=== PATIENT | female | born 1985 | race Caucasian/White ===

== ENCOUNTER 2024-10-12 08:29 | Outpatient (AMB) | payer OTHER, SELFPAY ==
--- NOTE | 2024-10-12 08:49 | MHC.PC.OV ---
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 Accompanied by: Self / Same As Patient Allergies codeine Allergy (Verified 10/12/24 09:06) Hives Medication List - Last Reconciled 10/12/24 by Meme Huffman MD No Known Home Meds Tobacco use date assessed: 10/12/24 Dental Screening Dental Screen Date: 10/12/24 Did you have a dental visit in the last 12 months?: Yes Did you have a dental problem in the last 6 months where you did not have access to dental care?: No Was dental information given to patient?: Patient has dentist HPI HPI Comments History of Present Illness Details The patient is a 39-year-old female presenting with concerns primarily related to obesity management. She has a history of considering surgical intervention for weight loss, specifically gastric bypass surgery. Unforeseen circumstances related to relocation prevented her from undergoing the procedure. The patient now seeks additional weight management solutions, including possible injectable treatments. Apart from weight-related issues, the patient also expressed concerns regarding skin lesion that developed after moving three years ago. Despite trying various [id number] treatments, the condition persists with fluctuating severity. The patient experiences instances of dyspnea and palpitations during routine activities, a condition she associates with her weight challenges. These episodes have become more frequent without an evident external trigger. The patient also reports significant menstrual irregularities, experiencing extended cycles of 13 to 14 days. 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 The patient retains an intrauterine device (IUD) since its implementation amidst inconsistent menstrual patterns. She also has mild recurrent major depression with anxiety that she has been able to deal with it with no need for counseling or medication. [facility] Surgical History History of tendonitis History of ovarian cyst Family History Mother Diabetes Hypertension Father No problems noted. Paternal Grandmother Breast cancer Social History (Updated 10/12/24 @ 09:10 by Meme Huffman MD) Housing: Apartment Alcohol intake: current Alcohol intake frequency: a few times a month Alcohol type: hard liquor Patient Tobacco Use Status: Never used Tobacco e-Cigarette/Vaping Use: Never Used Second Hand Smoke Exposure: No service: No Current occupational status: employed Current occupational exposures/hazards: No Cognitive needs: No Hearing needs: No Vision needs: Yes Questionnaire PHQ-9 Over the last 2 weeks, how often have you been bothered by any of the following problems? 1. Little interest or pleasure in doing things: several days 2. Feeling down, depressed, or hopeless: not at all 3. Trouble falling or staying asleep, or sleeping too much: nearly every day 4. Feeling tired or having little energy: several days 5. Poor appetite or overeating: several days 6. Feeling bad about yourself - or that you are a failure or have let yourself or your family down: not at all 7. Trouble concentrating on things, such as reading the newspaper or watching television: not at all 8. Moving or speaking so slowly that other people could have noticed. Or the opposite - being so fidgety or restless that you have been moving around a lot more than usual: not at all 9. Thoughts that you would be better off or of hurting yourself in some way: not at all Total score: 6 Depression Screening Interpretation: Positive Depression Screening Follow-up: Existing condition and Follow-up Visit Requested Depression Screening Done: Yes 18632 - PHQ-9 Billing: Yes Source: Developed by Drs. Robbi Parmar, Radha Dey, Parth Baltazar and colleagues, with an educational polo from [employer]. Thrive Questionnaire Date Thrive assessed: 10/06/24 I am a: Patient What is your living situation today?: I have a steady place to live Within the past 12 months, did the food you bought not last and you didn't have the money to get more?: Never true Within the past 12 months, did you worry whether your food would run out before you got money to buy more?: Never true Do you have trouble paying for medicines?: No Do you have trouble getting transportation to medical appointments?: No Do you have trouble paying your heating and electricity bill?: No Do you have trouble taking care of your child, family member or friend?: No Do you have trouble with day-to-day activities such as bathing, preparing meals, shopping, managing finances, etc.?: No Are you currently unemployed and looking for a job?: No Are you interested in more education?: No Please select the resources that you would like help with: None Currently or been in a relationship where the following occur: I choose not to answer THRIVE Score: 0 AUDIT C Alcohol Use Questionnaire (AUDIT-C) 1. How often do you have a drink containing alcohol?: 2-4 times a month 2. How many drinks containing alcohol do you have on a typical day when you are drinking?: 5 or 6 3. How often do you have six or more drinks on one occasion?: Monthly Total Score: 6 VAN-7 AMB Questionnaire VAN-7 Date VAN - 7 assessed: 10/12/24 Feeling nervous, anxious, or on edge: 1 = Several days Not being able to stop or control worryin = Not at all Worrying too much about different things: 1 = Several days Trouble relaxin = Several days Being so restless that it is hard to sit still: 1 = Several days Becoming easily annoyed or irritable: 1 = Several days Feeling afraid as if something awful might happen: 0 = Not at all Total VAN-7 score (0-4 normal; 5-9 mild; 10-14 moderate; 15-21 severe): 5 Source: Developed by Drs. Robbi Parmar, Radha Dey, aPrth Baltazar and colleagues, with an educational polo from [employer]. VAN-7 Assessment Billing VAN-7 Assessment Tool: VAN-7 Assessment 03094 Review of Systems Const All systems reviewed & are unremarkable except as noted in HPI and below Card Denies chest pain at rest, Denies chest pain with activity, Denies edema, Denies irregular heart rhythm, Denies claudication, Reports dyspnea, Reports dyspnea on exertion, Denies orthopnea, Denies paroxysmal nocturnal dyspnea and Denies slow heart rate Resp Denies cough, Reports dyspnea and Reports dyspnea on exertion Skin/Breast Reports lesions Neuro Denies lack of coordination Physical exam (Primary Care) Vital Signs: Last Vital Signs BP 136/88 10/12/24 08:50 BMI result Body Mass Index 50.5 BMI Assessment/Plan discussion: High BMI High, discussed plan: lifestyle, weight reduction, dietary and physical activity Tobacco/Smoking Status: Tobacco use Status Tobacco use date assessed 10/12/24 10/12/24 09:01 Patient Tobacco Use Status Never used Tobacco 10/12/24 09:10 e-Cigarette/Vaping Use Never Used 10/12/24 09:10 PHQ-9: PHQ-9 Score PHQ-9: Total score 6 10/12/24 09:12 Depression Screening Interpretation: Positive Depression Screening Follow-up: Existing condition and Follow-up Visit Requested Thrive Assessment: Date of Thrive Assessment Date Thrive assessed 10/06/24 10/12/24 08:52 Currently or been in a relationship where the following occur: I choose not to answer Resp Effort & Inspection: normal respiratory effort Auscultation: clear to auscultation bilaterally Cardio Jugular venous distension: no JVD Rate: regular rate Rhythm: regular rhythm Heart sounds: S1 normal heart sound present and S2 normal heart sound present Skin Lesions: lesion noted (left front side of the face) Extrem General: Yes full ROM Coding Level of Care Code New Pt Level 4 (19105) Complex EM visit Add On G2211 Diagnoses Mild recurrent major depression F33.0 BMI 50.0-59.9, adult Z68.43 VAN (generalized anxiety disorder) F41.1 Menstrual irregularity N92.6 Dyspnea R06.00 Skin lesion L98.9 Additional Codes VAN-7 Assessment Billing - VAN-7 Assessment Tool: VAN-7 Assessment 09506 ([id number]) PHQ-9 - 13295 - PHQ-9 Billing: Yes ([id number]) Time Spent (min) 25 Assessment & Plan Assessment & Plan (1) Mild recurrent major depression: Code(s): F33.0 - Major depressive disorder, recurrent, mild Category: Medical (2) BMI 50.0-59.9, adult: Code(s): Z68.43 - Body mass index [BMI] 50.0-59.9, adult Category: Medical (3) VAN (generalized anxiety disorder): Code(s): F41.1 - Generalized anxiety disorder Category: Medical (4) Menstrual irregularity: Code(s): N92.6 - Irregular menstruation, unspecified Category: Medical (5) Dyspnea: Code(s): R06.00 - Dyspnea, unspecified Category: Medical (6) Skin lesion: Code(s): L98.9 - Disorder of the skin and subcutaneous tissue, unspecified Category: Medical Plan I will refer the patient to a weight industrial management teacher to investigate options like injectable treatments, due to the previous cancellation of bariatric surgery. To address her skin lesion, a dermatological referral is warranted. To evaluate her dyspnea and palpitations, an EKG and chest X-ray are scheduled. Comprehensive blood tests, including panels for cholesterol, glucose, renal, hepatic functions, and thyroid levels, are planned. The patient will receive a referral to LITHOGRAPHIC CAMERA OPERATOR for her menstrual irregularities and IUD management. A mammogram is due for preventative screening, and moderation of alcohol intake was advised. Follow-up discussions will occur after diagnostics to reevaluate her treatment plan. Patient was informed and verbally consented to the use of an ambient scribe for clinic note documentation during this visit. I discussed various health concerns and management options with the patient. Regarding weight management, I emphasized the significance of lifestyle modifications and potential injectable therapies as alternatives to bariatric surgery. For her skin pigmentation issues, the benefits of consulting a art handler were highlighted, considering the ineffective results from [id number]-yxn-johnsud treatments. I explained the necessity of evaluating her cardiac health given her dyspnea and palpitations, hence the arrangement for an EKG and chest X-ray. Blood tests were planned to understand any underlying medical conditions. The importance of consistent LITHOGRAPHIC CAMERA OPERATOR follow-ups due to menstrual irregularities and the continued use of her IUD was stressed. Alongside discussing the mammogram's necessity, we briefly covered the need for reduced alcohol intake for her overall health. I detailed the referral process and assured her of further discussions upon receiving diagnostic results. Orders: Orders ECG 12 lead EKG Today R06.00 - Dyspnea, unspecified XR chest 2V Today R06.00 - Dyspnea, unspecified MM tomosynthesis screening BI Today Z12.31 - Encounter for screening mammogram for malignant neoplasm of breast Lipid Panel Today E78.5 - Hyperlipidemia, unspecified, Z68.43 - Body mass index [BMI] 50.0-59.9, adult Comprehensive [place]. Panel Fast Today Z68.43 - Body mass index [BMI] 50.0-59.9, adult Complete Blood Count Auto Diff Today Z68.43 - Body mass index [BMI] 50.0-59.9, adult Thyroid Stimulating Hormone Today Z68.43 - Body mass index [BMI] 50.0-59.9, adult Referrals Medical Weight Management Referral Z68.43 - Body mass index [BMI] 50.0-59.9, adult Dermatology Referral L98.9 - Disorder of the skin and subcutaneous tissue, unspecified LITHOGRAPHIC CAMERA OPERATOR Referral N92.6 - Irregular menstruation, unspecified Medications: Discontinued lidocaine 5% leave on most painful area for up to 12 hrs Discontinued Reason: Patient Completed Course 1 patch topical DAILY PRN 15 ea 0RF pain erythromycin Discontinued Reason: Patient Completed Course 1 appl ophthalmic (eye) TID 5 days 3.5 grams 0RF ketorolac Discontinued Reason: Patient Completed Course 10 mg PO TID 5 days PRN 15 tabs 0RF pain Patient Instructions: - Follow referral instructions for weight management, dermatology, and LITHOGRAPHIC CAMERA OPERATOR consultations. - Schedule and complete EKG and chest X-ray as advised. - Attend laboratory appointments for comprehensive blood tests. - Reduce alcohol intake, particularly on Fridays. - Follow up for a mammogram appointment. - Monitor symptoms and notify if there are any changes or worsening conditions.
[2024-10-12 08:50] VITALS: BP 136/88; BMI 50.5
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
--- OUTSIDE RECORDS SUMMARY | 2024-10-12 09:02 | XMS_ITS | Clinical Summary ---
Author Organization [facility] ity Address [address] [place] [address] Care Team Providers Care Metal Spray Operator Name Role Phone Unavailable Primary Care Provider Unavailabl e Social History Tobacco Use Types Packs/Day Years Used Date Smoking Tobacco: Never Assessed Comments Unknown Sex and Gender Information Value Date Recorded Sex Assigned at Not on file Legal Sex Female 4:33 AM EST Gender Identity Not on file Sexual Orientation Not on file Plan of Treatment Health Maintenance Due Date Last Done Comments Breast Cancer Screening 1984 DTaP,Tdap,and Td Vaccines (1 - Tdap) 2003 Hepatitis B Vaccines (1 of 3 - 19+ 3-dose series) 2003 Cervical Cancer Screening: P ap Smear 2005 COVID-19 Vaccine ( - 2023-2 5 season) 2024 Influenza Vaccine (Season Ended) 2025 HIB Vaccines Aged Out No longer eligi ble based on patient's age to complete this topic HPV Vaccines Aged Out No longer eligi ble based on patient's age to complete this topic Hepatitis A Vaccines Aged Out No long er eligible based on patient's age to complete this topic IPV Vaccines Aged Out No longer eligi ble based on patient's age to complete this topic MMR Vaccines Aged Out No longer eligi ble based on patient's age to complete this topic Meningococcal ACWY Vaccine Aged Out N o longer eligible based on patient's age to complete this topic Meningococcal B Vacine Aged Out No lo nger eligible based on patient's age to complete this topic Pneumococcal Vaccine: Pediat rics (0 to 5 Years) and At-Risk Patients (6 to 64 Years) Aged Out No longer eligible b ased on patient's age to complete this topic RSV Immunization Patients Un franchesca 20 months Aged Out No longer eligible b ased on patient's age to complete this topic Varicella Vaccines Aged Out No longer eligible based on patient's age to complete this topic
== END 2024-10-12 09:18 | disposition home or self-care (01) ==
LOC: HO.HMCH 08:30
PROVIDERS: Visit Provider Internal Medicine
DX: F33.0 Major depressive disorder, recurrent, mild (principal); Z68.43 Body mass index [BMI] 50.0-59.9, adult; F41.1 Generalized anxiety disorder; N92.6 Irregular menstruation, unspecified; R06.00 Dyspnea, unspecified; L98.9 Disorder of the skin and subcutaneous tissue, unspecified

== ENCOUNTER → 2024-10-12 08:29 | Outpatient (BNVA) | payer OTHER, SELFPAY | PROVIDERS: Visit Provider Internal Medicine | DX: F33.0 Major depressive disorder, recurrent, mild (principal); F41.1 Generalized anxiety disorder; N92.6 Irregular menstruation, unspecified; R06.00 Dyspnea, unspecified; L98.9 Disorder of the skin and subcutaneous tissue, unspecified | CPT/HCPCS: 96127; 99202 ==

== ENCOUNTER → 2024-11-05 13:40 | Outpatient (BNVA) | payer OTHER, SELFPAY | PROVIDERS: Visit Provider Physician Assistant Surgical ==

== ENCOUNTER 2024-11-11 08:09 | Outpatient (AMB) | payer OTHER, SELFPAY ==
--- OUTSIDE RECORDS SUMMARY | 2024-11-11 08:19 | XMS_ITS | Clinical Summary ---
Author Organization [facility] ity Address [address] [place] [address] Care Team Providers Care Driller And Reamer Name Role Phone Unavailable Primary Care Provider [...] age to complete this topic Meningococcal B Vaccine Aged Out No l onger eligible based on patient's age to complete [...]
--- OUTSIDE RECORDS SUMMARY | 2024-11-11 08:19 | XMS_ITS | Data Portability ---
Author Organization [facility] [place] Medicaid MRI Address [address] [place] [address] Care Team Providers Care Marketing Communications Leader Name Role Phone PREET WATSON Primary Care Provider [phone] PREET WATSON Referring Provider [phone] AAMIR LARA Analytical Technician HAIDER CLARK Analytical Technician [phone] Unavailable Referring Provider Unavailable Assessment Encounter Date [...] contrast - work related injury 2017 018 [facility], [address] [place] [address], [address], 8 14:37:43 Medication Orders ibuprofen 800 mg tablet 2017 018 INTERFACE [id number], [address] [place], [address], 8 10:52:34 methylpred nisolone acetate 40 mg/mL suspension for injection 2017 018 [email or web address] Not available 08:26:45 Patient TargetsNo targets recorded. Patient Instructions Encounter Date Encounter Id Patient Instructions Last Modified By Organization Details Last Modified Time 03/25/2017 [id number] patient was instructed that we would not [...] contr ast No observ ation record ed. [facility] (Medical Records) [address] [place] [address], [address], 12/27/2017 16:53:39 Result Notes None recorded. Problems No Known Problems Procedures Surgical History Date Name Laterality Status Provider Name and Address Organization Details Recorded Time 8 Shoulder Subacromial - LEFT - CS Injection completed MAYLIN Fitzgerald [address] [place] [address], [phone], [facility] 02/07/2018 08:31:10 7 Eric Suture Removal completed Nelson Reyes MD [address] [place], [phone], [facility] 12/31/2016 09:18:08 7 Eric Suture Removal completed Nelson Reyes MD [address] [place], [address], [facility] 12/24/2016 10:31:04 Imaging Results Imaging Date Name Status LastModified by Organiz ation Details LastModified Time 12/27/2017 MRI, shoulder, w/o contrast completed [facility] (Medical Records) [address] [place] [address], [address], 12/27/2017 16:53:39 Procedure Notes None recorded. Medical [...] Updated DateTime 02/07/2018 154.94 cm 46.5 kg/m2 135049.72 g Meme Kingston [facility] 02/07/2018 08:10:22 Date Recorded Body height Body mass index (BMI) Body weight Provider Name and Address Organization Details Last Updated DateTime 03/07/2018 154.94 cm 46.5 kg/m2 197221.72 g Patricia Arreola [facility] 03/07/2018 10:41:58 Date Recorded Pain severity - 0-10 verbal numeric rating [Score] - Reported Pain severity - 0-10 verbal numeric rating [Score] - Reported Provider Name and Address Organization Details Last Updated DateTime 03/07/2018 5 7 Not Available [facility] 05:53:08 Date Recorded Body height Body mass index (BMI) Body weight Provider Name and Address Organization Details Last Updated DateTime 03/25/2017 154.94 cm 46.5 kg/m2 226400.72 g Meme Kingston [facility] 03/25/2017 09:24:55 Date Recorded Body height Body mass index (BMI) Body weight Provider Name and Address Organization Details Last Updated DateTime 12/17/2017 154.94 cm 46.5 kg/m2 990950.72 g Meme Kingston [facility] 12/17/2017 13:24:32 Date Recorded Body height Body mass index (BMI) Body weight Provider Name and Address Organization Details Last Updated DateTime 12/27/2017 154.94 cm 46.5 kg/m2 431567.72 g Melissa Up [facility] 12/27/2017 09:06:42 Date Recorded Pain severity - 0-10 verbal numeric rating [Score] - Reported Provider Name and Address Organization Details Last Updated DateTime 12/27/2017 4 Not Available [facility] 8 05:52:56 Social History Question Answer Notes LastModified by Organizat ion Details LastModified Time Tobacco Smoking Status Former Smoker Bridgette salcedo [facility] 08/15/2016 13:03:04 What Is [...] available 2016 13:02:55 Medical History Condition Response Coronary Artery Disease N Heart Problems N Hereditary Defects N Gout N Tremors/Seizures/Dizziness/Epilepsy N Excessive Thirst/Fatigue N Lung Disease N Blood Clots N Fever, Chills, Headaches N Pacemaker N Heart Disease/Problems N Breathing Problems N Heart Attack (NE) N Sexually Transmitted Diseases N Bleeding Disorder/Tendencies or Anemia Y Stomach Ulcers N Diabetes N Skin Problems/Rash/Boils N Depression/Psychiatric Problems N Arthritis Y Tuberculosis N Cancer N Stroke N Eye Problems N Leg or Foot Ulcers N HIV/AIDS N Chest Pain/Heart Attack/Arrhythmia N Urinary Pain/Frequency/Retention N Stomach Problems/Reflux/GERD N Hepatitis N Rheumatoid Arthritis N Hypertension/High Blood Pressure N Osteoporosis N Kidney Disease N Gynecological HistoryNo gynecological history recorded. Obstetrics History GPAL:G 0 P 0 0 0 0 Past Encounters Encounter ID Performer Location Encounter Start Date Encounter Closed Date Diagnosis/Indication Diagnosis SNOMED-CT Code Diagnosis ICD10 Code Diagnosis Note [id number] Belem BARRERANKathy [address] [address] 08/15/2016 12:36:37 08/15/2016 14:14:17 Pain of joint of wrist 359910314 M25.539 Radial sty loid tenosynovitis 91742609 M65.4 [id number] Nelson Reyes MD OFFICE-[facility] a [address] [address] 09/12/2016 10:59:39 09/12/2016 11:51:06 Pain of joint of hand 074751176 M79.643 Radial sty loid tenosynovitis 77076473 M65.4 [id number] Belem Graham OFFICE-N. [address] [place] [address] 10/08/2016 10:37:56 10/08/2016 12:03:35 Radial styloid tenosynovitis 66808630 M65.4 Left [id number] [facility] [address] [address] 12/17/2016 12:14:25 12/17/2016 13:15:47 Radial styloid tenosynovitis 59721357 M65.4 Left [id number] [facility] [address] [address] 12/24/2016 09:56:04 12/24/2016 10:32:15 Radial styloid tenosynovitis 25313805 M65.4 [id number] Nelson [facility]yes [facility] [address] [address] 12/31/2016 08:59:51 12/31/2016 09:31:20 Radial styloid tenosynovitis 30369635 M65.4 [id number] Nelson Reyes MD OFFICE - [facility] [address] 01/28/2017 08:41:23 01/28/2017 09:54:57 Radial styloid tenosynovitis 17054716 M65.4 [id number] Nelson Reyes MD OFFICE - [address] [address] 02/25/2017 08:49:55 02/25/2017 09:14:21 Radial styloid tenosynovitis 68133311 M65.4 [id number] Belem Graham OFFICE - [address] [address] 03/25/2017 09:16:00 03/25/2017 10:03:29 Radial styloid tenosynovitis 46938473 M65.4 [id number] Juan Pablo Holt MD OFFICE - [address] [address] 12/17/2017 13:01:39 12/17/2017 14:12:00 Sprain of shoulder rotator cuff 1204408785 04 S43.422A [id number] Juan Pablo Holt MD OFFICE - [place] [address] [place] [address] 12/27/2017 08:55:28 12/27/2017 09:13:51 Sprain of shoulder rotator cuff 2855793318 04 S43.422A [id number] MAYLIN Fitzgerald OFFICE - [place] [address] [place] [address] 02/07/2018 08:00:13 02/07/2018 08:31:04 Sprain of shoulder rotator cuff 2382165437 04 S43.422A [id number] MAYLIN Fitzgerald OFFICE - [place] [address] [place] [address] 03/07/2018 10:17:29 03/07/2018 10:56:27 Sprain of shoulder rotator cuff 5433862523 04 S43.422A Health Concerns Section Related Observation LastModified by Organization Detai ls LastModified Time None Recorded Concern Status LastModified by Organization Details LastModified Time None Recorded Advance Directives Directive None Recorded Payers Insurance Date Sequence Insurance Name Policy Number Policy Gomez Covered Member ID Gomez Member ID Guarantor Name 01/28/2017 1 [email or web address] Yas Worthington [id number] Yas Worthington 10/08/2016 1 [place] [facility] Yas Worthington [id number] Yas Worthington 12/18/2017 [employer] Yas Worthington 12/19/2017 [employer] Yas Worthington 03/04/2018 1 [facility] (O) [id number] Yas Wortihngton [id number] Yas Worthington Notes Date Note Type Note [...] she denies numbness and tingling. Belem Graham [address] [place] [address], [phone], [facility] 03/25/2017 09:45:15 12/17/2017 text/html This is [...] She went to the emergency room at [facility] where x-rays of her shoulder were [...] for plantar fasciitis. Juan Pablo Holt MD [address] [place] [address], [phone], [facility] 12/17/2017 13:56:47 12/27/2017 text/html Judy is seen in follow-up. MRI scan was completed this morning at [facility]. Review of the study shows degenerative cyst in the posterior aspect of the humeral head with some very small sub-bursal fluid collection. No evidence of rotator cuff tear or significant labral pathology. Biceps tendon appears to be intact as well. She is currently working full duty and having some mild discomfort at work Juan Pablo Holt MD [address] [place] [address], [phone], [facility] 12/27/2017 09:14:21 02/07/2018 text/html Judy is seen in follow-up. She is currently working full duty and has continued to have the same symptoms. She finished physical therapy after her last visit with us. MAYLIN Fitzgerald [address] [place] [address], [phone], [facility] 02/07/2018 08:33:10 03/07/2018 text/html Yas is follo wing up here on her sprain of rotator cuff. She did not have great relief with the injection last time. She continues her home exercises and still has persistent pain. She has been working full-time. MAYLIN Fitzgerald [address] [place], [address], [facility] 03/07/2018 11:14:50 OBGyn Episode No OBEpisode recorded.
--- NOTE | 2024-11-11 10:30 | MHC.OFFVISWM ---
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 BMI 50.7: Details: Start time: 10.30am, End time: 11.07am ?I spent 32 minutes speaking with the patient on the phone plus an additional 5 minutes reviewing and updating records for a total of 37 minutes HPI Comments Details: Previous weight loss: previous weight loss program in preparation of bariatric surgery (lost 20lbs) Wakes up: 4.20am, Sleeps: 7.30pm Breakfast: most often skips, 5am (ham and cheese sandwich) Lunch: 1pm (left over from night before) Dinner: 4pm (rice, beans, pork, or chicken) Snacks: 10am (chips, orange), 5pm (chips, cookies, apple, grapes) Exercise: none Beverages: Coffee: none, tea: none, soda: none, juice: Crystal light, ETOH: 1/wk (Tequila a few shots) [facility] Medical History (Updated 11/11/24 @ 10:32 by Erasto Quintanilla MD) Morbid obesity Surgical History History of tendonitis History of ovarian cyst Family History Mother Diabetes Hypertension Father No problems noted. Paternal Grandmother Breast cancer Social History (Updated 10/12/24 @ 09:10 by Meme Huffman MD) Housing: Apartment Alcohol intake: current Alcohol intake frequency: a few times a month Alcohol type: hard liquor Patient Tobacco Use Status: Never used Tobacco e-Cigarette/Vaping Use: Never Used Second Hand Smoke Exposure: No service: No Current occupational status: employed Current occupational exposures/hazards: No Cognitive needs: No Hearing needs: No Vision needs: Yes Telehealth Telehealth Telehealth Platform: Telephone Location of provider rendering services: practice address Location of patient: address on file Patient Identification confirmed using: Name, : Yes Telehealth method: voice only Patient verbally consented to treatment: Yes Patient verbally consented to billing insurance company: Yes Patient informed of any privacy concerns related to visit: Yes Minutes spent on Phone/Video with Pt.: 37 Assessment & Plan Assessment & Plan (1) Morbid obesity: Code(s): E66.01 - Morbid (severe) obesity due to excess calories Category: Medical Plan: 1.? Plan for lap sleeve gastrectomy. If diaphragmatic or ventral hernias are present at time of surgery, these will be repaired laparoscopically as well. I emphasized the importance of close follow-up, adherence to instructions and good communication. The surgery does not replace the need to change your lifestlyle which is the cause of the obesity problem. The surgery provides the motivation to try again to change your lifestyle, it reduces the appetite and make the transition to a better lifestyle easier and doubles the amount of weight you would lose compared to doing the lifestyle change without the surgery. You will need to be on a liquid diet with protein shakes for 2 weeks before surgery to maximize weight loss and boost your nutritional status to recover better from surgery and also for the first two weeks after surgery to let the stomach heal before we introduce other foods. After the first 2 weeks we will introduce protein bars and soft foods like scrambled eggs, cottage cheese and yogurt and after the 6th week will introduce meat, fish and cooked vegetables in small amounts. Over time you should be able to eat everything in small amounts. Side effects like nausea, vomiting, heartburn or abdominal pain are not common in the practice unless you are not following in the practice. This operation requires lifetime commitment to following in our practice and communication with me. You will much less weight and experience side effects if you don?t communicate or not following in the practice. Complications are rare and in our practice is about 1/10 of the national average. However, you can develop bleeding that may require transfusion (hasn?t happened for year in the practice), you may from complications (we did not have any deaths in the practice) and infections. Infections are usually a result of breakdown in communication or not understanding or following directions correctly. They are difficult to treat, they can happen during the first 6 weeks, they may require to be in the hospital for weeks or even months, not being able to eat by mouth and you may have drains and surgeries to try and correct the issue. Other risks and complications include possible conversion to an open procedure, leaks, small bowel obstruction, blood clots, cardiac, or pulmonary complications, as termite control servicer complications such as ulcers, insufficient weight loss and vitamin deficiencies. 2. You will receive a link of our software arnaldo to generate an individualized nutritional and exercise plan specific for you. Please send me a screenshot of the plans you will generate Meal to include lean meat (beef, fish, pork, turkey, chicken), or hungarian yogurt, or egg whites, or beans with a salad with olive oil and fruits (berries, pears, apples, kiwi). Avoid salt, breads, potatoes, rice, pasta, desserts. ?3. If you choose shakes, each shake would be drunk slowly, like coffee in a period of 2 hours. ?4. If you choose bars, cut each bar in 4 pieces and eat each piece in 30min ?to make each bar last 2 hours. ?5. I emphasized the importance of measuring accurately the food portion and measure it when serving the food in plate ?6. The meal portions include a specific number of forks of meat and salad. You always eat the meat portion but you can replace up to half of salad/vegetables portion with rice, potatoes or pasta, or a fruit ?if you like. The less you do it the better weight loss will be. ?7. One full-size fork is what it can be scooped on the fork without falling aside and not what can be bit with the fork. Use regular forks like those you find in a typical restaurant. ?8.? Please buy the body composition scale we discussed and send me weight measurements as soon as possible and then once a week. Always include your diet and exercise plan. 9. The best choice would be to purchase a stationary bike, elliptical or treadmill at home that can track calories. You can create and exercise plan with the [employer] arnaldo. ?10.?It is important of avoiding and for at least 18 months postoperatively and has been discussed at the infosession. ?11. Goal is to lose at least 1.5-2lbs per week ?12. Goal to lose 10% of your weight before surgery, which is about 27lbs. Ultimate weight goal: 260lbs before surgery 13. Please follow the diet plan exactly without any change. If you don't like something about the plan or you feel hungry you need to communicate with me so I can help you revise the plan. You should not change the plan yourself. 14. To be scheduled for EGD to assess the stomach's anatomy. The possibility of biopsies was discussed. Patient needs to avoid use of NSAIDs and aspirin for 1 week prior to EGD. You must be on liquids only the day before your endoscopy. Risks of perforation and bleeding was discussed with the patient. This will be an outpatient procedure with IV sedation. Orders: Orders Hemoglobin A1c Today E66.01 - Morbid (severe) obesity due to excess calories, Z68.43 - Body mass index [BMI] 50.0-59.9, adult Complete Blood Count Auto Diff Today E66.01 - Morbid (severe) obesity due to excess calories, Z68.43 - Body mass index [BMI] 50.0-59.9, adult Lipid Panel Today E66.01 - Morbid (severe) obesity due to excess calories, Z68.43 - Body mass index [BMI] 50.0-59.9, adult Comprehensive Met. Panel Today E66.01 - Morbid (severe) obesity due to excess calories, Z68.43 - Body mass index [BMI] 50.0-59.9, adult Vitamin B12 and Folate Today E66.01 - Morbid (severe) obesity due to excess calories, Z68.43 - Body mass index [BMI] 50.0-59.9, adult Vitamin B1 Today E66.01 - Morbid (severe) obesity due to excess calories, Z68.43 - Body mass index [BMI] 50.0-59.9, adult TSH reflex Free T4 Today E66.01 - Morbid (severe) obesity due to excess calories, Z68.43 - Body mass index [BMI] 50.0-59.9, adult US abdomen comp w elastography Today E66.01 - Morbid (severe) obesity due to excess calories, Z68.43 - Body mass index [BMI] 50.0-59.9, adult XR chest 2V Today E66.01 - Morbid (severe) obesity due to excess calories, Z68.43 - Body mass index [BMI] 50.0-59.9, adult FL upper GI w air Today E66.01 - Morbid (severe) obesity due to excess calories, Z68.43 - Body mass index [BMI] 50.0-59.9, adult Insulin Today E66.01 - Morbid (severe) obesity due to excess calories, Z68.43 - Body mass index [BMI] 50.0-59.9, adult H Pylori Breath Test Today E66.01 - Morbid (severe) obesity due to excess calories, Z68.43 - Body mass index [BMI] 50.0-59.9, adult IRON PROFILE Today E66.01 - Morbid (severe) obesity due to excess calories, Z68.43 - Body mass index [BMI] 50.0-59.9, adult Zinc Today E66.01 - Morbid (severe) obesity due to excess calories, Z68.43 - Body mass index [BMI] 50.0-59.9, adult C Reactive Protein Today E66.01 - Morbid (severe) obesity due to excess calories, Z68.43 - Body mass index [BMI] 50.0-59.9, adult Vitamin A Today E66.01 - Morbid (severe) obesity due to excess calories, Z68.43 - Body mass index [BMI] 50.0-59.9, adult Ferritin Today E66.01 - Morbid (severe) obesity due to excess calories, Z68.43 - Body mass index [BMI] 50.0-59.9, adult Vitamin D 25-OH Total Today E66.01 - Morbid (severe) obesity due to excess calories, Z68.43 - Body mass index [BMI] 50.0-59.9, adult ECG 12 lead EKG Today E66.01 - Morbid (severe) obesity due to excess calories, Z68.43 - Body mass index [BMI] 50.0-59.9, adult Referrals Behavioral Health Referral E66.01 - Morbid (severe) obesity due to excess calories, Z68.43 - Body mass index [BMI] 50.0-59.9, adult Nutrition/Dietitian Referral E66.01 - Morbid (severe) obesity due to excess calories, Z68.43 - Body mass index [BMI] 50.0-59.9, adult
[2024-11-11 10:38] VITALS: BMI 50.7
== END 2024-11-11 11:08 | disposition home or self-care (01) ==
LOC: HO.HBS 08:09
PROVIDERS: Visit Provider Surgery
DX: E66.01 Morbid (severe) obesity due to excess calories (principal); E66.813 Obesity, class 3; Z68.43 Body mass index [BMI] 50.0-59.9, adult
CPT/HCPCS: 99203

== ENCOUNTER → 2024-11-11 08:09 | Outpatient (BNVA) | payer OTHER, SELFPAY | PROVIDERS: Visit Provider Surgery ==

== ENCOUNTER 2024-11-20 08:02 | Outpatient (REF) | payer OTHER, SELFPAY ==
--- NOTE | ~2024-11-20 | XR_ITS ---
EXAMINATION: XR CHEST 2 VIEWS HISTORY: E66.01 - Morbid (severe) obesity due to excess calories COMPARISON: Comparison is made with the prior examination dated 10/11/2023. FINDINGS: PA and lateral views of the chest are submitted. The lungs are expanded and clear. There is no pleural effusion, pneumothorax, or pulmonary vascular congestion. The heart is normal in size. The bones are intact. XR/XR chest 2V IMPRESSION: No acute cardiopulmonary abnormality. Electronically signed by: Robbi English MD 11/20/2024 08:59 AM EDT
--- OUTSIDE RECORDS SUMMARY | 2024-11-20 08:04 | XMS_ITS | Clinical Summary ---
Author Organization [facility] ity Address [address] [place] [address] Care Team Providers Care Demographer Name Role Phone Unavailable Primary Care Provider [...]
--- OUTSIDE RECORDS SUMMARY | 2024-11-20 08:04 | XMS_ITS | Data Portability ---
Author Organization [email or web address] [place] Medicaid MRI Address [address] [place] [address] Care Team Providers Care Physical Science Professor Name Role Phone PREET WATSON Primary Care Provider PREET WATSON Referring Provider [phone] AAMIR LARA Product Architect HAIDER CLARK Product Architect [phone] Unavailable Referring Provider Unavailable Assessment Encounter Date [...] contrast - work related injury 2017 018 [facility], [address] [place] [address], [address], 8 14:37:43 Medication Orders ibuprofen 800 mg tablet 2017 018 INTERFACE [id number], [address] [place], [address], 8 10:52:34 methylpred nisolone acetate 40 mg/mL suspension for injection 2017 018 [email or web address] Not available 08:26:45 Patient TargetsNo targets recorded. Patient Instructions Encounter Date Encounter Id Patient Instructions Last Modified By Organization Details Last Modified Time 03/25/2017 [id number] patient was instructed that we would not [...] contr ast No observ ation record ed. [facility] (Medical Records) [address] [place] [address], [id number], 12/27/2017 16:53:39 Result Notes None recorded. Problems No Known Problems Procedures Surgical History Date Name Laterality Status Provider Name and Address Organization Details Recorded Time 8 Shoulder Subacromial - LEFT - CS Injection completed MAYLIN Fitzgerald [address] [place] [address], [phone], [facility] 02/07/2018 08:31:10 7 Eric Suture Removal completed Nelson Reyes MD [address] [place], [address], [facility] 12/31/2016 09:18:08 7 Eric Suture Removal completed Nelson Reyes MD [address] [place], [address], [facility] 12/24/2016 10:31:04 Imaging Results Imaging Date Name Status LastModified by Organiz ation Details LastModified Time 12/27/2017 MRI, shoulder, w/o contrast completed [facility] (Medical Records) [address] [place] [address], [id number], 12/27/2017 16:53:39 Procedure Notes None recorded. Medical [...] Updated DateTime 02/07/2018 154.94 cm 46.5 kg/m2 322791.72 g Meme [facility] 02/07/2018 08:10:22 Date Recorded Body height Body mass index (BMI) Body weight Provider Name and Address Organization Details Last Updated DateTime 03/07/2018 154.94 cm 46.5 kg/m2 085148.72 g Patricia Arreola [facility] 03/07/2018 10:41:58 Date Recorded Pain severity - 0-10 verbal numeric rating [Score] - Reported Pain severity - 0-10 verbal numeric rating [Score] - Reported Provider Name and Address Organization Details Last Updated DateTime 03/07/2018 5 7 Not Available [facility] 05:53:08 Date Recorded Body height Body mass index (BMI) Body weight Provider Name and Address Organization Details Last Updated DateTime 03/25/2017 154.94 cm 46.5 kg/m2 371185.72 g [facility] 03/25/2017 09:24:55 Date Recorded Body height Body mass index (BMI) Body weight Provider Name and Address Organization Details Last Updated DateTime 12/17/2017 154.94 cm 46.5 kg/m2 170994.72 g Meme [facility] 12/17/2017 13:24:32 Date Recorded Body height Body mass index (BMI) Body weight Provider Name and Address Organization Details Last Updated DateTime 12/27/2017 154.94 cm 46.5 kg/m2 720568.72 g Melissa Up [facility] 12/27/2017 09:06:42 Date Recorded Pain severity - 0-10 verbal numeric rating [Score] - Reported Provider Name and Address Organization Details Last Updated DateTime 12/27/2017 4 Not Available [facility] 8 05:52:56 Social History Question Answer Notes LastModified by Organizat ion Details LastModified Time Tobacco Smoking Status Former Smoker Bridgette salcedo [facility] 08/15/2016 13:03:04 Auto Related Injury? No Information not available 08/15/2016 Which Illicit Or Recreational Drugs Have You Used? No Information not available 08/15/2016 What Was The Date Of Your Most Recent Tobacco Screening? 03/07/2018 Information not available 01/30/2019 How Much Tobacco Do You Smoke? No [email or web address] Information not available 09/12/2016 Work Related Injury? Yes Information not available 08/15/2016 Sex: Unknown Functional Status Question Answer Note LastModified by Organizat ion Details LastModified Time What is your level of alcohol consumption? Occasional Information not available 08/15/2016 Are you currently employed? Yes Information not available 08/15/2016 Mental Status None recorded. Family History Relationship Description Onset Age of this Age Resolved Age Notes LastModified by Organization Details LastModified Time Mother Diabetes mellitus Not available 2016 13:02:55 Medical History Condition Response Hereditary Defects N Coronary Artery Disease N Heart Problems N Gout N Tremors/Seizures/Dizziness/Epilepsy N Excessive Thirst/Fatigue [...] SNOMED-CT Code Diagnosis ICD10 Code Diagnosis Note [id number] Belem Graham OFFICE-N. [facility] a [address] [address] 08/15/2016 12:36:37 08/15/2016 14:14:17 Pain of joint of wrist 467903288 M25.539 Radial sty loid tenosynovitis 54247916 M65.4 [id number] Nelson Reyes MD OFFICE-N. [facility] a [address] [address] 09/12/2016 10:59:39 09/12/2016 11:51:06 Pain of joint of hand 887725986 M79.643 Radial sty loid tenosynovitis 48956907 M65.4 [id number] Belem [facility] [address] [address] 10/08/2016 10:37:56 10/08/2016 12:03:35 Radial styloid tenosynovitis 51586871 M65.4 Left [id number] Belem [facility] [address] [address] 12/17/2016 12:14:25 12/17/2016 13:15:47 Radial styloid tenosynovitis 90358938 M65.4 Left [id number] Nelson [facility] [address] [address] 12/24/2016 09:56:04 12/24/2016 10:32:15 Radial styloid tenosynovitis 22146406 M65.4 [id number] Nelson [facility] [address] [address] 12/31/2016 08:59:51 12/31/2016 09:31:20 Radial styloid tenosynovitis 04631973 M65.4 [id number] Nelson Reyes MD OFFICE - [address] [address] 01/28/2017 08:41:23 01/28/2017 09:54:57 Radial styloid tenosynovitis 45866445 M65.4 [id number] Nelson Reyes MD OFFICE - [address] [address] 02/25/2017 08:49:55 02/25/2017 09:14:21 Radial styloid tenosynovitis 24617728 M65.4 [id number] Belem Graham OFFICE - [address] [address] 03/25/2017 09:16:00 03/25/2017 10:03:29 Radial styloid tenosynovitis 10179146 M65.4 [id number] Juan Pablo Holt MD OFFICE - [address] [address] 12/17/2017 13:01:39 12/17/2017 14:12:00 Sprain of shoulder rotator cuff 7269313096 04 S43.422A [id number] Juan Pablo Holt MD OFFICE - [place] [address] [place] [address] 12/27/2017 08:55:28 12/27/2017 09:13:51 Sprain of shoulder rotator cuff 8664043444 04 S43.422A [id number] MAYLIN Fitzgerald OFFICE - [place] [address] [place] [address] 02/07/2018 08:00:13 02/07/2018 08:31:04 Sprain of shoulder rotator cuff 9949287787 04 S43.422A [id number] MAYLIN Fitzgerald OFFICE - [place] [address] [place] [address] 03/07/2018 10:17:29 03/07/2018 10:56:27 Sprain of shoulder rotator cuff 1918090028 04 S43.422A Health Concerns Section Related Observation LastModified by Organization Detai ls LastModified Time None Recorded Concern Status LastModified by Organization Details LastModified Time None Recorded Advance Directives Directive None Recorded Payers Insurance Date Sequence Insurance Name Policy Number Policy Gomez Covered Member ID Gomez Member ID Guarantor Name 01/28/2017 1 [employer] Yas Worthington [id number] Yas Worthington 10/08/2016 1 [place] [facility] Yas Worthington [id number] Yas Worthington 12/18/2017 [employer] Yas Worthington 12/19/2017 [employer] Yas Worthington 03/04/2018 1 [facility] (O) [id number] Yas Worthington [id number] Yas Worthington Notes Date Note Type Note [...] she denies numbness and tingling. Belem Graham [address] [place] [address], [phone], [facility] 03/25/2017 09:45:15 12/17/2017 text/html [...] She went to the emergency room at [facility] where x-rays of her shoulder were [...] for plantar fasciitis. Juan Pablo Holt MD [address] [place] [address], [phone], [facility] 12/17/2017 13:56:47 12/27/2017 text/html Judy is seen in follow-up. MRI scan was completed this morning at [facility]. Review of the study shows degenerative cyst in the posterior aspect of the humeral head with some very small sub-bursal fluid collection. No evidence of rotator cuff tear or significant labral pathology. Biceps tendon appears to be intact as well. She is currently working full duty and having some mild discomfort at work Juan Pablo Holt MD [address] [place] [address], [phone], [facility] 12/27/2017 09:14:21 02/07/2018 text/html Judy is seen in follow-up. She is currently working full duty and has continued to have the same symptoms. She finished physical therapy after her last visit with . MAYLIN Fitzgerald [address] [place] [address], [phone], [facility] 02/07/2018 08:33:10 03/07/2018 text/html Yas is follo wing up here on her sprain of rotator cuff. She did not have great relief with the injection last time. She continues her home exercises and still has persistent pain. She has been working full-time. MAYLIN Fitzgerald [address] [place], [address], [facility] 03/07/2018 11:14:50 OBGyn Episode No OBEpisode recorded.
--- NOTE | 2024-11-20 08:11 | ECG_ITS ---
Test Reason : MOR OBS Blood Pressure : */* mmHG Vent. Rate : 97 BPM Atrial Rate : 97 BPM P-R Int : 124 ms QRS Dur : 72 ms QT Int : 372 ms P-R-T Axes : 39 45 13 degrees QTcB Int : 472 ms Normal sinus rhythm Normal ECG No previous ECGs available Referred By: Erasto Quintanilla Electronically Signed By: JAGUAR SOUSA MD
[2024-11-20 08:33] LABS: MANUAL DIFF FLAG NO
[2024-11-20 09:41] LABS: Basophils Percent Auto 0.3 % (0-2); Eosinophils Absolute Auto 0.3 X10*3/uL (0.0-0.4); Hematocrit 30.2 % (37.0-47.0); Hemoglobin 8.9 g/dl (12.0-16.0); Imm Gran Abs Auto 0.05 X10*3/uL (0.00-0.03); Imm Gran Pct Auto 0.5 % (0.0-0.4); Lymphocytes Absolute Auto 2.6 X10*3/uL (1.2-4.9); Lymphocytes Percent Auto 27.2 % (20-40); Mean Corpuscular HGB Conc 29.5 g/dl (31.0-35.0); Mean Corpuscular Hemoglobin 21.4 pg (27.0-33.0); Mean Corpuscular Volume 72.8 fL (80.0-98.0); Mean Platelet Volume 9.8 fL (9.4-12.3); Monocytes Absolute Auto 0.6 X10*3/uL (0.1-1.2); Monocytes Percent Auto 6.5 % (2-11); Neutrophils Percent Auto 62.5 % (45-73); Platelet Count 364 X10*3/uL (160-400); Red Blood Count 4.15 X10*6/uL (4.20-5.50); Red Cell Distribution Width 15.5 % (11.0-16.0); White Blood Count 9.6 X10*3/uL (4.8-10.8)
[2024-11-20 09:47] LABS: Estimated Average Glucose 120 mg/dL; Hemoglobin A1C 97.3402 umol/L; Hemoglobin A1c % 5.8 % (<6.0); Total Hemoglobin (HGBA1C) 2408.7019 umol/L
[2024-11-20 10:50] LABS: Folate 9.9 ng/mL (> or = 4.0); Vitamin B12 277 pg/mL (200-900)
[2024-11-20 14:28] LABS: Alanine Aminotransferase 34 U/L (0-31); Albumin Level 3.7 g/dL (3.5-5.0); Alkaline Phosphatase 90 U/L (39-117); Anion Gap 13 (12-20); Aspartate Amino Transferase 32 U/L (5-31); Bilirubin Total 0.4 mg/dL (0.0-1.0); Blood Urea Nitrogen 10 mg/dL (9-16); C Reactive Protein 4.07 mg/dL (< or = 0.50); Calcium 8.5 mg/dL (8.4-10.2); Carbon Dioxide 25 mmol/L (22-29); Chloride 106 mmol/L (96-108); Cholesterol 190 mg/dL (<200); Estimated Glomerular Filt Rate > 60; Glucose Fasting 95 mg/dL (60-99); Glucose Random 94 mg/dL (60-115); HDL Cholesterol 40 mg/dL (>40); Iron 20 mcg/dL (30-160); LDL Cholesterol Calculated 133 mg/dL (<100); Percent Iron Saturation 5 % (15-50); Potassium 3.7 mmol/L (3.3-5.1); Sodium 140 mmol/L (135-145); Total Iron Binding Capacity 367 mcg/dL (228-428); Triglycerides 85 mg/dL (<150); Unsaturated Iron Binding 347 ug/dL
[2024-11-20 14:36] LABS: Ferritin 9 ng/mL (10-250); Insulin 20 uU/mL (2-29); TSH reflex Free T4 0.81 uIU/mL (0.32-4.0); Thyroid Stimulating Hormone 0.81 uIU/mL (0.32-4.0); Vitamin D 25-OH Total 12.4 ng/mL (>30)
[2024-11-24 09:24] LABS: Zinc 63 mcg/dL (60-130)
[2024-11-25 16:03] LABS: Vitamin A 17 mcg/dL (38-98)
[2024-11-28 16:23] LABS: Vitamin B1 7 nmol/L (8-30)
== END 2024-11-20 08:03 | disposition home or self-care (01) ==
LOC: HO.XRAY 08:02
PROVIDERS: Absent Provider Surgery; PCP Internal Medicine; Visit Provider Internal Medicine
DX: E66.01 Morbid (severe) obesity due to excess calories (principal); Z68.43 Body mass index [BMI] 50.0-59.9, adult
CPT/HCPCS: 36415; 71046; 80053; 80061; 82306; 82607; 82728; 82746; 83036; 83525; 83540; 84425; 84443; 84590; 84630; 85025; 86140; 93005

== ENCOUNTER → 2024-11-20 08:11 | Outpatient (BNV) | payer OTHER, SELFPAY | PROVIDERS: Absent Provider Surgery; PCP Internal Medicine; Visit Provider Internal Medicine Cardiovascular Disease | DX: E66.01 Morbid (severe) obesity due to excess calories (principal) | CPT/HCPCS: 93010 ==

== ENCOUNTER → 2024-11-20 08:32 | Outpatient (BNV) | payer OTHER, SELFPAY | PROVIDERS: Absent Provider Surgery; PCP Internal Medicine; Visit Provider Radiology Diagnostic Radiology | DX: E66.01 Morbid (severe) obesity due to excess calories (principal) | CPT/HCPCS: 71046 ==

== ENCOUNTER 2024-12-04 08:10 | Outpatient (AMB) | payer OTHER, SELFPAY ==
--- NOTE | 2024-12-04 08:00 | A.OFFWM_ITS ---
Intake Intake Visit Reasons: VIDEO BH Intake Allergies codeine Allergy (Verified 11/11/24 10:31) Hives [facility] Medical History (Updated 11/26/24 @ 17:05 by Erasto Quintanilla MD) Morbid obesity Surgical History History of tendonitis History of ovarian cyst Family History Mother Diabetes Hypertension Father No problems noted. Paternal Grandmother Breast cancer Social History (Updated 10/12/24 @ 09:10 by Meme Huffman MD) Housing: Apartment Alcohol intake: current Alcohol intake frequency: a few times a month Alcohol type: hard liquor Patient Tobacco Use Status: Never used Tobacco e-Cigarette/Vaping Use: Never Used Second Hand Smoke Exposure: No service: No Current occupational status: employed Current occupational exposures/hazards: No Cognitive needs: No Hearing needs: No Vision needs: Yes Behavioral Health Assessment Weight Management Therapy Therapy Notes Details PT is a 39 years old female who presents for a initial visit to start BH assessment as part of surgical weight loss program. PT initially refereed by PCP, Dr Corey. Presenting Concerns Referral Source [facility]-Provider. Reason for referral Completion of behavioral health assessment as part of process for weight-loss surgery. Precipitating Event Obesity. Living Situation Current Living Situation Rent At risk of losing current housing? No Satisfied with current living situation? Yes Comments PT lives with her . Food/Weight/Diet History/Relationship with dieting [facility]- in [place], [place] 5 years ago. Social History Family history and relationship PT is 16 years ago. PT is the youngest of 6 siblings, She was raised by her mom and step-dad, who . Mom lives in [place], and her father lives in [place]. PT reports she has good family dinamics. Parental/Familial contractor general engineering obligations None. Developmental history and status None reported. Currently [facility]. Social support and sister. Community support None. Yazidi/Spirituality Christian but doesn't go to nondenominational. Cultural/Ethnic information . Born in [place], been in [place] since age 1. Legal Involvement and History Current or historical involvement with the legal system? None reported. Education Highest grade completed HS Certificate in business. Preferred learning style Learn by doing Currently enrolled in educational program? No Interested in further educational program? No Educational Interests/Skills Good at cooking. 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 ) Wants help to find employment? No Meaningful activities Read, outdoor walks, family time. Financial Situation Describe current financial situation Comfortable and Occasional struggle Financial assistance? None Service Service? No Mental Health and Addiction Treatment Current/Past substance abuse? No Comments Alcohol: 1x week- Fridays usually 5-6 shots of Tequila, sometimes mix them with a juice or blended with frozen food. Cigarettes/Tobacco: None Vaping: None Cannabis/Edibles: None. Used 5 years ago for a short period of time. Current/Past addictive behavior concerns? No Psychiatric history PT reports she has never been in counseling, and also denies ever being in crisis or inpatient for mental health. There is no history and/or current concern about SI/SA and self-harm or other harm. PT reports her PCP told her she has mild depression and anxiety due to scored at scales given at their recent visit. When discussed with PT so far she doesn't meet criteria for full VAN or MDD-recurrent, however she is under stress and at times is not aware of healthy stress-management or coping skills. Questionnaires PHQ-9 Over the last 2 weeks, how often have you been bothered by any of the following problems? 1. Little interest or pleasure in doing things: several days 2. Feeling down, depressed, or hopeless: not at all 3. Trouble falling or staying asleep, or sleeping too much: more than half the days 4. Feeling tired or having little energy: several days 5. Poor appetite or overeating: several days 6. Feeling bad about yourself - or that you are a failure or have let yourself or your family down: not at all 7. Trouble concentrating on things, such as reading the newspaper or watching television: not at all 8. Moving or speaking so slowly that other people could have noticed. Or the opposite - being so fidgety or restless that you have been moving around a lot more than usual: not at all 9. Thoughts that you would be better off or of hurting yourself in some way: not at all Total score: 5 Depression Screening Interpretation: Positive (From new PT pack completed on 11/05/2024-) Depression Screening Done: Yes Source: Developed by Drs. Robbi Parmar, Radha Dey, Parth Baltazar and colleagues, with an educational polo from [employer]. Assessment & Plan Assessment & Plan (1) Adjustment disorder: Code(s): F43.20 - Adjustment disorder, unspecified (2) Pre-bariatric surgery psychological evaluation: Code(s): Z71.89 - Other specified counseling Plan The patient has not yet been cleared as the assessment is incomplete. She is scheduled to return on December 21, 2024, to continue the evaluation. During the next visit, a new PHQ-9 will be administered, and the BES will be reviewed. Telehealth Telehealth [facility]health [facility]: [facility] Location of provider rendering services: other Location of patient: address on file Patient Identification confirmed using: Name, : Yes Telehealth method: video Patient verbally consented to treatment: Yes Patient verbally consented to billing insurance company: Yes Patient informed of any privacy concerns related to visit: Yes Minutes spent on Phone/Video with Pt.: 60 Coding Level of Care Code New Pt Tele Psy Diag Eval ([id number]) Patient Type New Diagnoses Adjustment disorder F43.20 Pre-bariatric surgery psychological evaluation Z71.89 Time Spent (min) 60
--- OUTSIDE RECORDS SUMMARY | 2024-12-04 08:12 | XMS_ITS | Data Portability ---
Author Organization [place] [facility] [place] Medicaid MRI Address [address] [place] [address] Care Team Providers Care Product Owner Name Role Phone PREET WATSON Primary Care Provider [phone] PREET WATSON Referring Provider [phone] AAMIR LARA Sports Coordinator HAIDER CLARK Sports Coordinator Unavailable Referring Provider Unavailable Assessment Encounter Date [...] contrast - work related injury 2017 018 [facility], [address] [place] [address], [address], 8 14:37:43 Medication Orders ibuprofen 800 mg tablet 2017 018 INTERFACE [id number], [address] [place], [address], 8 10:52:34 methylpred nisolone acetate 40 mg/mL suspension for injection 2017 018 [email or web address] Not available 08:26:45 Patient TargetsNo targets recorded. Patient Instructions Encounter Date Encounter Id Patient Instructions Last Modified By Organization Details Last Modified Time 03/25/2017 [id number] patient was instructed that we would not [...] contr ast No observ ation record ed. [facility] (Medical Records) [address] [place] [address], [address], 12/27/2017 16:53:39 Result Notes None recorded. Problems No Known Problems Procedures Surgical History Date Name Laterality Status Provider Name and Address Organization Details Recorded Time 8 Shoulder Subacromial - LEFT - CS Injection completed MAYLIN Fitzgerald [address] [place] [address], [address], [facility] 02/07/2018 08:31:10 7 Eric Suture Removal completed Nelson Reyes MD [address] [place], [address], [facility] 12/31/2016 09:18:08 7 Eric Suture Removal completed Nelson Reyes MD [address] [place], [address], [facility] 12/24/2016 10:31:04 Imaging Results None recorded. Procedure Notes None recorded. Medical Equipment None [...] Updated DateTime 12/17/2017 154.94 cm 46.5 kg/m2 898057.72 g Meme Kingston [facility] 12/17/2017 13:24:32 Date Recorded Body height Body mass index (BMI) Body weight Provider Name and Address Organization Details Last Updated DateTime 12/27/2017 154.94 cm 46.5 kg/m2 790832.72 g Melissa Up [facility] 12/27/2017 09:06:42 Date Recorded Body height Body mass index (BMI) Body weight Provider Name and Address Organization Details Last Updated DateTime 02/07/2018 154.94 cm 46.5 kg/m2 199340.72 g Meme Bloodz [facility] 02/07/2018 08:10:22 Date Recorded Body height Body mass index (BMI) Body weight Provider Name and Address Organization Details Last Updated DateTime 03/07/2018 154.94 cm 46.5 kg/m2 871874.72 g Patricia Nealdo [facility] 03/07/2018 10:41:58 Date Recorded Body height Body mass index (BMI) Body weight Provider Name and Address Organization Details Last Updated DateTime 03/25/2017 154.94 cm 46.5 kg/m2 572047.72 g Meme Khalilnez [facility] 03/25/2017 09:24:55 Social History Question Answer Notes LastModified by [employer] Details LastModified Time Tobacco Smoking Status Former Smoker Bridgette Alirio salcedo [facility] 08/15/2016 13:03:04 Auto Related Injury? No [...] Functional Status Question Answer Note LastModified by [employer] Details LastModified Time What is your level [...] Disease/Problems N Breathing Problems N Heart Attack ([place]) N Sexually Transmitted Diseases N Bleeding Disorder/Tendencies or Anemia Y Stomach Ulcers N Diabetes N Skin Problems/Rash/Boils N Depression/Psychiatric Problems N Arthritis Y Tuberculosis N Cancer N Eye Problems N Stroke N Leg or Foot Ulcers N HIV/AIDS [...] SNOMED-CT Code Diagnosis ICD10 Code Diagnosis Note [id number] Belem Graham OFFICE-N. [facility] ot a [address] [address] 08/15/2016 12:36:37 08/15/2016 14:14:17 Pain of joint of wrist 056650060 M25.539 Radial sty loid tenosynovitis 35678524 M65.4 [id number] Nelson Reyes MD OFFICE-N. [facility] a [address] [address] 09/12/2016 10:59:39 09/12/2016 11:51:06 Pain of joint of hand 660333724 M79.643 Radial sty loid tenosynovitis 58858914 M65.4 [id number] Belem Graham OFFICE-N. [facility] a [address] [address] 10/08/2016 10:37:56 10/08/2016 12:03:35 Radial styloid tenosynovitis 57043326 M65.4 Left [id number] Belem Graham OFFICE-N. [facility] a [address] [address] 12/17/2016 12:14:25 12/17/2016 13:15:47 Radial styloid tenosynovitis 13199212 M65.4 Left [id number] Nelson Reyes MD OFFICE-N. [facility] a [address] [address] 12/24/2016 09:56:04 12/24/2016 10:32:15 Radial styloid tenosynovitis 69050572 M65.4 [id number] Nelson Reyes MD [facility] [address] [place] [address] 12/31/2016 08:59:51 12/31/2016 09:31:20 Radial styloid tenosynovitis 97103022 M65.4 [id number] Nelson Reyes MD OFFICE - [facility] [address] [place] [address] 01/28/2017 08:41:23 01/28/2017 09:54:57 Radial styloid tenosynovitis 61575763 M65.4 [id number] Nelson Reyes MD OFFICE - [facility] [address] [place] [address] 02/25/2017 08:49:55 02/25/2017 09:14:21 Radial styloid tenosynovitis 20358063 M65.4 [id number] Belem Graham OFFICE - [facility] [address] [place] [address] 03/25/2017 09:16:00 03/25/2017 10:03:29 Radial styloid tenosynovitis 76074552 M65.4 [id number] Juan Pablo Holt MD OFFICE - [facility] [address] [place] [address] 12/17/2017 13:01:39 12/17/2017 14:12:00 Sprain of shoulder rotator cuff 9786867953 04 S43.422A [id number] Juan Pablo Holt MD OFFICE - [facility] [address] [place] [address] 12/27/2017 08:55:28 12/27/2017 09:13:51 Sprain of shoulder rotator cuff 5283502154 04 S43.422A [id number] MAYLIN Fitzgerald OFFICE - [facility] [address] [place] [address] 02/07/2018 08:00:13 02/07/2018 08:31:04 Sprain of shoulder rotator cuff 9448818515 04 S43.422A [id number] MAYLIN Fitzgerald OFFICE - [facility] [address] [place] [address] 03/07/2018 10:17:29 03/07/2018 10:56:27 Sprain of shoulder rotator cuff 1226210841 04 S43.422A Health Concerns Section Related Observation LastModified by Organization Detai ls LastModified Time None Recorded Concern Status LastModified by Organization Details LastModified Time None Recorded Advance Directives Directive None Recorded Payers Insurance Date Sequence Insurance Name Policy Number Policy Gomez Covered Member ID Gomez Member ID Guarantor Name 01/28/2017 1 [employer] Yas Worthington [id number] Yas Worthington 10/08/2016 1 [place] [employer] Yas Worthington [id number] Yas Worthington 12/18/2017 [employer] Yas Worthington 12/19/2017 [employer] Yas Worthington 03/04/2018 1 [facility] (O) [id number] Yas Worthington [id number] Yas Worthington Notes Date Note Type Note [...] she denies numbness and tingling. Belem Graham [address] [place], [address], [facility] - [facility] 03/25/2017 09:45:15 12/17/2017 text/html This [...] She went to the emergency room at [facility] where x-rays of her shoulder were obtained [...] for plantar fasciitis. Juan Pablo Holt MD [address] [place] [address], [phone], [facility] 12/17/2017 13:56:47 12/27/2017 text/html Judy is seen in follow-up. MRI scan was completed this morning at [facility]. Review of the study shows degenerative cyst in the posterior aspect of the humeral head with some very small sub-bursal fluid collection. No evidence of rotator cuff tear or significant labral pathology. Biceps tendon appears to be intact as well. She is currently working full duty and having some mild discomfort at work Juan Pablo Holt MD [address] [place] [address], [phone], [facility] 12/27/2017 09:14:21 02/07/2018 text/html Judy is seen in follow-up. She is currently working full duty and has continued to have the same symptoms. She finished physical therapy after her last visit with us. MAYLIN Fitzgerald [address] [place] [address], [phone], [facility] 02/07/2018 08:33:10 03/07/2018 text/html Yas is follo wing up here on her sprain of rotator cuff. She did not have great relief with the injection last time. She continues her home exercises and still has persistent pain. She has been working full-time. MAYLIN Fitzgerald [address] [place] [address], [phone], [facility] 03/07/2018 11:14:50 OBGyn Episode No OBEpisode recorded.
== END 2024-12-04 09:04 | disposition home or self-care (01) ==
LOC: HO.HBST 08:10
PROVIDERS: PCP Internal Medicine; Visit Provider Counselor Mental Health
DX: F43.20 Adjustment disorder, unspecified (principal); Z71.89 Other specified counseling
CPT/HCPCS: 90791

== ENCOUNTER → 2024-12-04 08:10 | Outpatient (BNVA) | payer OTHER, SELFPAY | PROVIDERS: PCP Internal Medicine; Visit Provider Counselor Mental Health ==

== ENCOUNTER 2024-12-12 08:26 | Outpatient (REF) | payer OTHER, SELFPAY | END 2024-12-12 08:27 | disposition home or self-care (01) | LOC: HO.MAMMO 08:26 | PROVIDERS: PCP Internal Medicine; Visit Provider Internal Medicine | DX: Z12.31 Encounter for screening mammogram for malignant neoplasm of breast (principal) | CPT/HCPCS: 77063; 77067 ==

== ENCOUNTER → 2024-12-12 08:45 | Outpatient (BNV) | payer OTHER, SELFPAY | PROVIDERS: PCP Internal Medicine; Visit Provider Internal Medicine | DX: Z12.31 Encounter for screening mammogram for malignant neoplasm of breast (principal) | CPT/HCPCS: 77063; 77067 ==

== ENCOUNTER 2024-12-16 06:09 | Day surgery (SDC) | payer OTHER, SELFPAY ==
--- OUTSIDE RECORDS SUMMARY | 2024-12-08 14:51 | XMS_ITS | Data Portability ---
Author Organization [place] [facility] [place] MRI Address [address] [place] [address] Care Team Providers Care Boiler Out Name Role Phone PREET WATSON Primary Care Provider PREET WATSON Referring Provider [phone] AAMIR LARA Marketing Automation Analyst HAIDER CLARK Marketing Automation Analyst Unavailable Referring Provider Unavailable Assessment Encounter Date [...] contrast - work related injury 2017 018 [facility], [address] [place] [address], [address], 8 14:37:43 Medication Orders ibuprofen 800 mg tablet 2017 018 INTERFACE [id number], [address] [place], [address], 8 10:52:34 methylpred nisolone acetate 40 mg/mL suspension for injection 2017 018 [email or web address] Not available 08:26:45 Patient TargetsNo targets recorded. Patient Instructions Encounter Date Encounter Id Patient Instructions Last Modified By Organization Details Last Modified Time 03/25/2017 [id number] patient was instructed that we would not [...] contr ast No observ ation record ed. [facility] (Medical Records) [address] [place] [address], [address], 12/27/2017 16:53:39 Result Notes None recorded. Problems No Known Problems Procedures Surgical History Date Name Laterality Status Provider Name and Address Organization Details Recorded Time 8 Shoulder Subacromial - LEFT - CS Injection completed MAYLIN Fitzgerald [address] [place] [address], [phone], [facility] 02/07/2018 08:31:10 7 Eric Suture Removal completed Nelson Reyes MD [address] [place], [address], [facility] 12/31/2016 09:18:08 7 Eric Suture Removal completed Nelson Reyes MD [address] [place], [address], [facility] 12/24/2016 10:31:04 Imaging Results None [...] Updated DateTime 12/17/2017 154.94 cm 46.5 kg/m2 743478.72 g Meme Kingston [facility] 12/17/2017 13:24:32 Date Recorded Body height Body mass index (BMI) Body weight Provider Name and Address Organization Details Last Updated DateTime 12/27/2017 154.94 cm 46.5 kg/m2 913225.72 g Melissa Up [facility] 12/27/2017 09:06:42 Date Recorded Body height Body mass index (BMI) Body weight Provider Name and Address Organization Details Last Updated DateTime 02/07/2018 154.94 cm 46.5 kg/m2 555937.72 g Meme Bloodz [facility] 02/07/2018 08:10:22 Date Recorded Body height Body mass index (BMI) Body weight Provider Name and Address Organization Details Last Updated DateTime 03/07/2018 154.94 cm 46.5 kg/m2 352492.72 g Patricia Nealdo [facility] 03/07/2018 10:41:58 Date Recorded Body height Body mass index (BMI) Body weight Provider Name and Address Organization Details Last Updated DateTime 03/25/2017 154.94 cm 46.5 kg/m2 169279.72 g Meme Khalilnez [facility] 03/25/2017 09:24:55 Social History Question Answer Notes LastModified by [employer] Details LastModified Time Tobacco Smoking Status Former Smoker Bridgette Alirio salcedo [facility] 08/15/2016 13:03:04 Auto Related [...] Functional Status Question Answer Note LastModified by [employer] Details LastModified Time What is your level of alcohol consumption? Occasional Information not available 08/15/2016 Are you currently employed? Yes Information not available 08/15/2016 Mental Status None recorded. Family History Relationship Description Onset Age of this Age Resolved Age Notes LastModified by Organization Details LastModified Time Mother Diabetes mellitus Not available 2016 13:02:55 Medical History Condition Response Hereditary Defects N Heart Problems N Coronary Artery Disease N Gout N Tremors/Seizures/Dizziness/Epilepsy N Excessive Thirst/Fatigue N Lung Disease N Blood Clots N Fever, Chills, Headaches N Pacemaker N Heart Disease/Problems N Breathing Problems N Heart Attack ([place]) N Sexually Transmitted Diseases N Bleeding Disorder/Tendencies [...] SNOMED-CT Code Diagnosis ICD10 Code Diagnosis Note [id number] Belem Graham OFFICE-N. [facility] ot a [address] [address] 08/15/2016 12:36:37 08/15/2016 14:14:17 Pain of joint of wrist 024831636 M25.539 Radial sty loid tenosynovitis 01548539 M65.4 [id number] Nelson Reyes MD OFFICE-N. [facility] a [address] [address] 09/12/2016 10:59:39 09/12/2016 11:51:06 Pain of joint of hand 769277996 M79.643 Radial sty loid tenosynovitis 38127463 M65.4 [id number] Belem Graham OFFICE-N. [facility] a [address] [address] 10/08/2016 10:37:56 10/08/2016 12:03:35 Radial styloid tenosynovitis 25736020 M65.4 Left [id number] Belem Graham OFFICE-N. [facility] a [address] [address] 12/17/2016 12:14:25 12/17/2016 13:15:47 Radial styloid tenosynovitis 10681775 M65.4 Left [id number] Nelson Reyes MD OFFICE-N. [facility] ot a [address] [address] 12/24/2016 09:56:04 12/24/2016 10:32:15 Radial styloid tenosynovitis 71405322 M65.4 [id number] Nelson Reyes [facility] [address] [place] [address] 12/31/2016 08:59:51 12/31/2016 09:31:20 Radial styloid tenosynovitis 42961023 M65.4 [id number] Nelson Reyes MD OFFICE - [facility] [address] [place] [address] 01/28/2017 08:41:23 01/28/2017 09:54:57 Radial styloid tenosynovitis 95758316 M65.4 [id number] Nelson Reyes MD OFFICE - [facility] [address] [place] [address] 02/25/2017 08:49:55 02/25/2017 09:14:21 Radial styloid tenosynovitis 95447397 M65.4 [id number] Belme Graham OFFICE - [facility] [address] [place] [address] 03/25/2017 09:16:00 03/25/2017 10:03:29 Radial styloid tenosynovitis 67126351 M65.4 [id number] Juan Pablo Holt MD OFFICE - [facility] [address] [place] [address] 12/17/2017 13:01:39 12/17/2017 14:12:00 Sprain of shoulder rotator cuff 7648070204 04 S43.422A [id number] Juan Pablo Holt MD OFFICE - [facility] [address] [place] [address] 12/27/2017 08:55:28 12/27/2017 09:13:51 Sprain of shoulder rotator cuff 7860952964 04 S43.422A [id number] MAYLIN Fitzgerald OFFICE - [facility] [address] [place] [address] 02/07/2018 08:00:13 02/07/2018 08:31:04 Sprain of shoulder rotator cuff 0504709345 04 S43.422A [id number] MAYLIN Fitzgerald OFFICE - [facility] [address] [place] [address] 03/07/2018 10:17:29 03/07/2018 10:56:27 Sprain of shoulder rotator cuff 5032047209 04 S43.422A Health Concerns Section Related Observation LastModified by Organization Detai ls LastModified Time None Recorded Concern Status LastModified by Organization Details LastModified Time None Recorded Advance Directives Directive None Recorded Payers Insurance Date Sequence Insurance Name Policy Number Policy Gomez Covered Member ID Gomez Member ID Guarantor Name 01/28/2017 1 [employer] Yas Worthington [id number] Yas Worthington 10/08/2016 1 [place] [id number] Yas Worthington [id number] Yas Worthington 12/18/2017 [employer] Yas Worthington 12/19/2017 [employer] Yas Worthington 03/04/2018 1 [facility] (O) [id number] Yas Worthington [id number] Yas Worthington Notes Date Note Type Note [...] denies numbness and tingling. Belem Graham [address] [place], [address], [facility] - [facility] 03/25/2017 09:45:15 12/17/2017 text/html This [...] She went to the emergency room at [facility] where x-rays of her shoulder were [...] for plantar fasciitis. Juan Pablo Holt MD [address] [place] [address], [phone], [facility] 12/17/2017 13:56:47 12/27/2017 text/html Judy is seen in follow-up. MRI scan was completed this morning at [facility]. Review of the study shows degenerative cyst in the posterior aspect of the humeral head with some very small sub-bursal fluid collection. No evidence of rotator cuff tear or significant labral pathology. Biceps tendon appears to be intact as well. She is currently working full duty and having some mild discomfort at work Juan Pablo Holt MD [address] [place] [address], [address], [facility] 12/27/2017 09:14:21 02/07/2018 text/html Judy is seen in follow-up. She is currently working full duty and has continued to have the same symptoms. She finished physical therapy after her last visit with us. MAYLIN Fitzgerald [address] [place] [address], [address], [facility] 02/07/2018 08:33:10 03/07/2018 text/html Yas is follo wing up here on her sprain of rotator cuff. She did not have great relief with the injection last time. She continues her home exercises and still has persistent pain. She has been working full-time. MAYLIN Fitzgerald [address] [place] [address], [phone], [facility] 03/07/2018 11:14:50 OBGyn Episode No OBEpisode recorded.
[2024-12-14 10:15] VITALS: BMI 50.7
--- NOTE | 2024-12-14 12:28 | HO.ANESPROP2 ---
Documented by User: Yamini Arteaga NP 12/14/24 12:29 HPI - Anesthesia Eval Consult details Narrative: 39yo F for Upper Endoscopy PMFSH Active Problems Active Problems: All Active Problems Vitamin B1 deficiency (Acute) Vitamin B12 deficiency (Acute) Vitamin D deficiency (Acute) Anemia (Acute) Vitamin A deficiency (Acute) Morbid obesity (Acute) Skin lesion (Acute) Dyspnea (Acute) Menstrual irregularity (Acute) VAN (generalized anxiety disorder) (Acute) BMI 50.0-59.9, adult (Acute) Mild recurrent major depression (Acute) Past Medical History Medical History Anemia Morbid obesity Family History Family History Mother Diabetes Hypertension Father No problems noted. Paternal Grandmother Breast cancer Surgical History Surgical History History of tendonitis History of ovarian cyst Social History Social History Housing: Apartment Alcohol intake: current Alcohol intake frequency: a few times a month Alcohol type: hard liquor Patient Tobacco Use Status: Never used Tobacco e-Cigarette/Vaping Use: Never Used Second Hand Smoke Exposure: No Use of substances other than those prescribed or required for medical reasons: No Are you DNR?: No Advance Directives: No Advance Directives Information Provided: Yes : No Poor oral hygiene: No service: No Current occupational status: employed Current occupational exposures/hazards: No Cognitive needs: No Hearing needs: No Vision needs: Yes Meds Allergies Allergy/AdvReac Type Severity Reaction Status Date / Time codeine Allergy Hives Verified 11/11/24 10:31 Exam Height,Weight and Vital Signs: Height 5 ft 3 in Weight 129.727 kg Assessment and Plan Assessment Anesthesia Assessment: Chart Reviewed Documented by User: Sophia Sylvester MD 12/16/24 07:41 PMFSH Active Problems Active Problems: All Active Problems Vitamin B1 deficiency (Acute) Vitamin B12 deficiency (Acute) Vitamin D deficiency (Acute) Anemia (Acute) Vitamin A deficiency (Acute) Morbid obesity (Acute) Skin lesion (Acute) Dyspnea (Acute) Menstrual irregularity (Acute) VAN (generalized anxiety disorder) (Acute) BMI 50.0-59.9, adult (Acute) Mild recurrent major depression (Acute) Past Medical History Medical History Anemia Morbid obesity Family History Family History Mother Diabetes Hypertension Father No problems noted. Paternal Grandmother Breast cancer Surgical History Surgical History History of tendonitis History of ovarian cyst History of Problems with Anesthesia: No Social History Social History Housing: Apartment Alcohol intake: current Alcohol intake frequency: a few times a month Alcohol type: hard liquor Patient Tobacco Use Status: Never used Tobacco e-Cigarette/Vaping Use: Never Used Second Hand Smoke Exposure: No Use of substances other than those prescribed or required for medical reasons: No Are you DNR?: No Advance Directives: No Advance Directives Information Provided: Yes : No Poor oral hygiene: No service: No Current occupational status: employed Current occupational exposures/hazards: No Cognitive needs: No Hearing needs: No Vision needs: Yes Meds Allergies Allergy/AdvReac Type Severity Reaction Status Date / Time codeine Allergy Hives Verified 11/11/24 10:31 Exam Airway Mallampati Class: III TM Dist: >3cm Neck ROM: Full Loose/Missing/Broken Teeth: No Heart: RRR Lungs: CTA Assessment and Plan Assessment Anesthesia Assessment: Anesthesia Plan Discussed Final Anesthetic Review History of Problems with Anesthesia: No NPO: Yes ASA Class: III Final Preanesthetic Review: Meds/Allgs Chart Reviewed, Consent Obtained/Reviewed and Anes Risks/Benef Reviewed Patient Risk: Intermediate Procedure Risk: Intermediate Anesthetic Plan Anesthetic Plan: MAC: Disposition: Standard PACU
[2024-12-16] VITALS (8 sets, daily range): BP systolic 97–156; BP diastolic 54–96; PULSE 80–115; RESP 12–20; TEMP 36.1; O2SAT 97–99; BMI 49.2
[2024-12-16 07:20] LABS: UPreg QC Valid YES; Urine Pregnancy NEGATIVE (NEGATIVE)
[2024-12-16] MEDS: Lactated Ringers 1,000 ML 80 ML IVCONT (07:31)
--- NOTE | 2024-12-16 08:03 | MHC.SHP ---
Pre-Procedural Eval Section A - 24 Hr Update-Section A only Date of Service: 12/16/24 The patient is an INPATIENT: No The patient has been examined within 24 hours of the surgical procedure. The History & Physical has been completed within 30 days and I have reviewed it.: Yes Section B - Complete if H&P > 30 days Chief Complaint: Morbid (severe) obesity due to excess calories Details of Present Illness: Severe anemia Relevant Family History (Specify if Yes): No Relevant Social History: None Present Medications: None Medical History: No relevant PMH History of Previous Operations: No relevant previous surgery Allergies: Allergies Allergy/AdvReac Type Severity Reaction Status Date / Time codeine Allergy Hives Verified 11/11/24 10:31 Review of Systems Sugical H&P ROS: Negative: Constitution, Cardiovascular, Respiratory, Neurological, Psychiatric, Hem-Onc, Allergic/Immunologic, Gastrointestinal, Genitourinary, Musculoskeletal, Integumentary, Endocrine and Eyes/Ears/Nose/Throat Exam Surgical H&P Exam: Normal: HEENT, Normal: Heart, Normal: Lungs, Normal: Extremities, Normal: Abdomen, Normal: Skin and Normal: Neurological Plan Diagnosis/Plan: Unchanged (EGD to assess etiology of anemia. Risks of bleeding and perforation were discussed with the patient and he is in agreement with the plan.) I have reviewed the history and physical and performed a pertinent physical examination on my patient. No changes have occurred unless specified. Time Spent With Patient Time: Total time managing care of this patient today ____ minutes.
--- NOTE | 2024-12-16 08:05 | P.BOP_ITS ---
Brief Operative Note Date of Service: 12/16/24 Pre-op diagnosis: Anemia Post-op diagnosis: same Procedure: PROCEDURE DATE: 12/16/2024 PREOPERATIVE DIAGNOSIS: Anemia POSTOPERATIVE DIAGNOSIS: ?Same as above. 1) moderate fixed hiatal hernia PROCEDURE: [id number] with biopsies Surgeon: ?Bruce Quintanilla M.D.. Ph.D. Therapeutic Massage Technician: None ? Anesthesia: IV sedation Estimated blood loss: ?Minimal FINDINGS AND PROCEDURE: ? OPERATIVE INDICATIONS: ?The patient is a 68 year old female known to me who is interested in bariatric surgery. The patient has severe anemia. Based on this information I recommended an upper endoscopy to evaluate the patient's symptoms. Risks and complications of the surgery were discussed with the patient in advance particularly the possibility of perforation or bleeding that may require surgical intervention. The patient understood the risks and was in agreement with the plan. ? PROCEDURE: After informed consent was obtained by the patient, the patient was ?transferred to the Operating Room and was placed in the supine position.? After successful induction of IV sedation, a mouth block was inserted and the patient was placed in the left lateral decubitus position. An upper endoscopy was performed next, the oropharynx and esophagus appeared within the normal limits. There was a fixed 4cm diaphragmatic hernia. The z-line was smooth. Two biopsies were obtained from the distal esophagus 2-3 cm proximal to the GE junction and two additional biopsies from the GE junction. The stomach was entered and it appeared to be of normal size. There was no gastritis. There was no stricture or ulcer. A biopsy was obtained from the gastric fundus and the antrum. No significant bleeding was noted from any of the biopsy sites. Retroflexion of the scope confirmed a moderate diaphragmatic hernia. The scope was then advanced into the duodenum which appeared to be normal as well. At that point the duodenum ?and the stomach were decompressed and the scope was withdrawn from the patient's mouth. The patient extubated and was transferred in stable condition to the Recovery Room for further care. I was present and performed all steps of the procedure. There were no residents to assist with this case. Bruce Quintanilla M.D., Ph.D. Surgeon: Erasto Quintanilla MD Anesthesia: MAC Was an Therapeutic Massage Technician used for this Procedure?: No Estimated blood loss (mL): 0 IV fluids (mL): 400 Urine output (mL): 0 (No Barros to record output) Pathology: other (1) antrum x1, 2) fundus x1, 3) GE junction x2, 4) distal esophagus x2) Condition: stable Disposition: PACU
--- NOTE | 2024-12-16 08:55 | PC.NURSE ---
PATIENT HAD AN UPPER ENDOSCOPY FROM DR. COBIAN. PATIENT ARRIVED FROM PACU AWAKE, A/O X'S 3 WITH NO CURRENLT COMPLAINTS. PATIENT HAS A #22 IN LEFT HAND PT IS GOING TO RECEIVE AN IRON INFUSION FROM THE INFUSION CENTER. PATIENT WITH FAMILY MEMBER AT SIDE. PATIENT GIVEN WRITTEN/VERBAL DISCHARGE INSTRUCTIONS FROM SURGICAL AREA. PATIENT WILL NOT BE DRIVING HOME. PATIENT DISCHARGED FROM SURGICAL AREA
[2024-12-16] MEDS: Iron Sucrose Complex 400 MG in 0.9 % Sodium Chloride 250 ML 108 MG IV (09:15)
== END 2024-12-16 08:59 | disposition home or self-care (01) ==
PROVIDERS: Nurse Practitioner; PCP Internal Medicine; Visit Provider Surgery
PROC: 0DJ08ZZ Inspection of Upper Intestinal Tract, Via Natural or Artificial Opening Endoscopic (ICD-10-PCS; CPT 43235; principal; 2024-12-16 07:30)
DX: D64.9 Anemia, unspecified (principal); E66.01 Morbid (severe) obesity due to excess calories; Z68.43 Body mass index [BMI] 50.0-59.9, adult; K31.A13 Gastric intestinal metaplasia without dysplasia, involving the fundus; K44.9 Diaphragmatic hernia without obstruction or gangrene; I10 Essential (primary) hypertension; Z79.85 Long-term (current) use of injectable non-insulin antidiabetic drugs; Z79.899 Other long term (current) drug therapy; Z88.5 Allergy status to narcotic agent
CPT/HCPCS: 43239; 81025; 88305; 88313; 88341; 88342; J1756; J2003; J2704

== ENCOUNTER → 2024-12-16 06:09 | Outpatient (BNV) | payer OTHER, SELFPAY | PROVIDERS: PCP Internal Medicine; Visit Provider Surgery | DX: K44.0 Diaphragmatic hernia with obstruction, without gangrene (principal) | CPT/HCPCS: 43239 ==

== ENCOUNTER 2024-12-21 09:44 | Outpatient (AMB) | payer OTHER, SELFPAY ==
--- NOTE | 2024-12-21 09:30 | MHC.WMTHER ---
Intake Intake Visit Reasons: VIDEO BH Intake Part 2 Allergies codeine Allergy (Verified 11/11/24 10:31) Hives [facility] Medical History Anemia Morbid obesity Surgical History History of tendonitis History of ovarian cyst Family History Mother Diabetes Hypertension Father No problems noted. Paternal Grandmother Breast cancer Social History Housing: Apartment Alcohol intake: current Alcohol intake frequency: a few times a month Alcohol type: hard liquor Patient Tobacco Use Status: Never used Tobacco e-Cigarette/Vaping Use: Never Used Second Hand Smoke Exposure: No service: No Current occupational status: employed Current occupational exposures/hazards: No Cognitive needs: No Hearing needs: No Vision needs: Yes Behavioral Health Assessment Weight Management Therapy Therapy Notes Details The patient is a 39-year-old female presenting for a second visit to continue the behavioral health assessment as part of the surgical weight loss program. She was initially referred by her primary care provider, Dr. Corey. The patient denies any history of mental health treatment, psychiatric hospitalization, or crisis intervention. She also denies any current or past concerns related to suicidal ideation, suicide attempts, self-harm, or harm to others. No history of substance use is reported. There is no indication of emotional or stress-related eating, and her Binge Eating Scale (BES) score reflects a low risk for binge eating behaviors. Her PHQ-9 results indicate no active depressive symptoms. The mental status exam was within normal limits, with no evidence of impaired functioning. At this time, the patient is cleared from a behavioral health standpoint to proceed with the surgical weight loss program. Presenting Concerns Referral Source [facility]-Provider. Reason for referral Completion of behavioral health assessment as part of process for weight-loss surgery. Precipitating Event Obesity. Living Situation Current Living Situation Rent At risk of losing current housing? No Satisfied with current living situation? Yes Comments PT lives with her . Food/Weight/Diet Expectations of change PT started the program on 11/11/2024 at 287 lbs Recent weight from 12/17/2024 was 276 lbs. The Initial Goal is to lose 10% of her weight before surgery, which is about 27lbs. Ultimate weight goal: 260 lbs. before surgery. The patient wants to become a healthier and active person. Also, to eat better and expand her food preferences. PT is implementing the following: Current meal plan: protein shakes during the day and 2 meals a day (lunch @1pm and Dinner @5pm). - She also does 1-2 fruits a day. Exercise plan: Stationary bike and outdoor walks. Scale: yes Communication with provider: . History/Relationship with food PT reports she has been skipping meals since an adult, she tends to have Tanzanian/-style meals. She wa sused to have multiple snacks at day and 2 big meals, was also a heavy soda drinker . However, Pt denies any history or concerns with emotional/stress eating. Example of meals before starting the program: Breakfast: most often skips, 5 am (oatmeal, ham and cheese sandwich) Lunch: 1pm (left over from night before) Dinner: 4-5pm (rice or boiled plantains, beans and pork, or chicken - Ramen soup - pasta) Snacks: 10 am (chips, orange), with lunch she would also have chips, cookies, apple or grapes, and after dinner, a slice of cake. Beverages: Coffee: 1 medium with 4 creams and 8 sugars from [employer] at day. Tea: none, soda: coke 5-6 at day. Juice: Crystal light, ETOH: 1/wk (Tequila, a few shots). History/Relationship with weight PT reports she has always been overweight, in HS she was already over 200Lbs. PT reports her mother had the lap band, and in her family, multiple family members are obese. In the last 10 years, the patient's Lowest weight was 260 lbs, and the highest was 287 lbs History/Relationship with dieting [facility]- in [place], [place] 5 years ago. - Lost 20-30Lbs. Binge Eating Do you frequently eat large amounts of food in short periods of time, not feeling physically hungry? No Do you feel out of control when you eat a large amount of food in a short period of time? No Do you eat large amounts of food rapidly and typically alone? No Night Eating Do you wake up at least once during the night to eat? No If you wake up in the night, do you find that it is necessary to eat something in order to fall back asleep? No Do you have little or no appetite in the morning and feel very hungry in the evening, often overeating between dinner and when you go to bed? Yes Social History Family history and relationship PT is 16 years ago. PT is the youngest of 6 siblings, She was raised by her mom and step-dad, who . Mom lives in [place], and her father lives in [place]. PT reports she has good family dinamics. 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 Developmental history and status None reported. Currently [facility]. Social support and sister. Community support None. Oriental Orthodox/Spirituality Judaism but doesn't go to pentecostalism. Cultural/Ethnic information . Born in [place], been [place] 1. Legal Involvement and History Current or historical involvement with the legal system? None reported. Education Highest grade completed HS Certificate in business. Preferred learning style Learn by doing Currently enrolled in educational program? No Interested in further educational program? No Educational Interests/Skills Good at cooking. 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 ) Wants help to find employment? No Meaningful activities Read, outdoor walks, family time. Financial Situation Describe current financial situation Comfortable and Occasional struggle Financial assistance? None Service Service? No Mental Health and Addiction Treatment Current/Past substance abuse? No Comments Alcohol: 1x week- Fridays usually 5-6 shots of Tequila, sometimes mix them with a juice or blended with frozen food. Cigarettes/Tobacco: None Vaping: None Cannabis/Edibles: None. Used 5 years ago for a short period of time. Current/Past addictive behavior concerns? No Psychiatric history PT reports she has never been in counseling, and also denies ever being in crisis or inpatient for mental health. There is no history and/or current concern about SI/SA and self-harm or other harm. PT reports her PCP told her she has mild depression and anxiety due to scored at scales given at their recent visit. When discussed with PT so far she doesn't meet criteria for full VAN or MDD-recurrent, however she is under stress and at times is not aware of healthy stress-management or coping skills. Medical and Physical Health Summary Additional Medical History not covered in history None aditional. Sexual History concerns None reported Physical exam in the last year? Yes Pain Screening Current pain? No Pain in the last few months? No Medications Is the patient compliant with medications? Yes (Zepbound not approve - not using!) Does the patient have Wilder Guardian in place? Not applicable Does the patient use complimentary health approaches? No Trauma/Abuse History History of trauma? No Questionnaires PHQ-9 Over the last 2 weeks, how often have you been bothered by any of the following problems? 1. Little interest or pleasure in doing things: not at all 2. Feeling down, depressed, or hopeless: not at all 3. Trouble falling or staying asleep, or sleeping too much: several days (Trouble falling or staying asleep) 4. Feeling tired or having little energy: not at all 5. Poor appetite or overeating: not at all 6. Feeling bad about yourself - or that you are a failure or have let yourself or your family down: not at all 7. Trouble concentrating on things, such as reading the newspaper or watching television: not at all 8. Moving or speaking so slowly that other people could have noticed. Or the opposite - being so fidgety or restless that you have been moving around a lot more than usual: not at all 9. Thoughts that you would be better off or of hurting yourself in some way: not at all Total score: 1 Depression Screening Interpretation: Negative Depression Screening Done: Yes 44511 - PHQ-9 Billing: Yes Source: Developed by Drs. Robbi Parmar, Radha Dey, Parth Baltazar and colleagues, with an educational polo from [employer]. Binge Eating Scale Group 1 A. I don't feel self-conscious about my wt. or body size when I'm with others. B. I feel concerned about how I look to others, but it normally does not make me fell disappointed with myself C. I do get self-conscious about my appearance and wt. which makes me feel disappointed in myself. D. I feel very self-conscious about my wt. and frequently I feel intense shame and disgust for myself. I try to avoid social contacts because of my self-consciousness. Response Group 1: C Group 2 A. I don't have any difficulty eating slowly in the proper manner. B. Although I seem to gobble down foods, I don't end up feeling stuffed because of eating to much. C. At times, I tend to eat quickly and then, I feel uncomfortably full afterwards. D. I have the habit of bolting down my food, without really chewing it. When this happens I usually feel uncomfortably stuffed because I've eaten to much. Response Group 2: A Group 3 A. I feel capable to control my eating urges when I want to. B. I feel like I have failed to control my eating more than the average person. C. I feel utterly helpless when it comes to feeling in control of my eating urges. D. Because I feel so helpless about controlling my eating I have become very desperate about trying to get control. Response Group 3: A Group 4 A. I don't have the habit of eating when I'm bored. B. I sometimes eat when I'm bored, but often I'm able to get busy and get my mind off food. C. I have a regular habit of eating when I'm bored, but occasionally, I can use some other activity to get my mind off eating. D. I have a strong habit of eating when I'm bored. Nothing seems to help me breath the habit. Response Group 4: B Group 5 A. I'm usually physically hungry when I eat something. B. Occasionally, I eat something on impulse even though I really am not hungry. C. I have the regular habit of eating foods, that I might not really enjoy, to satisfy a hungry feeling even though physically, I don't need the food. D. Although I'm not physically hungry, I get a hungry feeling in my mouth that only seems to be satisfied when I eat a food, like sandwich, that fills my mouth. Sometimes, when I eat the food to satisfy my mouth hunger, I then spit the food out so I won't gain weight. Response Group 5: D Group 6 A. I don't feel any guilt or self-hate after I overeat. B. After I overeat, occasionally I feel guilt or self-hate. C. Almost all the time I experience strong guilt or self-hate after I overeat. Response Group 6: A Group 7 A. I don't lose total control of my eating when dieting even after periods when I overeat. B. Sometimes when I eat a forbidden food on a diet, I feel like I blew it and eat even more. C. Frequently, I have the habit of saying to myself, I've blown it now, why not go all the way, when I overeat on a diet. When that happens I eat more. D. I have a regular habit of starting a strict diets for myself but I break the diets by going on an eating binge. My life seems to be either a feast or famine. Response Group 7: A Group 8 A. I rarely eat so much food that I feel uncomfortably stuffed afterwards. B. Usually about once a month, I each such a quantity of food, I end up feeling very stuffed. C. I have regular periods during the month when I eat large amounts of food, either at mealtime or at snacks. D. I eat so much food that I regularly feel quite uncomfortable after eating and sometimes a bit nauseous. Response Group 8: A Group 9 A. My level of calorie intake does not go up very high or go down very low on a regular basis. B. Sometimes after I overeat, I will try to reduce my caloric intake to almost nothing to compensate for the excess calories I've eaten. C. I have a regular habit of overeating during the night. It seems that my routine is not to be hungry in the morning but overeat in the evening. D. In my adult years, I have had week-long periods where I practically starve myself. This follows periods when I overeat. It seems I live a life of either feast or famine. Response Group 9: A Group 10 A. I usually am able to stop eating when I want to. I know when enough is enough. B. Every so often, I experience a compulsion to eat which I can't seem to control. C. Frequently, I experience strong urges to eat which I seem unable to control, but at other times I can control my eating urges. D. I feel incapable of controlling urges to eat. I have a fear of not being able to stop eating voluntarily. Response Group 10: A Group 11 A. I don't have any problem stopping eating when I feel full. B. I usually can stop eating when I feel full but occasionally overeat leaving me feeling uncomfortably stuffed. C. I have a problem stopping eating once I start and usually I feel uncomfortably stuffed after I eat a meal. D. Because I have a problem not being able to stop eating when I want, I sometimes have to induce vomiting to relieve my stuffed feeling. Response Group 11: A Group 12 A. I seem to eat just as much when I'm with others, Family social gatherings as when I'm by myself. B. Sometimes, when I'm with other persons, I don't eat as much as I want to eat because I'm self-conscious about my eating. C. Frequently, I eat only a small amount of food when others are present, because I'm very embarrassed about my eating. D. I feel so ashamed about overeating that I pick times to overeat when I know no one will see me. I feel like a closet eater. Response Group 12: B Group 13 A. I eat three meals a day with only an occasional between meal snack. B. I eat 3 meals a day, but I also normally snack between meals. C. When I am snacking heavily, I get in the habit of skipping regular meals. D. There are regular periods when I seem to be continually eating, with no planned meals. Response Group 13: B Group 14 A. I don't think much about trying to control unwanted eating urges. B. At least some of the time, I feel my thoughts are pre-occupied with trying to control my eating urges. C. I feel that frequently I spend much time thinking about how much I ate or about trying not to eat anymore. D. It seems to me that most of my waking hours are pre-occupied by thoughts about eating or not eating. I feel like I'm constantly struggling not to eat. Response Group 14: B Group 15 A. I don't think about food a great deal. B. I have strong craving for food but they last only for brief periods of time. C. I have days when I can't seem to think about anything else but food. D. Most of my days seem to be pre-occupied with thoughts about food. I feel like I live to eat. Response Group 15: A Group 16 A. I usually know whether or not I'm physically hungry. I take the right portion of food to satisfy me. B. Occasionally, I feel uncertain about knowing whether or not I'm physically hungry. A these times it's hard to know how much food I should take to satisfy me. C. Even though I might know how many calories I should eat, I don't have any idea what is a normal amount of food for me. Response Group 16: B Binge Eating Score: 10 Score less than 17 Minimal Risk Score between 18-26 Moderate Risk Score between 27-46 High Risk Assessment & Plan Assessment & Plan (1) Adjustment disorder: Code(s): F43.20 - Adjustment disorder, unspecified (2) Pre-bariatric surgery psychological evaluation: Code(s): Z71.89 - Other specified counseling Plan The patient has been cleared from a behavioral health standpoint and may be submitted for surgical approval when ready. She will follow up in one month to receive support focused on habit formation and lifestyle changes to enhance her readiness for surgery and promote long-term success. A post-operative behavioral health follow-up will also be scheduled. Next arnaldo: 1 month - 01/18/2025 @9am /video Telehealth Telehealth Telehealth Platform: [facility] Location of provider rendering services: practice address Location of patient: other Patient Identification confirmed using: Name, : Yes Telehealth method: video Patient verbally consented to treatment: Yes Patient verbally consented to billing insurance company: Yes Patient informed of any privacy concerns related to visit: Yes Minutes spent on Phone/Video with Pt.: 65 Coding Level of Care Code Established Pt Tele Psytx >53 mins (00434) Patient Type Established Diagnoses Adjustment disorder F43.20 Pre-bariatric surgery psychological evaluation Z71.89 Additional Codes PHQ-9 - 95527 - PHQ-9 Billing: Yes ([id number]) Time Spent (min) 65
--- OUTSIDE RECORDS SUMMARY | 2024-12-21 10:39 | XMS_ITS | Patient Health Record ---
Author Organization [facility] Address [address] [place], [place] [id number] Care Team Providers Care Seam Steamer Name Role Phone Rex FLOWERS, [facility] Primary Care Provider Ludwin Sanchez [phone] Reason For Referral No Information Plan Of Treatment No Information Insurance Providers Payer Name Payer Address Payer Phone Subscriber Number Group Number Insured Name Patient Relationship to Insured Coverage Start Date Coverage End Date [facility] [address] [address] [place] [address] [id number] Yas Worthington Self - patient is the insured Medical (General) History Surgical History 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
== END 2024-12-21 10:55 | disposition home or self-care (01) ==
PROVIDERS: PCP Internal Medicine; Visit Provider Counselor Mental Health
DX: F43.20 Adjustment disorder, unspecified (principal); Z71.89 Other specified counseling
CPT/HCPCS: 90837

== ENCOUNTER → 2024-12-21 09:44 | Outpatient (BNVA) | payer OTHER, SELFPAY | PROVIDERS: PCP Internal Medicine; Visit Provider Counselor Mental Health ==

== ENCOUNTER 2024-12-30 07:16 | Outpatient (REF) | payer OTHER, SELFPAY ==
--- NOTE | ~2024-12-30 | US_ITS ---
EXAMINATION: US ABDOMEN COMPLETE WITH LIVER ELASTOGRAPHY HISTORY: E66.01 - Morbid (severe) obesity due to excess calories TECHNIQUE: Real-time grayscale ultrasound imaging of the abdomen was performed and images were reviewed. COMPARISON: There are no prior studies available for comparison. FINDINGS: Liver: The right lobe of the liver measures 14.9 cm in size. The left lobe of the liver measures 11.3 cm in size. The liver demonstrates increased echotexture, consistent with steatosis. No focal mass or intrahepatic biliary ductal dilatation is identified. There is normal hepatopedal flow in the portal vein. Ultrasound elastography of the liver was performed with 10 separate measurements of the liver parenchyma with the patient in the supine position. Measurements were obtained approximately 2 cm below Leon's capsule and perpendicular to the capsule. The median shear wave velocity is 1.61 m/s. The interquartile range/median (IQR/median) is 0.10. Gallbladder and biliary tree: The gallbladder is unremarkable, without evidence of calculi, wall thickening, or pericholecystic fluid. There is no sonographic Spear sign. The common bile duct is normal in caliber measuring 6 mm. Kidneys: The right kidney measures 11.7 cm in length. The left kidney measures 12.7 cm in length. The kidneys are unremarkable, without evidence of masses, hydronephrosis, or calculi. Pancreas: The pancreatic head, neck, and body are unremarkable. The pancreatic tail is obscured by bowel gas. Spleen: The spleen is normal in size and contour, measuring 11.8 cm in length. Abdominal aorta and inferior vena cava: The visualized portions of the abdominal aorta and inferior vena cava are normal in caliber. There is no free fluid in the abdomen. US/US abdomen comp w elastography IMPRESSION: Hepatic steatosis. The median shear wave velocity in the liver is 1.61 m/s, corresponding to a median liver stiffness of 7.89 kPa. The IQR/median value is 0.10. This is indicative of a quality data set. Findings are indicative of a low elastography value which rules out advanced chronic liver disease in asymptomatic patients. REFERENCE: Society of Radiologists in Ultrasound Liver Stiffness Thresholds (2020): LIVER STIFFNESS THRESHOLDS: *Shear wave velocity less than 1.3 m/s (Liver Stiffness equal or less than 5 kPa): High probability of being normal. *Shear wave velocity less than 1.7 m/s (Liver Stiffness less than 9 kPa): In the absence of other known clinical signs, rules out compensated advanced chronic liver disease. *Shear wave velocity between 1.7-2.1 m/s (Liver Stiffness 9-13 kPa): Suggestive of compensated advanced chronic liver disease but need further test for confirmation. *Shear wave velocity between 2.1-2.4 m/s (Liver Stiffness 13-17 kPa): Rules in compensated advanced chronic liver disease. *Shear wave velocity greater than 2.4 m/s (Liver Stiffness over 17 kPa): Suggestive of clinically significant portal hypertension. QUALITY OF DATA SET: *IQR/Median value equal or less than 0.15 implies a quality data set. *IQR/Median value over 0.15 implies a poor quality data set. SIGNIFICANT CHANGE FROM PRIOR EXAM: Significant change if liver stiffness measurement is 10% or greater from prior exam. OTHER CONSIDERATIONS: The stage of liver fibrosis may be overestimated in the setting of acute hepatitis, liver inflammation, elevated liver function tests, hepatic vascular congestion, obstructive cholestasis, non-fasting state, and infiltrative diseases such as amyloidosis and lymphoma. In some patients with NAFLD, the liver stiffness thresholds for compensated advanced chronic liver disease may be lower. In causes other than viral hepatitis and NAFLD, liver stiffness thresholds are not well established. Electronically signed by: Robbi English MD 12/30/2024 08:34 AM EDT
--- OUTSIDE RECORDS SUMMARY | 2024-12-30 07:19 | XMS_ITS | Patient Health Record ---
[facility] Address [address] [place], [place] [id number] Care Team Providers Care Oil Sprayer Name Role Phone Rex FLOWERS, [facility] Primary Care Provider Ludwin Sanchez [phone] Reason For Referral No Information Plan Of Treatment No Information Insurance Providers Payer Name Payer Address Payer Phone Subscriber Number Group Number Insured Name Patient Relationship to Insured Coverage Start Date Coverage End Date [facility] [address] [address] [place] [phone] [id number] Yas Worthington Self - patient is the insured Medical (General) History Surgical History 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
== END 2024-12-30 07:17 | disposition home or self-care (01) ==
LOC: HO.US 07:16
PROVIDERS: PCP Internal Medicine; Visit Provider Surgery
DX: E66.01 Morbid (severe) obesity due to excess calories (principal); Z68.43 Body mass index [BMI] 50.0-59.9, adult
CPT/HCPCS: 76700; 76981

== ENCOUNTER → 2024-12-30 07:18 | Outpatient (BNV) | payer OTHER, SELFPAY | PROVIDERS: PCP Internal Medicine; Visit Provider Radiology Diagnostic Radiology | DX: K76.0 Fatty (change of) liver, not elsewhere classified (principal) | CPT/HCPCS: 76700 ==

== ENCOUNTER 2025-01-18 09:31 | Outpatient (AMB) | payer OTHER, SELFPAY ==
--- NOTE | 2025-01-18 09:05 | MHC.WMTHER ---
Intake Intake Visit Reasons: VIDEO BH F/U Allergies codeine Allergy (Verified 03/23/25 14:14) [facility] Medical History BMI 50.0-59.9, adult Anemia Morbid obesity Surgical History Hx of bariatric surgery History of esophagogastroduodenoscopy (EGD) History of tendonitis History of ovarian cyst Family History Mother Diabetes Hypertension Father No problems noted. 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 Most recent recorded weight on 01/16/2025 is 271 lbs. Patient is required to submit weight measurements on , along with photos of her meals and blood pressure readings. Objective: Patient presents for a pre-operative behavioral health follow-up visit. Discussed current functioning and ongoing challenges. Explored sources of stress, identified her responses, and reviewed coping strategies. Provided support with adjusting to the pre-operative meal and exercise regimen in preparation for upcoming weight-loss surgery. Assessment/Response: Mental status: WNL Risk reported/identified:None Patient finds sessions with this provider beneficial and expresses a desire to continue meeting. Food/Weight/Diet Expectations of change PT started the program on 11/11/2024 at 287 lbs Recent weight from 12/17/2024 was 276 lbs. The Initial Goal is to lose 10% of her weight before surgery, which is about 27lbs. Ultimate weight goal: 260 lbs. before surgery. Recent weight 01/16/2025: 271Lbs The patient wants to become a healthier and active person. Also, to eat better and expand her food preferences. PT is implementing the following: Current meal plan: protein shakes during the day and 2 meals a day (lunch @1pm and Dinner @5pm). - She also does 1-2 fruits a day. Exercise plan: Stationary bike and outdoor walks. Scale: yes Communication with provider: . Assessment & Plan Assessment & Plan (1) Adjustment disorder: Code(s): F43.20 - Adjustment disorder, unspecified Plan Follow up in 1 month for continued support and monitoring of pre-operative progress. Patient to continue submitting weekly weight, meal, and blood pressure documentation to Dr Hodge as instructed by him. Address any new concerns or challenges at next visit. Telehealth Telehealth Telehealth Platform: [employer] Location of provider rendering services: other (Home office. [place], [place]) Location of patient: address on file Patient Identification confirmed using: Name, : Yes Telehealth method: video Patient verbally consented to treatment: Yes Patient verbally consented to billing insurance company: Yes Patient informed of any privacy concerns related to visit: Yes Minutes spent on Phone/Video with Pt.: 55 Coding Level of Care Code Established Pt Tele Psytx >53 mins ([id number]) Patient Type Established Diagnoses Adjustment disorder F43.20 Time Spent (min) 55
--- OUTSIDE RECORDS SUMMARY | 2025-01-18 09:58 | XMS_ITS | Clinical Summary ---
Author Organization [facility] Address [address] [place] [address] Care Team Providers Care Coffee Shop Aide Name Role Phone Unavailable Primary Care Provider [...] - 2023-2 5 season) 2024 Influenza Vaccine (#1) 2025 HIB Vaccines Aged Out No longer [...] 5 Years) and At-Risk Patients (6 to 49 Years) Aged Out No longer eligible b ased on patient's age to complete this topic RSV Immunization Patients Un franchesca 20 months Aged Out No longer eligible b ased on patient's age to complete this topic Varicella Vaccines Aged Out No longer eligible based on patient's age to complete this topic
--- OUTSIDE RECORDS SUMMARY | 2025-01-18 09:58 | XMS_ITS | Patient Health Record ---
Author Organization [facility] Address [address] [place], [place] [id number] Care Team Providers Care Coremaker Machine Name Role Phone Rex FLOWERS, [facility] Primary Care Provider Ludwin Sanchez [phone] Reason For Referral No Information Plan Of Treatment No Information Insurance Providers Payer Name Payer Address Payer Phone Subscriber Number Group Number Insured Name Patient Relationship to Insured Coverage Start Date Coverage End Date [facility] [address] [address] [place] [address] [id number] Yas Worthington Self - patient is the insured Medical (General) History Surgical History 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
--- OUTSIDE RECORDS SUMMARY | 2025-01-18 09:58 | XMS_ITS | Data Portability ---
Author Organization [place] [facility] [place] [place] [facility] Address [address] [place] [address] Care Team Providers Care Bulk Fluids Handler Name Role Phone SHIRLEY PREET Primary Care Provider [phone] PREET WATSON Referring Provider [phone] AAMIR LARA Client Architect HAIDER CLARK Client Architect Unavailable Referring Provider Unavailable Assessment Encounter Date [...] duty and will continue to do so [email or web address] Not available 12/27/2017 09:14:01 02/07/2018 02/07/2018 Continue [...] contrast - work related injury 2017 018 [facility], [address] [place], [address], 8 14:37:43 Medication Orders ibuprofen 800 mg tablet 2017 018 INTERFACE [id number], [address] [place], [address], 10:52:34 methylpred nisolone acetate 40 mg/mL suspension for injection 2017 018 [email or web address] Not available 08:26:45 Patient TargetsNo targets recorded. Patient Instructions Encounter Date Encounter Id Patient Instructions Last Modified By Organization Details Last Modified Time 03/25/2017 [id number] patient was instructed that we would not [...] contr ast No observ ation record ed. [facility] (Medical Records) [address] [place] [address], [address], 12/27/2017 16:53:39 Result Notes None recorded. Problems No Known Problems Procedures Surgical History Date Name Laterality Status Provider Name and Address Organization Details Recorded Time Shoulder Subacromial - LEFT - CS Injection completed MAYLIN Fitzgerald [address] [place], [address], [facility] 02/07/2018 08:31:10 7 Eric Suture Removal completed Nelson Reyes MD [address] [place], [address], [facility] 12/31/2016 09:18:08 7 Eric Suture Removal completed Nelson Reyes MD [address] [place] [address], [phone], [facility] 12/24/2016 10:31:04 Imaging Results None [...] Updated DateTime 12/17/2017 154.94 cm 46.5 kg/m2 763339.72 g Meme Kingston [facility] 12/17/2017 13:24:32 Date Recorded Body height Body mass index (BMI) Body weight Provider Name and Address Organization Details Last Updated DateTime 12/27/2017 154.94 cm 46.5 kg/m2 859831.72 g Melissa Up [facility] 12/27/2017 09:06:42 Date Recorded Body height Body mass index (BMI) Body weight Provider Name and Address Organization Details Last Updated DateTime 02/07/2018 154.94 cm 46.5 kg/m2 148938.72 g Meme Khalilnez [facility] 02/07/2018 08:10:22 Date Recorded Body height Body mass index (BMI) Body weight Provider Name and Address Organization Details Last Updated DateTime 03/07/2018 154.94 cm 46.5 kg/m2 106972.72 g Patricia Nealdo [facility] 03/07/2018 10:41:58 Date Recorded Body height Body mass index (BMI) Body weight Provider Name and Address Organization Details Last Updated DateTime 03/25/2017 154.94 cm 46.5 kg/m2 504578.72 g Meme Kingston [facility] 03/25/2017 09:24:55 Social History Question Answer Notes LastModified by Celframe Details LastModified Time Tobacco Smoking Status Former Smoker Bridgette Alirio salcedo [facility] 08/15/2016 13:03:04 Auto Related Injury? No [...] Functional Status Question Answer Note LastModified by Celframe Details LastModified Time What is your level of alcohol consumption? Occasional Information not available 08/15/2016 Are you currently employed? Yes Information not available 08/15/2016 Mental Status None recorded. Family History Relationship Description Onset Age of this Age Resolved Age Notes LastModified by Organization Details LastModified Time Mother Diabetes mellitus Not available 2016 13:02:55 Medical History Condition Response Coronary Artery Disease N Hereditary Defects N Gout N Tremors/Seizures/Dizziness/Epilepsy N Lung Disease N Blood Clots N Pacemaker N Heart Disease/Problems N Breathing Problems N Sexually Transmitted Diseases N Bleeding Disorder/Tendencies or Anemia Y Skin Problems/Rash/Boils N Arthritis Y Cancer N Stroke N Eye Problems N Leg or Foot Ulcers N HIV/AIDS N Stomach Problems/Reflux/GERD N Rheumatoid Arthritis N Hypertension/High Blood Pressure N Kidney Disease N Heart Problems N Excessive Thirst/Fatigue N Fever, Chills, Headaches N Heart Attack ([place]) N Stomach Ulcers N Diabetes N Depression/Psychiatric Problems N Tuberculosis N Chest Pain/Heart Attack/Arrhythmia N Urinary Pain/Frequency/Retention N Hepatitis N Osteoporosis N Gynecological HistoryNo gynecological history recorded. Obstetrics History GPAL:G 0 P 0 0 0 0 Past Encounters Encounter ID Performer Location Encounter Start Date Encounter Closed Date Diagnosis/Indication Diagnosis SNOMED-CT Code Diagnosis ICD10 Code Diagnosis Note [id number] Belem Graham OFFICE-N. [facility] ot a [address] [address] 08/15/2016 12:36:37 08/15/2016 14:14:17 Pain of joint of wrist 857621943 M25.539 Radial sty loid tenosynovitis 07106645 M65.4 [id number] Nelson Reyes MD OFFICE-N. [facility] a [address] [address] 09/12/2016 10:59:39 09/12/2016 11:51:06 Pain of joint of hand 932914482 M79.643 Radial sty loid tenosynovitis 21673650 M65.4 [id number] Belem Graham OFFICE-N. [facility] a [address] [address] 10/08/2016 10:37:56 10/08/2016 12:03:35 Radial styloid tenosynovitis 03912445 M65.4 Left [id number] Belem Graham OFFICE-N. [facility] a [address] [address] 12/17/2016 12:14:25 12/17/2016 13:15:47 Radial styloid tenosynovitis 42514312 M65.4 Left [id number] Nelson Reyes MD OFFICE-N. [facility] a [address] [place] [address] 12/24/2016 09:56:04 12/24/2016 10:32:15 Radial styloid tenosynovitis 46273753 M65.4 [id number] Nelson Reyes MD [facility] [address] [address] 12/31/2016 08:59:51 12/31/2016 09:31:20 Radial styloid tenosynovitis 09894759 M65.4 [id number] Nelson Reyes MD OFFICE - [place] [address] [place] [id number] 01/28/2017 08:41:23 01/28/2017 09:54:57 Radial styloid tenosynovitis 57271869 M65.4 [id number] Nelson Reyes MD OFFICE - [place] [address] [place] [id number] 02/25/2017 08:49:55 02/25/2017 09:14:21 Radial styloid tenosynovitis 59359797 M65.4 [id number] Belem Graham OFFICE - [place] [address] [place] [id number] 03/25/2017 09:16:00 03/25/2017 10:03:29 Radial styloid tenosynovitis 39541932 M65.4 [id number] Juan Pablo Holt MD OFFICE - [place] [address] [place] [id number] 12/17/2017 13:01:39 12/17/2017 14:12:00 Sprain of shoulder rotator cuff 7267022612 04 S43.422A [id number] Juan Pablo Holt MD OFFICE - [place] [address] [place] [id number] 12/27/2017 08:55:28 12/27/2017 09:13:51 Sprain of shoulder rotator cuff 4555570155 04 S43.422A [id number] MAYLIN Fitzgerald OFFICE - [place] [address] [place] [id number] 02/07/2018 08:00:13 02/07/2018 08:31:04 Sprain of shoulder rotator cuff 9325081297 04 S43.422A [id number] MAYLIN Fitzgerald OFFICE - [place] [address] [place] [address] 03/07/2018 10:17:29 03/07/2018 10:56:27 Sprain of shoulder rotator cuff 2734458842 04 S43.422A Health Concerns Section Related Observation LastModified by Organization Detai ls LastModified Time None Recorded Concern Status LastModified by Organization Details LastModified Time None Recorded Advance Directives Directive None Recorded Payers Insurance Date Sequence Insurance Name Policy Number Policy Gomez Covered Member ID Gomez Member ID Guarantor Name 01/28/2017 1 [employer] Yas Worthington [id number] Yas Worthington 10/08/2016 1 [place] [facility] Worthington [id number] Yas Worthington 12/18/2017 [employer] Yas Worthington 12/19/2017 [employer] Yas Worthington 03/04/2018 1 [facility] (O) [id number] Yas Worthington [id number] Yas Worthington Notes Date Note Type Note [...] denies numbness and tingling. Belem Graham [address] [place], [address], [facility] 03/25/2017 09:45:15 12/17/2017 text/html This is [...] She went to the emergency room at [facility] where x-rays of her shoulder were [...] for plantar fasciitis. Juan Pablo Holt MD [address] [place] [address], [phone], [facility] 12/17/2017 13:56:47 12/27/2017 text/html Judy is seen in follow-up. MRI scan was completed this morning at [facility]. Review of the study shows degenerative cyst in the posterior aspect of the humeral head with some very small sub-bursal fluid collection. No evidence of rotator cuff tear or significant labral pathology. Biceps tendon appears to be intact as well. She is currently working full duty and having some mild discomfort at work Juan Pablo Holt MD [address] [place] [address], [phone], [facility] 12/27/2017 09:14:21 02/07/2018 text/html Judy is seen in follow-up. She is currently working full duty and has continued to have the same symptoms. She finished physical therapy after her last visit with us. MAYLIN Fitzgerald [address] [place] [address], [phone], [facility] 02/07/2018 08:33:10 03/07/2018 text/html Yas is follo wing up here on her sprain of rotator cuff. She did not have great relief with the injection last time. She continues her home exercises and still has persistent pain. She has been working full-time. MAYLIN Fitzgerald [address] [place] [address], [phone], [facility] 03/07/2018 11:14:50 OBGyn Episode No OBEpisode recorded.
== END 2025-01-18 10:07 | disposition home or self-care (01) ==
LOC: HO.HBST 09:31
PROVIDERS: PCP Internal Medicine; Visit Provider Counselor Mental Health
DX: F43.20 Adjustment disorder, unspecified (principal)
CPT/HCPCS: 90837

== ENCOUNTER 2025-02-10 08:24 | Outpatient (AMB) | payer OTHER, SELFPAY ==
--- OUTSIDE RECORDS SUMMARY | 2025-02-10 08:31 | XMS_ITS | Patient Health Record ---
Author Organization [facility] Address [address] [place], [place] [address] Care Team Providers Care Piledriver Carpenter Name Role Phone Rex FLOWERS, [facility] Primary Care Provider Ludwin Sanchez [phone] Reason For Referral No Information Plan Of Treatment No Information Insurance Providers Payer Name Payer Address Payer Phone Subscriber Number Group Number Insured Name Patient Relationship to Insured Coverage Start Date Coverage End Date [facility] [address] [address] [place] [address] [id number] Yas Worthington Self - patient is the insured Medical (General) History Surgical History 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
--- OUTSIDE RECORDS SUMMARY | 2025-02-10 08:31 | XMS_ITS ---
Author Organization [facility] Address [address] [facility] [address] [place] [id number] Phone Care Team Providers Care Shingles Roofer Helper Name Role Phone Eren Mcpherson MD Unavailable Garo Crowell MD Unavailable Megan Guevara RN Unavailable [email or web address] Marija Fair RN Unavailable [email or web address] Vy Summers RN Unavailable [email or web address] Alessandra German RN Unavailable Marisabel [email or web address] Martha Méndez AMBULATORY SERVICES REPRESENTATIVE Unavailable [phone] Pcp, Unknown Primary Care Provider Unavailabl e Active Problems Problem Noted Date Diagnosed Date Infertility, female 12/14/2021 Assessment & Plan (12/14/2021 8:48 AM EDT): The patient is 36 never been able to conceive despite trying sporadically in the past We will place a referral for further evaluation Mixed hyperlipidemia 12/14/2021 Assessment & Plan (12/14/2021 8:50 AM EDT): LDL is above normal Discussed the importance of healthy diet, regular exercise and weight loss We will repeat at the time of her physical No indication for statin therapy currently Abnormal mammogram of right breast 12/14/2021 Assessment & Plan (12/14/2021 8:51 AM EDT): History of abnormal mammogram Patient has an intermittently palpable mass on her right breast presents We will repeat imaging as directed by radiology Low threshold to send to general surgery for removal pending results Pap smear for cervical cancer screening 03/16/20 21 Assessment & Plan (03/16/2021 2:17 PM EDT): Pap, pelvic and breast exam completed with no acute findings Ongoing management per hematology due to anemia and heavy bleeding We will make a referral to reproductive endocrinology for formal evaluation of infertility; she would consider a therapeutic hysterectomy given heavy bleeding though would like to be sure there is no chance she could have children prior Annual physical exam 03/16/2021 Assessment & Plan (03/16/2021 2:18 PM EDT): Well adult. Reviewed importance of minimizing high risk behaviors, including tobacco avoidance, moderating alcohol intake and safe sexual practices. Discussed importance of regular seatbelt and sunscreen use. Importance of healthy dietary choices and regular excercise. Encouraged pt to begin daily multivitamin and OTC Ca +D. Reinforced importance of routine dental, optho and derm. HM updated Intractable migraine without aura and with status migrainosus 08/12/2020 Assessment & Plan (12/14/2021 8:47 AM EDT): Well-controlled Continue current medications and management per neurology Assessment & Plan (06/15/2021 8:50 AM EST): Chronic migraines, periodically intractable She is currently taking amitriptyline, gabapentin and Relpax as needed Despite this headaches persist She has been evaluated by neurology locally; Has been unrevealing She was referred to [facility] for additional testing options She is advised to continue current medications and ongoing management per neurology both locally and at [facility] Assessment & Plan (03/16/2021 2:16 PM EDT): Chronic migraines Unfortunately she has yet to come up with a longstanding effective regimen She maintains close follow-up with neurology She has an appointment next week She will continue current medications and follow-up as scheduled Assessment & Plan (11/15/2020 8:04 AM EDT): Chronic migraines Multiple medications have been tried with no significant relief More recently she was started on a regimen by neurology She has been taking these for a few weeks She is advised to continue current medications as directed by neurology She will follow up with neurology next week Assessment & Plan (09/29/2020 8:51 AM EDT): Persistent migraine since early August without response to multiple medications Currently taking as needed rizatriptan and daily low-dose nortriptyline per neurology Despite this headaches persist Unemployment paperwork completed today A head CT was quite normal She will continue follow-up with neurology An effort to combat headaches I will add a low-dose of atenolol; she will take this at nighttime and we reviewed dosing and compliance She will stop tramadol Follow-up with neurology in a few weeks Follow-up with this office after neurology She is advised to call with any acute change in symptoms Assessment & Plan (08/31/2020 8:25 AM EST): Intermittent migraines that began >4 weeks ago She was seen in a local ER;she was treated with Reglan, Benadryl and Toradol Ibuprofen, magnesium and Imitrex have been ineffective Tramdol prn is helpful Currently taking every few days No associated nausea, vomiting Plans to call today for neuro appt Head Ct unrevealing Continue prn tramadol Schedule neuro f/u Pending appt date may consider adding topamax Ongoing close clinical follow up Assessment & Plan (08/24/2020 8:14 AM EST): Persistent intractable migraine that began >2 weeks agoShe was seen in a local ER; records from [facility] reviewed at the time of this visit She was treated with Reglan, Benadryl and Toradol B Profen, magnesium and Imitrex have been ineffective She has an appointment with neurology tomorrow morning Intractable migraines of unclear etiology We will send a short course of tramadol for pain management only She will follow up with neurology tomorrow as scheduled She will need imaging of her head at some point; if not ordered by neurology tomorrow she will contact this office and I will place order Ongoing close clinical follow-up Assessment & Plan (08/16/2020 8:13 AM EST): Persistent intractable migraine that began greater than 1 week ago She was seen in a local ER; records from [facility] reviewed at the time of this visit She was treated with Reglan, Benadryl and Toradol She is currently taking ibuprofen with improvement of symptoms She is advised to begin magnesium as discussed I resent her prescription for imitrex to [facility] where this will be less expensive We will reassess in 1 week or sooner with any decline in symptoms We will refer to neurology for their input Assessment & Plan (08/12/2020 9:42 AM EST): Persistent frontal migraine for the last week No injury or trauma prior to onset No vision changes Nonresponsive to aems-uyh-vapywfv medications that typically provide relief No associated nausea or vomiting No neuro deficits on exam Acute intractable migraine She is advised to start Imitrex as needed and begin magnesium once daily If this is ineffective and headache persists over the weekend she is advised to go to the urgent care for consideration of Toradol injection We will follow-up next week; if headache is persisting at that time would consider imaging She describes the pain is persistent and moderate; she does not describe the worst headache of her life Should symptoms get worse or pain become intolerable she needs to go to an emergency room Iron deficiency anemia due to chronic blood loss 07/27/2020 Assessment & Plan (03/16/2021 2:16 PM EDT): Currently asymptomatic Longstanding issues with iron deficiency anemia due to heavy menstrual bleeding Management per hematology Iron infusions as needed Malabsorption due to intolerance, not elsewhere classified 07/27/2020 Excessive bleeding in premenopausal period 07/27 Assessment & Plan (12/14/2021 8:48 AM EDT): Improved since the placement of an IUD Class 3 severe obesity witho ut serious comorbidity in adult, unspecified BMI, unspecified obesity type Assessment & Plan (12/14/2021 8:47 AM EDT): Encouraged healthy diet, exercise and weight loss She is commended on the weight loss she had though it sounds like she has gained back a few pounds She will contact the bariatric surgery center for surgical date Assessment & Plan (06/15/2021 8:50 AM EST): Wt Readings from Last 3 Encounters: 06/15/21 115.4 kg (254 lb 6.4 oz) 05/23/21 115.8 kg (255 lb 4.7 oz) 05/16/21 117.8 kg (259 lb 11.2 oz) Healthy diet, exercise and weight loss encouraged She will plan to proceed with bariatric surgery at [facility] Preop paperwork completed today She is an acceptable surgical risk Assessment & Plan (11/15/2020 8:04 AM EDT): Ongoing inability to lose weight Admittedly she has not been very active due to issues with migraines She is referred to bariatric surgery at [facility] Contact info given and she is advised to call today Assessment & Plan (09/29/2020 8:52 AM EDT): Wt Readings from Last 3 Encounters: 09/29/20 120.2 kg (265 lb) 08/12/20 117.8 kg (259 lb 11.2 oz) 08/12/20 117.9 kg (260 lb) We will refer to bariatric surgery for discussion of weight loss Current Treatment and Therapy Plans No current plan information found. Other Current Plans FERUMOXYTOL (FERAHEME)* Plan Start Date:05/16/2021 Plan Provider:Garo Crowell MD Linked Problems Iron deficiency anemia due t o chronic blood lossMalabsorption due to intolerance, not elsewhere classifiedExcessive bleeding in premenopausal period Treatment Medications No medications scheduled. Past Treatment and Therapy Plans Resolved Problems Problem Noted Date Diagnosed Date Resolved Date Malignant neoplasm of upper- outer quadrant of left breast in female, estrogen receptor positive 12/14/2021 12/14/2021 Breast pain, right 03/16/2021 Assessment & Plan (03/16/2021 2:17 PM EDT): Right breast pain with reported palpable mass last week I do not appreciate any mass on exam today The patient does endorse discomfort A paternal grandmother carried a diagnosis of breast cancer; her mother did have a breast biopsy but it is unclear that this was actually cancer We will proceed with diagnostic mammogram and ultrasound
--- OUTSIDE RECORDS SUMMARY | 2025-02-10 08:31 | XMS_ITS | Clinical Summary ---
Author Organization [facility] ity Address [address] [place] [address] Care Team Providers Care Hvac Mechanic Name Role Phone Unavailable Primary Care Provider [...] Vaccine ( - 2023-2 5 season) 2024 Depression Screening 07/08/2024 Influenza Vaccine (#1) 2025 HIB Vaccines Aged [...]
--- NOTE | 2025-02-10 11:13 | MHC.OFFVISWM ---
VS Expanded 02/10/25 11:21 Height 5 ft 3 in Weight 265 lb 8 oz BMI 47.0 Body Fat % 62.9 Body Fat Mass 167.1 Fat Free Mass 98.5 Visceral Fat Rating 27 Body Water % 25.4 Body Water Mass 67.5 Basal Metabolic Rate/Score 1,901 Intake Visit Reasons: TV Pre Op LSG 02/25/25 *FLEXIBLE* Allergies codeine Allergy (Verified 02/10/25 11:13) Hives Medication List - Last Reconciled 02/10/25 by Erasto Quintanilla MD cholecalciferol (vitamin D3) 125 mcg PO DAILY iron,carbonyl-vitamin C 65 mg iron- 125 mg (Vitron-C) 1 tab PO DAILY mecobalamin (vitamin B12) 1,000 mcg sublingual DAILY ondansetron 4 mg PO Q12H pantoprazole 40 mg PO DAILY polyethylene glycol 3350 17 grams PO DAILY sucralfate 10 mL PO BID thiamine HCl (vitamin B1) 100 mg PO DAILY vitamin A palmitate 4,500 mcg PO DAILY HPI HPI TV Pre Op LSG 02/25/25 *FLEXIBLE*: Details: Start time: 11.03am, End time: 11.33am ?I spent 25 minutes speaking with the patient on the phone plus an additional 5 minutes reviewing and updating records for a total of 30 minutes HPI Comments Details: Overall weight loss: 20.8lbs, or 7.3% TBWL Is doing 2 Celebrate Rebuild protein shakes (2 scoops in 8oz almond milk), 2 Ensure Clear protein valente and one meal (12 forks of protein and 12 forks of salad or vegetables) Exercise: bike daily for 300 calories [facility] Medical History Anemia Morbid obesity Surgical History History of tendonitis History of ovarian cyst Family History Mother Diabetes Hypertension Father No problems noted. Paternal Grandmother Breast cancer Social History Housing: Apartment Alcohol intake: current Alcohol intake frequency: a few times a month Alcohol type: hard liquor Patient Tobacco Use Status: Never used Tobacco e-Cigarette/Vaping Use: Never Used Second Hand Smoke Exposure: No service: No Current occupational status: employed Current occupational exposures/hazards: No Cognitive needs: No Hearing needs: No Vision needs: Yes Telehealth Telehealth Telehealth Platform: Telephone Location of provider rendering services: practice address Location of patient: address on file Patient Identification confirmed using: Name, : Yes Telehealth method: voice only Patient verbally consented to treatment: Yes Patient verbally consented to billing insurance company: Yes Patient informed of any privacy concerns related to visit: Yes Minutes spent on Phone/Video with Pt.: 30 Assessment & Plan Assessment & Plan (1) Morbid obesity: Code(s): E66.01 - Morbid (severe) obesity due to excess calories Category: Medical Plan: 1. Plan for lap sleeve gastrectomy including upper GI endoscopy. All tests has been completed and reviewed and the patient is cleared for the surgery. ?If diaphragmatic or ventral hernias are present at time of surgery, these will be repaired laparoscopically as well. Risks and complications were discussed in detail including possible conversion to an open procedure, anastomotic leak, bleeding requiring transfusion, small bowel obstruction, , DVT and pulmonary embolism, cardiac, or pulmonary complications, as residential complications such as anastomotic ulcer, insufficient weight loss and vitamin deficiencies. I emphasized the importance of close follow-up, adherence to instructions and good communication. So far she has proven to be an excellent communicator and very compliant with all our directions accomplishing a great weight loss. I believe that she is an excellent candidate and she is ready. 2. Preop prescriptions were provided and explained the purpose of each one. Need to be purchased preop. Start Pantoprazole now as you get it from the pharmacy, 1 pill per day. Sucralfate and Zofran are for after surgery as needed. 3. Bowel prep: please do 7 packets ?of Miralax mixing each one with a an 8oz glass of water, crystal light, gatorade zero, or propel ?on 02/23/25 and the same amount on 02/24/25. The Miralax you begin with one packet at a time in 8oz water or crystal light, gatorade zero, or propel ?as early in the day as you can and you do them back to back until you finish them. Continue the protein shakes during ?the bowel prep. 4. Needs to purchase 1oz medicine cups . 5. Needs to purchase Children's liquid Tylenol for postop pain control. 6. Avoid aspirin, motrin, Advil, Aleve, Meloxicam, Excedrin, Ibuprofen, Naproxyn. Tylenol is OK. 7. She needs to purchase the Celebrate multivitamins from the hospital's gift shop, chewable or pills whatever you prefer. 8. Will do basic preop blood work-up any day between Saturday02/15/25 and Saturday02/19/25 fasting for 12 hours and is scheduled to see the Anesthesiologist prior to the day of surgery. 9. Importance of adherence to postop folllow-up and recommendations was underscored and she understands that. 10. Stop food and bars as of tomorrow 02/11/25 and continue with 4 Celebrate REBUILD protein shakes (TWO scoops EACH in 8oz almond milk) at 6am-8am, 9am-11am, 12pm-2pm and 3pm-5pm and one Ensure Clear protein water at 6pm-8pm 11. No soups, broths or V8 12. The patient's?medical?history has been reviewed and they are considered low risk for post op DVT and therefore DVT prophylaxis is not considered necessary. Travel after surgery was reviewed. The patient has not disclosed any travel plans during the first 30 days after surgery and they have been advised that within the first 30 days after surgery any bus, plane, train or car travel over 2 hours in duration is contraindicated due to the possibility of developing blood clots from immobility. Any travel, needs to include periods of ambulation of 10 minutes in duration every 2 hours.? Patient was instructed to discuss any plans for travel during this period with their bariatric surgeon.? 13. Please take at the day of surgery the following medications: NONE 14. Stop any control pills and don't use them for one month after surgery 15. Absolutely no smoking or vaping, or marijuana until the surgery and for at least the first 4 weeks. Only nicotine patches are allowed. 16. Send me weight measurements on 02/11/25 and 02/18/25 and then on 02/25/25, the day of surgery before you go to the hospital. 17. Avoid any steroids by mouth for any reason. Let me know if someone prescribes them to you 18. These instructions supersede anything else you read in the handbook, anything you watched in videos or classes or you were told by any other provider. If there is any conflict, you follow the above instructions and nothing else. Orders: Orders Lipid Panel Today E66.01 - Morbid (severe) obesity due to excess calories Partial Thromboplastin Time Today E66.01 - Morbid (severe) obesity due to excess calories Type and Screen Today E66.01 - Morbid (severe) obesity due to excess calories Prothrombin Time INR Today E66.01 - Morbid (severe) obesity due to excess calories Insulin Today E66.01 - Morbid (severe) obesity due to excess calories Complete Blood Count Auto Diff Today E66.01 - Morbid (severe) obesity due to excess calories C Reactive Protein Today E66.01 - Morbid (severe) obesity due to excess calories Hemoglobin A1c Today E66.01 - Morbid (severe) obesity due to excess calories Comprehensive Met. Panel Today E66.01 - Morbid (severe) obesity due to excess calories TSH reflex Free T4 Today E66.01 - Morbid (severe) obesity due to excess calories Medications: New pantoprazole 40 mg PO DAILY 90 tabs 0RF K21.9 - Gastro-esophageal reflux disease without esophagitis sucralfate 10 mL PO BID 600 mL 2RF K21.9 - Gastro-esophageal reflux disease without esophagitis ondansetron Only take one every 12 hours as needed if you have nausea 4 mg PO Q12H 20 tabs 0RF nausea and vomiting R11.0 - Nausea polyethylene glycol 3350 Mix each measuring cup with 8oz of water, Crystal light, or Gatorade zero, or Propel and do 7 measuring cups on 02/23/25 and another 7 measuring cups on 02/24/25 17 grams PO DAILY 238 grams 0RF Z01.818 - Encounter for other preprocedural examination
[2025-02-10 11:21] VITALS: BMI 47.0
== END 2025-02-10 11:34 | disposition home or self-care (01) ==
LOC: HO.HBS 08:24
PROVIDERS: PCP Internal Medicine; Visit Provider Surgery
DX: E66.01 Morbid (severe) obesity due to excess calories (principal)
CPT/HCPCS: 99214

== ENCOUNTER 2025-02-22 08:15 | Outpatient (REF) | payer OTHER, SELFPAY ==
--- NOTE | ~2025-02-22 | FL_ITS ---
EXAMINATION: XR FLUOROSCOPY UPPER GI WITH AIR CLINICAL INFORMATION: Moderate/severe obesity due to excess calories. Preop. COMPARISON: None available. TECHNIQUE: Routine upper GI air contrast study was performed in upright and lying position. FINDINGS: Following oral administration of thick barium and effervescent granules is normal antegrade propagation of bolus from the oral cavity , pharynx, esophagus into stomach without any evidence of obstruction, narrowing or stricture. No intraluminal filling defect or extrinsic compression seen. On placing patient supine and prone lying the course, caliber and peristalsis of the stomach, duodenal bulb and sweep is normal. The mucosal pattern of stomach, duodenal bulb and the sweep is normal as well. There is mild gastroesophageal reflux without hiatal hernia. FLUOROSCOPY TIME: 1 minute 31 seconds DOSE AREA PRODUCT: 1755 uGy-m2 (microgray-meter squared) FL/FL upper GI w air IMPRESSION: Mild gastroesophageal reflux without hiatal hernia . Electronically signed by: Chay Yan MD 02/22/2025 09:20 AM EDT
--- OUTSIDE RECORDS SUMMARY | 2025-02-22 08:33 | XMS_ITS | Patient Health Record ---
Author Organization [facility] Address [address] [place], [place] [id number] Care Team Providers Care Director Of Music Name Role Phone Rex FLOWERS, [facility] Primary Care Provider Ludwin Sanchez [phone] Reason For Referral No Information Plan Of Treatment No Information Insurance Providers Payer Name Payer Address Payer Phone Subscriber Number Group Number Insured Name Patient Relationship to Insured Coverage Start Date Coverage End Date [facility] [address] [address] [place] [address] [id number] Yas Worthington Self - patient is the insured Medical (General) History Surgical History 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
--- OUTSIDE RECORDS SUMMARY | 2025-02-22 08:33 | XMS_ITS | Clinical Summary ---
Author Organization [facility] ity Address [address] [place] [address] Care Team Providers Care Machine Tool Mechanic Name Role Phone Unavailable Primary Care [...]
== END 2025-02-22 08:16 | disposition home or self-care (01) ==
LOC: HO.XRAY 08:15
PROVIDERS: PCP Internal Medicine; Visit Provider Surgery
DX: E66.01 Morbid (severe) obesity due to excess calories (principal); Z68.43 Body mass index [BMI] 50.0-59.9, adult
CPT/HCPCS: 74246

== ENCOUNTER → 2025-02-22 08:17 | Outpatient (BNV) | payer OTHER, SELFPAY | PROVIDERS: PCP Internal Medicine; Visit Provider Radiology Diagnostic Radiology | DX: K21.9 Gastro-esophageal reflux disease without esophagitis (principal) | CPT/HCPCS: 74246 ==

== ENCOUNTER 2025-02-25 07:51 | Inpatient (IN) | payer OTHER, SELFPAY ==
[2025-02-17 08:37] LABS: MANUAL DIFF FLAG NO
[2025-02-17 08:51] LABS: Hematocrit 36.5 % (37.0-47.0); Hemoglobin 11.5 g/dl (12.0-16.0); Imm Gran Abs Auto 0.03 X10*3/uL (0.00-0.03); Imm Gran Pct Auto 0.4 % (0.0-0.4); Lymphocytes Absolute Auto 1.9 X10*3/uL (1.2-4.9); Mean Corpuscular HGB Conc 31.5 g/dl (31.0-35.0); Mean Corpuscular Hemoglobin 23.6 pg (27.0-33.0); Mean Corpuscular Volume 74.8 fL (80.0-98.0); NRBC Abs Auto 0.000 X10*3/uL (0.0-0.012); NRBC Pct Auto 0.0 /100WBC (0.0-0.2); Platelet Count 301 X10*3/uL (160-400); Red Blood Count 4.88 X10*6/uL (4.20-5.50); White Blood Count 8.6 X10*3/uL (4.8-10.8)
[2025-02-17 08:56] LABS: INTERNATIONAL NORM RATIO 1.1 (0.9-1.1); Prothrombin Time 13.1 SEC (10.9-12.4)
[2025-02-17 08:58] LABS: Partial Thromboplastin Time 34.8 SEC (26.7-34.1)
[2025-02-17 09:22] LABS: Anion Gap 15 (12-20)
[2025-02-17 09:27] LABS: Alanine Aminotransferase 45 U/L (0-31); Albumin Level 4.3 g/dL (3.5-5.0); Alkaline Phosphatase 80 U/L (39-117); Aspartate Amino Transferase 43 U/L (5-31); Blood Urea Nitrogen 8 mg/dL (9-16); Calcium 9.4 mg/dL (8.4-10.2); Carbon Dioxide 27 mmol/L (22-29); Chloride 103 mmol/L (96-108); Cholesterol 240 mg/dL (<200); Estimated Glomerular Filt Rate > 60; HDL Cholesterol 30 mg/dL (>40); Potassium 3.9 mmol/L (3.3-5.1); Sodium 141 mmol/L (135-145); Total Protein 8.5 g/dL (6.5-8.0); Triglycerides 138 mg/dL (<150)
[2025-02-17 10:39] VITALS: BMI 46.9
[2025-02-17 11:26] LABS: Hemoglobin A1C 192.9788 umol/L; Total Hemoglobin (HGBA1C) 5260.5001 umol/L
--- NOTE | 2025-02-24 09:44 | P.CONAN_ITS ---
Documented by User: Yamini Arteaga NP 02/24/25 09:48 HPI - Anesthesia Eval Consult details Narrative: 39yo F for Gastrectomy Sleeve,EGD,possible Diaphragmatic Hernia,possible Ventral Hernia,possible Open BMI 46.9 PMFSH Active Problems Active Problems: All Active Problems Iron deficiency anemia (Acute) Vitamin B1 deficiency (Acute) Vitamin B12 deficiency (Acute) Vitamin D deficiency (Acute) Anemia (Acute) Vitamin A deficiency (Acute) Skin lesion (Acute) Dyspnea (Acute) Menstrual irregularity (Acute) VAN (generalized anxiety disorder) (Acute) BMI 50.0-59.9, adult (Acute) Mild recurrent major depression (Acute) Morbid obesity (Acute) Past Medical History Medical History Anemia Morbid obesity Family History Family History Mother Diabetes Hypertension Father No problems noted. Paternal Grandmother Breast cancer Surgical History Surgical History History of esophagogastroduodenoscopy (EGD) History of tendonitis History of ovarian cyst History of Problems with Anesthesia: No Social History Social History Housing: Apartment Are you a primary field care advocate to a significant other at home: No Do you presently have visiting nurse or other home services: No Alcohol intake: current Alcohol intake frequency: does not drink Alcohol type: hard liquor Patient Tobacco Use Status: Never used Tobacco e-Cigarette/Vaping Use: Never Used Second Hand Smoke Exposure: No Use of substances other than those prescribed or required for medical reasons: No Have you been hit, kicked, punched, or otherwise hurt by someone within the past year? If so, by whom?: No Are you DNR?: No Advance Directives: No Advance Directives Information Provided: Yes Advance Directives on File: No Patient : No : No Poor oral hygiene: No service: No Current occupational status: employed Current occupational exposures/hazards: No Cognitive needs: No Hearing needs: No Vision needs: Yes Meds Allergies Allergy/AdvReac Type Severity Reaction Status Date / Time codeine Allergy Hives Verified 02/10/25 11:13 Home Medications ?Medication ?Instructions ?Recorded ?Confirmed ?Last Taken ?Type ondansetron 4 mg disintegrating 4 mg PO Q12H PRN nause a and 02/25/25 02/17/25 Unknown History tablet vomiting Exam Height,Weight and Vital Signs: Height 5 ft 3 in Weight 120.202 kg Pertinent Lab Results Pertinent Lab Results: Laboratory Tests 02/17/25 02/17/25 08:26 08:36 WBC 8.6 RBC 4.88 Hgb 11.5 L D Hct 36.5 L D MCV 74.8 L MCH 23.6 L MCHC 31.5 RDW 18.2 H Plt Count 301 MPV 9.5 Immature Gran % (Auto) 0.4 Neut % (Auto) 67.1 Lymph % (Auto) 22.3 Polk % (Auto) 7.1 Eos % (Auto) 2.7 Baso % (Auto) 0.4 Lymph # (Auto) 1.9 Polk # (Auto) 0.6 Eos # (Auto) 0.2 Baso # (Auto) 0.0 Abs Immat Gran (auto) 0.03 Absolute Neuts (auto) 5.7 Absolute Nucleated RBC 0.000 Nucleated RBC % (auto) 0.0 PT 13.1 H INR 1.1 APTT 34.8 H Sodium 141 Potassium 3.9 Chloride 103 Carbon Dioxide 27 Anion Gap 15 BUN 8 L Creatinine 0.65 Estim Creat Clear Calc TNP Estimated GFR > 60 Random Glucose 102 Estimat Average Glucose 111 Hemoglobin A1c % 5.5 Insulin Level 23 Calcium 9.4 D Total Bilirubin 0.5 AST 43 H ALT 45 H Alkaline Phosphatase 80 C-Reactive Protein 4.79 H Total Protein 8.5 H Albumin 4.3 Triglycerides 138 Cholesterol 240 H LDL Cholesterol, Calc 183 H HDL Cholesterol 30 L TSH 0.57 Blood Type A Negative Antibody Screen NEGATIVE Narrative Narrative: EKG 11/2024 Vent. Rate : 97 BPM Atrial Rate : 97 BPM P-R Int : 124 ms QRS Dur : 72 ms QT Int : 372 ms P-R-T Axes : 39 45 13 degrees QTcB Int : 472 ms Normal sinus rhythm Normal ECG No previous ECGs available Assessment and Plan Assessment Anesthesia Assessment: Chart Reviewed Final Anesthetic Review History of Problems with Anesthesia: No Documented by User: Bere George MD 02/25/25 09:06 [facility] Past Medical History Medical History Anemia Morbid obesity Family History Family History Mother Diabetes Hypertension Father No problems noted. Paternal Grandmother Breast cancer Family history of problems with anesthesia: No Surgical History Surgical History History of esophagogastroduodenoscopy (EGD) History of tendonitis History of ovarian cyst Social History Social History Housing: Apartment Are you a primary field care advocate to a significant other at home: No Do you presently have visiting nurse or other home services: No Alcohol intake: current Alcohol intake frequency: does not drink Alcohol type: hard liquor Patient Tobacco Use Status: Never used Tobacco e-Cigarette/Vaping Use: Never Used Second Hand Smoke Exposure: No Use of substances other than those prescribed or required for medical reasons: No Have you been hit, kicked, punched, or otherwise hurt by someone within the past year? If so, by whom?: No Are you DNR?: No Advance Directives: No Advance Directives Information Provided: Yes Advance Directives on File: No Patient : No : No Poor oral hygiene: No service: No Current occupational status: employed Current occupational exposures/hazards: No Cognitive needs: No Hearing needs: No Vision needs: Yes Meds Allergies Allergy/AdvReac Type Severity Reaction Status Date / Time codeine Allergy Hives Verified 02/10/25 11:13 Home Medications ?Medication ?Instructions ?Recorded ?Confirmed ?Last Taken ?Type ondansetron 4 mg disintegrating 4 mg PO Q12H PRN nause a and 02/25/25 02/17/25 Unknown History tablet vomiting Exam Airway Mallampati Class: III TM Dist: <=3cm Neck ROM: Full Heart: RRR Lungs: CTA Assessment and Plan Assessment Anesthesia Assessment: Anesthesia Plan Discussed Final Anesthetic Review Family History of Problems with Anesthesia: No NPO: Yes ASA Class: III Final Preanesthetic Review: No Changes in Pt Med Stat, Meds/Allgs Chart Reviewed, Consent Obtained/Reviewed and Anes Risks/Benef Reviewed Patient Risk: Intermediate Procedure Risk: Intermediate Anesthetic Plan Anesthetic Plan: GA and Agree w/ Assess. and Plan Disposition: Standard PACU
[2025-02-25] VITALS (15 sets, daily range): BP systolic 123–168; BP diastolic 65–99; PULSE 79–118; RESP 15–20; TEMP 36.1–36.6; O2SAT 93–100; BMI 46.4
--- OUTSIDE RECORDS SUMMARY | 2025-02-25 07:56 | XMS_ITS | Clinical Summary ---
Author Organization [facility] ity Address [address] [place] [address] Care Team Providers Care Boiler Blower Name Role Phone Unavailable Primary Care Provider [...]
--- OUTSIDE RECORDS SUMMARY | 2025-02-25 07:56 | XMS_ITS | Patient Health Record ---
Author Organization [facility] Address [address] [place], [place] [id number] Care Team Providers Care Ham Passer Name Role Phone Rex FLOWERS, [facility] Primary Care Provider Ludwin Sanchez [phone] Reason For Referral No Information Plan Of Treatment No Information Insurance Providers Payer Name Payer Address Payer Phone Subscriber Number Group Number Insured Name Patient Relationship to Insured Coverage Start Date Coverage End Date [facility] [address] [address] [place] [address] [id number] Yas Worthington Self - patient is the insured Medical (General) History Surgical History 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
--- OUTSIDE RECORDS SUMMARY | 2025-02-25 07:56 | XMS_ITS ---
Author Organization [facility] Address [address] [place] [address] [place] [phone] Phone Care Team Providers Care Biofuels Production Technician Name Role Phone Eren Mcpherson MD Unavailable Garo Crowell MD Unavailable Megan Guevara RN Unavailable [email or web address] Marija Fair RN Unavailable [email or web address] Vy Summers RN Unavailable [email or web address] Alessandra German RN Unavailable [email or web address] Martha Méndez AUTOMOBILE SEAT COVER INSTALLER Unavailable [phone] Pcp, Unknown Primary Care Provider Unavailabl e [...] Has been unrevealing She was referred to [facility] for additional testing options She is advised to continue current medications and ongoing management per neurology both locally and at [facility] Assessment & Plan (03/16/2021 2:16 PM [...] seen in a local ER; records from [facility] reviewed at the time of this visit [...] seen in a local ER; records from [facility] reviewed at the time of this visit She was treated with Reglan, Benadryl and Toradol She is currently taking ibuprofen with improvement of symptoms She is advised to begin magnesium as discussed I resent her prescription for imitrex to [facility] where this will be less expensive We will reassess in 1 week or sooner with any decline in symptoms We will refer to neurology for their input Assessment & Plan (08/12/2020 9:42 AM EST): Persistent frontal migraine for the last week No injury or trauma prior to onset No vision changes Nonresponsive to [id number] medications that typically provide relief No associated [...] plan to proceed with bariatric surgery at [facility] Preop paperwork completed today She is an acceptable surgical risk Assessment & Plan (11/15/2020 8:04 AM EDT): Ongoing inability to lose weight Admittedly she has not been very active due to issues with migraines She is referred to bariatric surgery at [facility] Contact info given and she is advised [...]
--- NOTE | 2025-02-25 08:00 | PHA.MEDREC ---
Pharmacy Consult ? Medication Reconciliation Pharmacy has reviewed the medication reconciliation done by nursing.
[2025-02-25 08:08] LABS: UPreg QC Valid YES
[2025-02-25] MEDS: Aprepitant 32 MG/4.4 ML VIAL IVPUSH (08:18)
--- NOTE | 2025-02-25 10:29 | MHC.SHP ---
Pre-Procedural Eval Section A - 24 Hr Update-Section A only Date of Service: 02/25/25 The patient is an INPATIENT: Yes The patient has been examined within 24 hours of the surgical procedure. The History & Physical has been completed within 30 days and I have reviewed it.: Yes Section B - Complete if H&P > 30 days Chief Complaint: Morbid obesity Relevant Family History (Specify if Yes): No Relevant Social History: None Present Medications: None Medical History: No relevant PMH History of Previous Operations: No relevant previous surgery Allergies: Allergies Allergy/AdvReac Type Severity Reaction Status Date / Time codeine Allergy Hives Verified 02/10/25 11:13 Review of Systems Sugical H&P ROS: Negative: Constitution, Cardiovascular, Respiratory, Neurological, Psychiatric, Hem-Onc, Allergic/Immunologic, Gastrointestinal, Genitourinary, Musculoskeletal, Integumentary, Endocrine and Eyes/Ears/Nose/Throat Exam Surgical H&P Exam: Normal: HEENT, Normal: Heart, Normal: Lungs, Normal: Extremities, Normal: Abdomen, Normal: Skin and Normal: Neurological Plan Diagnosis/Plan: Unchanged I have reviewed the history and physical and performed a pertinent physical examination on my patient. No changes have occurred unless specified. Time Spent With Patient Time: Total time managing care of this patient today ____ minutes.
--- NOTE | 2025-02-25 10:31 | P.BOP_ITS ---
Brief Operative Note Date of Service: 02/25/25 Pre-op diagnosis: Morbid obesity with comorbidities (see below) Post-op diagnosis: same (& Congenital abdominal adhesions) Procedure: INITIAL PATIENT BMI ON PRESENTATION AT OUR OFFICE: 50.7 kg/m2 LAST BMI BEFORE SURGERY: 45.7 kg/m2 COMORBIDITIES: liver steatosis ?The patient presented to the Weight Management Program with significant obesity that was negatively impacting the patient's comorbidities as listed above.? The program is a phased program with a special focus on preoperative medical weight management to promote substantial weight loss and prepare the patients for the second phase of the program: bariatric surgery. The patient participated in an intensive weekly lifestyle ?intervention and exercise program during which the patient ?has lost between the initial office visit and the last preoperative visit 28.8lbs, or 10% of initial actual body weight. It was deemed appropriate for the patient to now have bariatric surgery. In light of the current Covid-19 pandemic and the well documented strong association of obesity and increased risk of worse outcomes if infected with Covid-19 (REFERENCES: https://pubmed.ncbi.nlm.nih.gov/26805065/ ,? https://pubmed.ncbi.nlm.nih.gov/63834820/ ), any delay in undergoing bariatric surgery may lead to the patient's worsening health condition and increased?risk of more severe Covid-19 disease if infected. In addition a recent?study from [facility] published in [facility] on 07/03/2021 ([email or web address]) found that, among patients with obesity, substantial weight loss achieved with surgery was associated with improved outcomes of COVID-19 infection. The findings suggest that obesity can be a modifiable risk factor for the severity of COVID-19 infection. In addition, the patient met the BMI-criteria for bariatric surgery based on the BMI on initial presentation. The patient should not be penalized for achieving such weight loss because ?it is not sustainable long-term without surgical intervention and it was achieved in preparation for bariatric surgery ?under my direction and based on my published research ([email or web address]).[email or web address] and? https://www.soard.org/article/[email or web address](14)74892-X/pdf ) ?that a 10% preoperative weight loss improves long-term weight loss after surgery and reduces perioperative complications.? Insurance carriers such as [facility] have endorsed my recommendations ?and have included in their policies criteria to include a 10% preoperative weight loss requirement. PROCEDURE: Esophago-gastroscopy, laparoscopic lysis of adhesions, laparoscopic sleeve gastrectomy and laparoscopic gastropexy INDICATIONS: This is a 39 year-old female who was electively scheduled for laparoscopic, possibly open sleeve gastrectomy. The risks and complications of the procedure were discussed with the patient in advance, particularly the possibility of ; pulmonary embolism; staple line leak; bleeding; GERD; cardiac, pulmonary, or renal complications; as well as long-term problems such as insufficient weight loss, vitamin deficiency, strictures, or ulcers. The patient understood all the risks, and was in agreement to proceed with surgery. DESCRIPTION OF PROCEDURE: After informed consent was obtained from the patient, the patient was given preoperative antibiotics, and was transferred to the operating room. After successful induction of general anesthesia, pneumatic compression devices were placed on both lower extremities. An upper endoscopy was performed next. The oropharynx and esophagus appeared to be within normal limits. There was no diaphragmatic hernia present. The stomach was entered. Then after all fluid and air were suctioned and the stomach was fully decompressed, the scope was withdrawn and secured in the mid esophagus. The patient was then prepped and draped in the usual sterile manner, and abd ominal access was established at the right upper quadrant with the Angeles technique. A 12 mm blunt port was inserted, and the abdomen was insufflated with CO2 to a pressure of 15 mmHg. Under direct visualization, additional ports were placed, specifically two 5 mm Versi-step ports to the left upper quadrant, and a 5 mm Versi-Step port to the right upper quadrant. 1% lidocaine plain was used to infiltrate all port sites as well as all fascia defects. Following that, the patient was placed in a steep reverse Trendelenburg position. An additional 5 mm port was placed to the right flank for the Mediflex retractor that was used to retract the left lobe of the liver. The gastro-esophageal fat pad was opened with the ultrasonic device (Thbrittnyerbeindra, Olympus) and the anterior esophagus and hiatus were exposed. The angle of His was opened with the ultrasonic device the fundus of the stomach from any diaphragmatic and splenic attachments. I then opened the gastrocolic ligament between the transverse colon and the greater curvature of the stomach with the ultrasonic device to enter the lesser sac and facilitate the ligation of the short gastric vessels. I started at a mid-point along the greater curvature and using the Thunderbeat, all short gastric vessels were divided all the way to the angle of His until the left brianna was completely dissected at its entirety. I then divided the gastro-colic ligament distally to a distance of about 3-4 cm proximal to the pylorus. There were extensive congenital adhesions between the pancreas and posterior gastric wall. Those were lysed completely with the ultrasonic device. Adhesiolysis took approximately 45 min to complete. The stomach was then divided transversely with two Endo AMRITA-45 purple and three AMRITA-60 articulating purple loads using the TeamRockIA stapler and loads. Every effort was made that the gastric sleeve had a tubular shape and an even caliber throughout. Once the sleeve resection was completed, the staple line of the gastric sleeve was reinforced with Hemoclips. The resected stomach was retrieved without difficulty from the Angeles port. A gastropexy was then performed in order to prevent postoperative GERD and partial gastric volvulus. Several interrupted 2.0 Surgidac sutures were placed between the sleeve's staple line and the previously divided greater omentum and gastro-colic ligament using the Endo-Stitch device. ?An upper endoscopy was performed. There was no narrowing at the GE junction. The scope was easily advanced all the way to the pylorus which was clearly visualized. There was no narrowing anywhere and the sleeve's caliber was even throughout. The sleeve's staple line was inspected and there was no evidence of ischemia, bleeding or dehiscence. At that point the gastroscope was withdrawn from the patient?s mouth while we were decompressing the bowel and the stomach from any remaining air. I looked into the lesser sac to see how the sleeve was situating and it was situating well. There was no bleeding from the staple line, spleen, or short gastric vessels. The Mediflex retractor was removed, and the undersurface of the liver was inspected and there was no bleeding. The patient was placed in supine position. I closed the fascial defect of the 12 mm port site with a figure of eight #1 Polysorb suture. Then 30cc Ropivacaine plain with 10 mg of Dexamethasone were used to infiltrate the fascial closure as well as all skin incisions. At this point, the abdomen was deflated, all ports were removed under direct vision, and no bleeding was noted from any of the port sites. The skin incisions were irrigated with saline and were closed with 4-0 absorbable monofilament sutures. Steri-Strips and OpSites were used to cover all incisions. The patient was extubated and was transferred in stable condition to the recovery room for further care. I was present and performed all guzman parts of the procedure. Ms. Kumar was the first officer and flight instructor. There were no residents to assist with this case. Bruce Quintanilla MD, PhD, FACS Surgeon: Erasto Quintanilla MD Anesthesia: local and other (TAP block) Was an Electric Refrigerator Servicer used for this Procedure?: No Electric Refrigerator Servicer: Vivian Kumar Estimated blood loss (mL): 10 IV fluids (mL): 2,000 Urine output (mL): 0 (No Barros to record output) Pathology: other (1) Stomach, 2) Gastro-esophageal fat pad) Condition: stable Disposition: PACU
--- NOTE | 2025-02-25 10:34 | P.PNGS_ITS ---
Subjective Subjective Date of Service: 02/26/25 Interval history: Feels well. Mild incisional pain. She is tolerating phase 1 bariatric diet Physical Exam 2 Vital Signs: Vital Signs: Last Vital Signs Temp 98 F 02/25/25 08:11 Pulse 118 H 02/25/25 08:11 Resp 18 02/25/25 08:11 BP 136/93 H 02/25/25 08:11 Pulse Ox 96 02/25/25 08:11 O2 Del Method Room Air 02/25/25 08:11 BMI result Body Mass Index 46.4 GI: Inspection: Yes normal to inspection, Yes incision (clean, dry and intact) and Yes obesity Palpation (GI): Soft to palpation Extrem: Right lower extremity: normal to inspection (no calf tenderness) L eft lower extremity: normal to inspection (no calf tenderness) Objective Data Active Medications Hydromorphone HCl (Hydromorphone Hcl 0.5 Mg/0.5 Ml Syringe) 0.25 mg IVPUSH Q5M PRN PRN Reason: Pain, Moderate to Severe (Pain Scale 4-10) Stop: 02/25/25 15:06 Lactated Ringer's (Lr) 1,000 mls @ 100 mls/hr IVCONT .Q10H DALTON Stop: 02/25/25 11:44 Naloxone HCl (Naloxone Hcl 0.4 Mg/Ml Vial) 0.04 mg IVPUSH Q5M PRN PRN Reason: Excessive sedation or RR < 8 Ondansetron HCl (Ondansetron Hcl 4 Mg/2 Ml Vial) 4 mg IVPUSH ONCE PRN PRN Reason: Nausea and Vomiting Stop: 02/25/25 15:06 Labs 02/26/25 06:17 02/26/25 06:17 Labs: Laboratory Results - last 24 hr 02/25/25 07:48 Urine Test NEGATIVE Procedures Date of Service Date of Service: 02/26/25 Progress Note: A&P Assessment and plan (1) Morbid obesity: Status: Acute Assessment and Plan: s/p laparoscopic sleeve gastrectomy, lysis of adhesions and gastropexy Doing well Will check am labs and if OK the patient will be discharged home (2) Steatosis, liver: Status: Acute (3) Congenital intra-abdominal adhesions: Status: Acute (4) S/P laparoscopic sleeve gastrectomy: Status: Acute Time Spent With Patient Time: Total time managing care of this patient today ____ minutes. Quality Stroke Does the patient have a stroke diagnosis?: No VTE Prior VTE?: No VTE Risk Level:: Surgical - moderate VTE Device Contraindication: N/A - Device Ordered VTE Drug Contraindication: Treatment Not Indicated
--- NOTE | 2025-02-25 13:09 | P.DS_ITS ---
DS: Providers Provider Date of Service: 02/26/25 Date of admission: 02/25/25 07:51 Date of discharge: 02/26/25 Primary care physician: Meme Huffman MD DS: Diagnosis Discharge Diagnosis (1) Morbid obesity: Status: Acute (2) Steatosis, liver: Status: Acute (3) Congenital intra-abdominal adhesions: Status: Acute (4) S/P laparoscopic sleeve gastrectomy: Status: Acute DS: Summary Hospital Course Hospital Course: ADMITTING DIAGNOSIS: morbid obesity, liver steatosis, iron deficiency anemia, VAN, depression DISCHARGE DIAGNOSIS: same, s/p laparoscopic sleeve gastrectomy and gastropexy PAST SURGICAL HISTORY:? History of tendonitis History of ovarian cyst PROCEDURE: upper endoscopy, laparoscopic sleeve gastrectomy and gastropexy DISCHARGE SUMMARY: History of Present Illness: The patient is a?39 year-old woman with a BMI of?46.4 kg/m2 and associated co- morbidities as described above. The patient had extensive work-up, lost?24.8 lbs preoperatively and was electively scheduled for laparoscopic, possible open sleeve gastrectomy and gastropexy. Risks and complications of the surgery were discussed with the patient in advance, particularly the possibility of , pulmonary embolism, anastomotic leak, bleeding, bowel injury, GERD, cardiac, renal or pulmonary complications. The patient understood all the risks and was in agreement with the surgical plan. Hospital Course: The patient underwent an uneventful laparoscopic sleeve gastrectomy with gastropexy on the day of admission. Postoperatively, the patient was transferred to the surgical floor. The patient received IV acetaminophen and IV Dilaudid for pain control. Patient was started on bariatric phase 1 diet POD #0. On postopera tive day one, the patient was feeling well without nausea, vomiting, fevers, or tachycardia. The patient had some mild incisional pain and the abdomen was soft.? ? On the morning of postoperative day one, the patient was continued on 1 ounce of water or ice every half hour. During the day, the patient did fairly well, having some incisional pain, but able to ambulate adequately and to tolerate liq uids well. Since the patient is doing well, we decided that the patient was ready to be discharged. The patient was given instructions to follow-up in office next week and to call the office for any fever over 101, persistent abdominal pain, nausea, vomiting, GERD, symptoms of DVT such as calf tenderness, or leg swelling, or pulmonary embolism such as chest pain or shortness of breath.? The patient was also instructed to drink 40-60 ounces of liquids per day using the 1-ounce cups. The patient had been given prescriptions for Tylenol for pain, Zofran prn for nausea, and pantoprazole and carafate previously. The patient was encouraged to ambulate and use the incentive spirometer. The patient was allowed to shower, but no baths, and encouraged to stay active at home. All of these instructions were given to the patient personally. All questions were answered and the patient understood all instructions, the instructions were also given to the patient in print. Time Attestation Discharge Coordination Time (in mins): 30 Quality: Safe Use of Opioids Does Pt have an Active Cancer Diagnosis on the Problem List?: No Quality: Stroke Does the patient have a stroke diagnosis?: No Physical Exam Vital Signs: Vital Signs: Last Vital Signs Temp 97.3 F 02/25/25 12:55 Pulse 111 H 02/25/25 13:07 Resp 17 02/25/25 13:07 BP 155/77 H 02/25/25 13:07 Pulse Ox 97 02/25/25 13:07 O2 Del Method Nasal Cannula 02/25/25 13:07 O2 Flow Rate 2 02/25/25 13:07 BMI result Body Mass Index 46.4 DS: Data Data Completed and Pending Pending studies at discharge: Pending at discharge 02/25/25 12:41 Surgical [PTH] Routine Labs on day of discharge: Laboratory Results - last 24 hr 02/25/25 07:48 Urine Test NEGATIVE Discharge Plan Discharge Anticipated Discharge Date/Time: 02/26/25 10:00 Patient Disposition: Home, Self-Care Discharge Diagnosis: s/p laparoscopic sleeve gastrectomy with gastropexy Referrals: Meme Christian MD [Primary Care Provider, Internal Medicine] - 1 Week Discharge Medications: Continued ondansetron 4 mg tablet,disintegrating 4 mg PO Q12H PRN (Reason: nausea and vomiting) Rx Instructions: Only take one every 12 hours as needed if you have nausea sucralfate 100 mg/mL suspension 10 ml PO BID Qty: 600 2RF pantoprazole 40 mg tablet,delayed release (DR/EC) 40 mg PO DAILY Qty: 90 0RF Discontinued cholecalciferol (vitamin D3) 125 mcg (5,000 unit) capsule 125 mcg PO DAILY Qty: 90 0RF mecobalamin (vitamin B12) 1,000 mcg tablet,disintegrating 1,000 mcg sublingual DAILY Qty: 90 0RF Rx Instructions: place tablet under tongue and allow to dissolve for at least30 secs before swallowing thiamine HCl (vitamin B1) 100 mg tablet 100 mg PO DAILY Qty: 90 0RF polyethylene glycol 3350 17 gram/dose powder 17 g PO DAILY Qty: 238 0RF Rx Instructions: Mix each measuring cup with 8oz of water, Crystal light, or Gatorade zero, or Propel and do 7 measuring cups on 02/23/25 and another 7 measuring cups on 02/24/25 Discharge Orders: Discharge Order (Routine); Ordered 02/26/25 Ordered By: Erasto Quintanilla Activity on Discharge: No heavy lifting Stand Alone Forms: Patient Portal Discharge page Print Language: Turkish Care Plan Goals: weight loss Health Concerns: morbid obesity Plan of Treatment: No tub baths, sex or returning to work until discussed at first post op appointment. No alcohol, tobacco or illegal drug use. Continue to use incentive spirometer hourly while awake. Walk in home for 5- 10 minutes every 2 hours during the first week. Wear abdominal binder with activity. Follow all meal plan instructions from your bariatric surgeon. Review bariatric handbook and call with any questions. Discharge Instructions 1. Please call your doctor or come back to the emergency room should any new symptoms arise. 2. Activity: abstain from alcohol,? limited stair climbing, no bending, no driving, no exercise, no illicit substances, no lifting, no sex, no tub bath, no work. 4. Diet: follow your bariatric surgeon's recommendations for advancing diet. 5. Dressing Change/Wound Care: Your incisions are covered with waterproof dressings. You can shower with these and pat dry. Do not rub over dressings or incisions. If the area is tender, you may apply an ice pack for short intervals (no more than 20 minutes on, followed by at least 20 minutes off). Do not apply heat. Do not use creams, lotions, or topical antibiotics unless instructed to do so by your surgeon. 6. Call your doctor if: - Your temperature exceeds 101.5 F - You experience excessive pain or swelling - You have an unexpected reaction to medication - You have excessive bleeding - You experience continued vomiting/nausea - Your incision begins to separate - Your incision shows signs of infection such as increased redness, swelling, excessive pain, heat, or drainage (light blood or clear fluid is normal) General instructions: No lifting greater than 10 lbs for the next 6 weeks[address] driving within 24 hours of taking narcotic pain medications. If you do not move your bowels in the next 2 days, please take milk of magnesia over the counter. Please follow the post op diet and do not advance your diet until instructed by your surgeon or until you are seen in the office in about 1 week. Please walk around your home every hour or two to prevent blood clots from forming in your legs. You do not need to wake from sleeping to walk. Please sleep in a bed or couch to prevent kinking at the hips and knees. Please take your incentive spirometer (your lung career development coordinator/teacher) home with you and use it for the next few days to prevent pneumonias. You may shower; no hot tubs, baths or swimming pools. Please make sure you are consuming 40-60 ounces of total fluids per day. Avoid all carbonation. Please call the office with any questions or concerns such as increasing abdominal pain, fever, chills, shortness of breath, chest pain, leg pain or swelling, or redness or drainage from your incisions. Do not hesitate to contact the office with any questions at . The patient's medical history has been reviewed and they are considered low risk for post op DVT and therefore DVT prophylaxis is not considered necessary. Travel after surgery was reviewed. The patient has not disclosed any travel plans during the first 30 days after surgery and they have been advised that within the first 30 days after surgery any bus, plane, train or car travel over 2 hours in duration is contraindicated due to the possibility of developing blood clots from immobility. Any travel, needs to include periods of ambulation of 10 minutes in duration every 2 hours.? The patient was instructed to discuss any plans for travel during this period with their bariatric surgeon. Assessment: s/p laparoscopic sleeve gastrectomy Patient Instructions: Laparoscopic Sleeve Gastrectomy (DC) Discharge Date/Time: 02/26/25 09:12
[2025-02-25 13:30] LABS: Hematocrit 34.5 % (37.0-47.0); Hemoglobin 11.0 g/dl (12.0-16.0)
[2025-02-25] MEDS: Lactated Ringers 1,000 ML 100 ML IVCONT ×2 (13:45→21:30)
[2025-02-25 13:46] LABS: Anion Gap 14 (12-20); Blood Urea Nitrogen 8 mg/dL (9-16); Calcium 8.8 mg/dL (8.4-10.2); Carbon Dioxide 24 mmol/L (22-29); Chloride 103 mmol/L (96-108); Creatinine Clr Calc Pharmacy 131.2; Estimated Glomerular Filt Rate > 60; Potassium 4.1 mmol/L (3.3-5.1); Sodium 137 mmol/L (135-145)
[2025-02-25] MEDS: 0.9 % Sodium Chloride Flush 3 ML SYRINGE IVFLUSH (20:07)
[2025-02-26 03:06] VITALS: BP 135/70; PULSE 70; RESP 16; TEMP 36.3; O2SAT 96
[2025-02-26 06:41] LABS: MANUAL DIFF FLAG NO
[2025-02-26 07:00] LABS: Anion Gap 13 (12-20); Blood Urea Nitrogen 7 mg/dL (9-16); Calcium 9.1 mg/dL (8.4-10.2); Carbon Dioxide 24 mmol/L (22-29); Chloride 105 mmol/L (96-108); Creatinine Clr Calc Pharmacy 150.3; Estimated Glomerular Filt Rate > 60; Potassium 4.4 mmol/L (3.3-5.1); Sodium 138 mmol/L (135-145)
[2025-02-26 07:01] LABS: Hematocrit 34.7 % (37.0-47.0); Hemoglobin 10.8 g/dl (12.0-16.0); Imm Gran Abs Auto 0.05 X10*3/uL (0.00-0.03); Imm Gran Pct Auto 0.6 % (0.0-0.4); Lymphocytes Absolute Auto 0.9 X10*3/uL (1.2-4.9); Mean Corpuscular HGB Conc 31.1 g/dl (31.0-35.0); Mean Corpuscular Hemoglobin 23.8 pg (27.0-33.0); Mean Corpuscular Volume 76.4 fL (80.0-98.0); NRBC Abs Auto 0.000 X10*3/uL (0.0-0.012); NRBC Pct Auto 0.0 /100WBC (0.0-0.2); Platelet Count 324 X10*3/uL (160-400); Red Blood Count 4.54 X10*6/uL (4.20-5.50); White Blood Count 9.0 X10*3/uL (4.8-10.8)
[2025-02-26 07:04] VITALS: BP 135/80; PULSE 71; RESP 18; TEMP 36.2; O2SAT 98
[2025-02-26] MEDS: Lactated Ringers 1,000 ML 100 ML IVCONT (07:32)
--- NOTE | 2025-02-26 08:31 | HO.POSTANES ---
Post Anesthesia Evaluation Post Anesthesia Evaluation Date of Service: 02/26/25 Vital Signs: Vital Signs Temp Pulse Resp BP Pulse Ox O2 Del Method 02/26/25 07:04 97.2 F 71 18 135/80 98 Room Air 02/26/25 03:06 97.3 F 70 16 135/70 96 Room Air 02/25/25 23:12 96.9 F 79 18 123/84 97 Room Air Anesthesia: General Mental Status: Awake Pain Control: Satisfactory Nausea/Vomiting: None Hydration: Adequate Anesthesia-Related Issues: No Anes. Related Issues
== END 2025-02-26 09:12 | disposition home or self-care (01) | DRG 403 ==
LOC: HO.SSSA 13:07 → HO.S3 13:51
PROVIDERS: Nurse Practitioner; Physician Assistant Surgical; Admitting Provider Surgery; PCP Internal Medicine; Visit Provider Surgery
PROC: 0DB64Z3 Excision of Stomach, Percutaneous Endoscopic Approach, Vertical (ICD-10-PCS; CPT 43845; principal; 2025-02-25 10:20)
DX: E66.01 Morbid (severe) obesity due to excess calories (principal); Q43.3 Congenital malformations of intestinal fixation; K76.0 Fatty (change of) liver, not elsewhere classified; Z68.42 Body mass index [BMI] 45.0-49.9, adult; Z79.899 Other long term (current) drug therapy
CPT/HCPCS: 36415; 80048; 80053; 80061; 81025; 83036; 83525; 84443; 85014; 85018; 85025; 85610; 85730; 86140; 86850; 86900; 86901; 88304; 88305; 88307; 88342; A4649; C9145; J0131; J0690; J1100; J1171; J1308; J2003; J2250; J2405; J2704; J2795; J3010; J7120

== ENCOUNTER → 2025-02-25 07:51 | Outpatient (BNV) | payer OTHER, SELFPAY | PROVIDERS: Admitting Provider Surgery; PCP Internal Medicine; Visit Provider Surgery | DX: E66.01 Morbid (severe) obesity due to excess calories (principal); K76.0 Fatty (change of) liver, not elsewhere classified; Q43.3 Congenital malformations of intestinal fixation; Z98.84 Bariatric surgery status | CPT/HCPCS: 43659; 43775; 99024 ==

== ENCOUNTER 2025-03-02 10:58 | Outpatient (AMB) | payer OTHER, SELFPAY ==
--- NOTE | 2025-03-02 10:59 | MHC.OFFVISWM ---
VS Expanded 03/02/25 11:11 BP 140/86 H Blood Pressure Location Rt brachial Blood Pressure Position Sitting Pulse 120 H Pulse Source Pulse Oximeter Temp 97.1 F Temperature Source Temporal Artery Scan Pulse Oximetry 98 Oxygen Delivery Method Room Air Height 5 ft 3 in Weight 252 lb 6.4 oz BMI 44.7 Body Fat % 48.8 Body Fat Mass 123.0 Fat Free Mass 129.2 Visceral Fat Rating 15.0 Body Water % 36.6 Body Water Mass 92.4 Muscle Mass/Score 122.6 Basal Metabolic Rate/Score 1,853 Intake Visit Reasons: (OV) PO LSG 02/25/25 Allergies codeine Allergy (Verified 03/02/25 11:14) Hives HPI Comments Details: This?a?39?yo female who is s/p LSG without hiatal hernia repair on?02/25/2025. Presents for 5 day post op visit. Weight today is 252.4 pounds, with a BMI of 44.7. There has been a 34.2 pound weight loss,(initial weight 286.6 pounds) since starting the program on 11/11/2024 reflecting a 11.9 % total body weight loss and a weight loss of 12 pounds since surgery (operative weight 264.4 pounds) reflecting a 4.5 % TBWL since surgery. No complaints of nausea, emesis, abdominal pain or reflux. Positive bowel movement Present meal plan includes: Celebrate rebuild, 1 scoop at 10-12, 2-4, 6-8 30 oz of fluids ? Exercise routine includes: Previously using stationary bike PFSH Medical History Anemia Morbid obesity Surgical History History of esophagogastroduodenoscopy (EGD) History of tendonitis History of ovarian cyst Family History Mother Diabetes Hypertension Father No problems noted. Paternal Grandmother Breast cancer Social History Household Members: Spouse Housing: Apartment Are you a primary workforce investment act career manager to a significant other at home: No Do you presently have visiting nurse or other home services: No Alcohol intake: current Alcohol intake frequency: does not drink Alcohol type: hard liquor Patient Tobacco Use Status: Never used Tobacco e-Cigarette/Vaping Use: Never Used Second Hand Smoke Exposure: No service: No Current occupational status: employed Current occupational exposures/hazards: No Cognitive needs: No Hearing needs: No Vision needs: Yes Physical Exam GI Inspection: Yes incision (Clean, dry, intact.) Assessment & Plan Assessment & Plan (1) S/P laparoscopic sleeve gastrectomy: Code(s): Z98.84 - Bariatric surgery status Category: Surgical Plan: POD 5 s/p LSG on 02/25/[address] Quintanilla Weight loss prior to surgery was 22.2 pounds or 7.7 % TBWL. Original weight on 11/11/2024 was 286.6 pounds and op weight was 264.4 pounds. Be sure to text Dr Quintanilla exactly 1 week after surgery your weight from your home scale so he can adjust your meal plan. Continue meal plan until f/u [place] in 2 weeks May shower, no submersion in bath for another week Continue abdominal binder with activity and exercise for the next 2 weeks. Exercise prior to surgery was stationary bike and may resume No abdominal exercises for 6 weeks post operatively Will be emailed link to post op video for review Reminded of the pace of drinking, 2 mL per minute, 1 oz/15 min.
[2025-03-02 11:11] VITALS: BP 140/86; PULSE 120; TEMP 36.2; O2SAT 98; BMI 44.7
--- OUTSIDE RECORDS SUMMARY | 2025-03-02 11:55 | XMS_ITS | Encounter Summary ---
Author Organization [facility] Address [address] [place] [id number] Phone Care Team Providers Care Frame Stripper And Crusher Name Role Phone Eren Mcpherson MD Unavailable Garo Crowell MD Unavailable Megan Guevara RN Unavailable [email or web address] Marija Fair RN Unavailable [email or web address] Greer Beltran YARD SUPERVISOR Primary Care Provider [phone] Vy Summers RN Unavailable [email or web address] Eren Mcpherson MD Unavailable Alessandra German RN Unavailable [email or web address] Martha Méndez YARD SUPERVISOR Unavailable [phone] Marc Meneses DO Unavailable Pcp, Unknown Primary Care Provider Unavailabl e Encounter Details Date Type Department Care Team (Late st Contact Info) Description 08/26/2020 Procedure Pass Merged With [facility] - Radiology - [place] [address] [place] [address] Social History Tobacco Use Types Packs/Day Years Used Date Smoking Tobacco: Former Smokeless Tobacco: Never Alcohol Use Standard Drinks/Week Comments Yes 0 (1 standard drink = 0.6 oz pur e alcohol) social Comments Unknown Sex and Gender Information Value Date Recorded Sex Assigned at Female 04/11/2020 12:46 PM EDT Legal Sex Female 7:01 PM EST Gender Identity Female 04/11/2020 12:46 PM EDT Sexual Orientation Not on file documented as of this encounter Plan of Treatment Not on file documented as of this encounter Visit Diagnoses Not on filedocumented in this encounter Additional Health Concerns Assessment Noted Time PHQ-2 Depression Total Score: 0 08/12/19 21 9:27 AM EST documented as of this encounter Care Teams Frame Stripper And Crusher Relationship Specialty Start Date End Date Greer Beltran CNP [address] [place] [id number] [email or web address] PCP - General Family Medicine 08/11/20 12/22/24 Pcp, Unknown PCP - General 12/23/24 Eren Mcpherson MD [address] [place] [phone] [email or web address] Provider 08/07/18 Garo Crowell MD [address] [place] [id number] [email or web address] Primary Oncologist Medical Oncology 06/21/20 Megan Guevara RN [address] [place] [id number] [email or web address] Primary Infusion Nurse 08/05/20 Marija Fair RN [address] [place] [id number] [email or web address] Infusion Nurse 08/09/20 Vy Summers RN [address] [place] [id number] [email or web address] Nurse Navigator Oncology 10/11/20 Eren Mcpherson MD [address] [place] [address] [email or web address] Assigned Provider 12/11/20 09/10/21 Aelssandra German RN [address] [place] [id number] [email or web address] Associate Infusion Nurse 05/16/21 Martha Méndez CNP [address] [place] [id number] [email or web address] Oncology 05/22/21 Marc Meneses DO [address] [place] [id number] Insurance Assigned Provider 12/15/22 04/13/23 documented as of this encounter Additional Source Comments The information contained in this document represents components of the legal health record. It is not the complete legal health record.[facility]
--- OUTSIDE RECORDS SUMMARY | 2025-03-02 11:55 | XMS_ITS | Patient Health Record ---
Author Organization [facility] Address [address] [place], [place] [id number] Care Team Providers Care Package Winder Name Role Phone Rex FLOWERS, [facility] Primary Care Provider Ludwin Sanchez [phone] Reason For Referral No Information Plan Of Treatment No Information Insurance Providers Payer Name Payer Address Payer Phone Subscriber Number Group Number Insured Name Patient Relationship to Insured Coverage Start Date Coverage End Date [facility] [address] [address] [place] [address] [id number] Yas Worthington Self - patient is the insured Medical (General) History Surgical History 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
--- OUTSIDE RECORDS SUMMARY | 2025-03-02 11:55 | XMS_ITS | Clinical Summary ---
Author Organization [facility] ity Address [address] [place] [address] Care Team Providers Care Plating Technician Name Role Phone Unavailable Primary Care Provider [...]
--- OUTSIDE RECORDS SUMMARY | 2025-03-02 11:55 | XMS_ITS | Clinical Summary ---
Author Organization [facility] Address [address] [facility] [address] [place] [address] Phone Care Team Providers Care Material Scheduler Name Role Phone Eren Mcpherson MD Unavailable Garo Crowell MD Unavailable Megan Guevara RN Unavailable BRONWYN [email or web address] Marija Fair RN Unavailable GISELLE [email or web address] Vy Summers RN Unavailable TRAMAINE [email or web address] Alessandra German RN Unavailable Marisabel [email or web address] Martha Méndez OFFICE MAIL CLERK Unavailable [phone] Pcp, Unknown Primary Care Provider Unavailabl e Allergies Active Allergy Reactions Criticality Noted Date Comments Nortriptyline Unknown 03/08/2021 Prednisone 12/01/2020 Other reaction(s): dizziness Medications No known medications Active Problems Problem Noted Date Diagnosed Date [...] Pap smear for cervical cancer screening 03/16/20 Assessment & Plan (03/16/2021 2:17 PM EDT): [...] Has been unrevealing She was referred to [facility] for additional testing options She is advised to continue current medications and ongoing management per neurology both locally and at [facility] Assessment & Plan (03/16/2021 2:16 PM EDT): [...] seen in a local ER; records from [facility] reviewed at the time of this visit [...] seen in a local ER; records from [facility] reviewed at the time of this visit She was treated with Reglan, Benadryl and Toradol She is currently taking ibuprofen with improvement of symptoms She is advised to begin magnesium as discussed I resent her prescription for imitrex to [facility] where this will be less expensive We will reassess in 1 week or sooner with any decline in symptoms We will refer to neurology for their input Assessment & Plan (08/12/2020 9:42 AM EST): Persistent frontal migraine for the last week No injury or trauma prior to onset No vision changes Nonresponsive to ewla-mdy-bkmdzfi medications that typically provide relief No associated [...] plan to proceed with bariatric surgery at [facility] Preop paperwork completed today She is an acceptable surgical risk Assessment & Plan (11/15/2020 8:04 AM EDT): Ongoing inability to lose weight Admittedly she has not been very active due to issues with migraines She is referred to bariatric surgery at [facility] Contact info given and she is advised to call today Assessment & Plan (09/29/2020 8:52 AM EDT): Wt Readings from Last 3 Encounters: 09/29/20 120.2 kg (265 lb) 08/12/20 117.8 kg (259 lb 11.2 oz) 08/12/20 117.9 kg (260 lb) We will refer to bariatric surgery for discussion of weight loss Resolved Problems Problem Noted Date Diagnosed Date [...] will proceed with diagnostic mammogram and ultrasound Encounters Date Type Department Care Team Description 01/21/2025 Orders Only [facility] [address] [place] [address] Martha Méndez CNP from Last 3 Months Immunizations Immunization Administration Dates Next Due COVID-19 (Pre-04/29) Moderna Vaccine, mRNA, PF 0 12/20/2020,11/19/2020 Tdap 02/27/2013 Family History Medical History Relation Comments Other Father Spinal Disease Breast cancer Mother Dx at 50s Diabetes Mother Hyperlipidemia Mother Hypertension Mother FH: Hypertension Obesity Mother Panic disorder Mother Anemia Unspecified 1 ? GrandMother Throat cancer Unspecified 2 ? GrandFather Relation Status Comments Father Mother Unspecified 1 Unspecified 2 Social History Tobacco Use Types Packs/Day Years Used Date Smoking Tobacco: Former Cigarettes 0.5 5 2 002 - 2007 Smokeless Tobacco: Former Tobacco Cessation:Counseling Given: No Alcohol Use Standard Drinks/Week Comments Yes 0 (1 standard drink = 0.6 oz pur e alcohol) social Child or Family Care Answer Date Record ed Do you have problems with on e of the following making it difficult for you to work, study, or receive health care? No 06/15/2021 Education Answer Date Recorded Are you interested in more education? Not on charles e 06/17/2023 Are you concerned about learning? Not on file 06/17/2023 No 06/17/2023 No 06/17/2023 Food Answer Date Recorded Within the past 6 months we worried whether our food would run out before we got money to buy more. Never True 06/15/2021 Within the past 6 months the food we bought just didn't last and we didn't have enough money to get more. Never True Residential Stability Answer Date Recor ded What is your housing situation today? I have brynn sing 06/15/2021 How many times have you move d in the past 12 months? Zero (I did not move) 06/15/2021 Paying for Meds Answer Date Recorded Do you have trouble paying for medicines? No 06/15/2021 Paying Utility Bills Answer Date Record ed Do you have trouble paying your heating or elect ricity bill? No 06/15/2021 Transportation Answer Date Recorded Has the lack of transportati on kept you from medical appointments or from getting medications? No 06/15/2021 Unemployment Answer Date Recorded Are you currently unemployed or working on a part-time or temporary basis, and looking for work? No 06/15/2021 Digital Access Answer Date Recorded No 11/30/2022 No 11/30/2022 No 11/30/2022 Reliable internet access at home? Not on file 11/30/2022 Device with a working camera? Not on file Comments Unknown Sex and Gender Information Value Date Recorded Sex Assigned at Female 04/11/2020 12:46 PM EDT Legal Sex Female 7:01 PM EST Gender Identity Female 04/11/2020 12:46 PM EDT Sexual Orientation Not on file Last Filed Vital Signs Vital Sign Reading Time Taken Comments Blood Pressure 130/80 12/14/2021 8:14 AM EDT Pulse 92 12/14/2021 8:14 AM EDT Temperature 35.7 C (96.2 F) 11/28/2021 7:45 AM EDT Respiratory Rate 18 11/28/2021 7:45 AM EDT Oxygen Saturation 98% 12/14/2021 8:14 AM EDT Inhaled Oxygen Concentration - - Weight 118.8 kg (262 lb) 12/14/2021 8:14 AM EDT Height 157.8 cm (5' 2.13 ) 12/14/2021 8:14 AM ED T Body Mass Index 47.72 12/14/2021 8:14 AM EDT Plan of Treatment Health Maintenance Due Date Last Done Comments SMOKING Hx and SMOKELESS TOBACCO SCREENING 1997 DEPRESSION SCREENING 06/15/2022 06/15/2021 Adult Td,Tdap Booster 02/27/2023 02/27/2013 COVID-19 VACCINE (3 - 2023-2 5 season) 2024 12/20/2020, 11/19/2020 PAP SMEAR 03/16/2024 03/16/2021, 03/16/2021, 04/06/2016 MAMMOGRAM 2024 HIV ONE-TIME SCREENING (18-6 5 YEARS) Completed 02/16/2021 HEPATITIS C SCREENING Completed 06/08/2021 , 02/16/2021 HEPATITIS A VACCINES Aged Out No long er eligible based on patient's age to complete this topic HIB VACCINES Aged Out No longer eligi ble based on patient's age to complete this topic MENINGOCOCCAL VACCINES (ACWY) Aged Out No longer eligible based on patient's age to complete this topic MENINGOCOCCAL VACCINES (B) Aged Out N o longer eligible based on patient's age to complete this topic PNEUMOCOCCAL VACCINES (0-49 years) Aged Out No longer eligible b ased on patient's age to complete this topic Medical Devices Not on file Procedures Procedure Name Priority Date/Time Associated Diagnosis Comments PAP TEST Routine 03/16/2021 10:28 AM EDT HEPATITIS C ANTIBODY, QUALITATIVE Routine 02/16/2021 8:12 AM EDT Encounter for hepatitis C screening test for low risk patient from Last 3 Months or Most Recently Relevant to Health Maintenance Results * Pap Smear (03/16/2021 10:28 AM EDT) 03/16/2021 10:2 8 AM EDT 03/17/2021 10:28 AM EDT Narrative SEE NARRATIVE - 03/30/2021 8:43 [place] [address] Sericulturist: Ayden Morel MD DRILLING FIELD OPERATOR Cytology Report FINAL DIAGNOSIS A. CERVICAL, LIQUID BASED SPECIMEN: SPECIMEN ADEQUACY: Satisfactory for evaluation; transformation zone present. INTERPRETATION: NEGATIVE FOR INTRAEPITHELIAL LESION OR MALIGNANCY. Reactive changes. Coccobacilli consistent with shift in delfina This specimen was analyzed by the automated ThinPrep Imaging System (Itineris.) and manually rescreened by a soap mixer and/or pathologist. Electronically Signed Out By: MD Cyndi Sandhu CT(ASCP) By his/her signature above, the pathologist listed as making the Final Diagnosis certifies that he/she has personally reviewed this case and confirmed or corrected the diagnosis. The Pap test is a screening test primarily for squamous cancers and precursors and has associated false-negative and false-positive results. New technologies such as liquid-based preparations may decrease but will not eliminate all false-negative results. Regular sampling and follow-up of unexplained clinical signs and symptoms are recommended to minimize false negative results. PROCEDURES/ADDENDA HPV Testing Requested from Pap Exam Ordered Date: 03/24/2021 Testing for HPV has been initiated and will be reported as a laboratory result. HPV Testing Requested from Pap Exam Ordered Date: 03/30/2021 Testing for HPV has been initiated and will be reported as a laboratory result. CLINICAL HISTORY Date of Last Menstrual Period: 03/08/21 Other Clinical Conditions: Routine: Z12.4 SPECIMEN SOURCE A: CERVICAL, LIQUID BASED SPECIMEN GROSS DESCRIPTION One ThinPrep vial received from which a single Pap-stained slide was prepared. Processing and cytotech screening of this specimen performed at [facility], [address] [place], [place] [id number]. Professional services provided by [facility] [place] [address]. Sonia Ordaz MD, Banquet Food Server Patient Name: YAS WORTHINGTON : 1985 (Age: 35) Sex: F Institution: [facility] Location: [facility]ML[facility] Date of Collection: 03/16/2021 Date of Reported: 03/30/2021 08:43 Ordered By: Greer Perez UPHOLSTERY CUTTER Copy To: us Greer Beltran CNP CYTOLOGY ORDERABLES Final Re sult Performing Organization Address City/State/[facility] Co de Phone Number SEE NARRATIVE * Hepatitis C antibody, qualitative (02/16/2021 8:12 AM EDT) HCV ANTIBODY Non-Reacti ve Non-Reacti ve [facility] Blood 02/16/2021 8:12 AM EDT 02/16/2021 8:23 AM EDT Greer Beltran CNP LAB BLOOD ORDERABLES Final R esult Performing Organization Address City/[facility]/ZIP Co de Phone Number [facility] [address] [address], [facility] from Last 3 Months or Most Recently Relevant to Health Maintenance Insurance [facility] CARE FAMILY A[facility] FAM[facility] FAMILY [facility] CARE FAMILY ACO [facility] MY CARE FAMILY ACO [facility]ARE FAMILY A[facility] CARE FAMILY ACO [facility] MY CARE FAMILY ACO [facility] MY CARE FAMILY ACO Care Teams Material Scheduler Relationship Specialty Start Date End Date Pcp, Unknown PCP - General 12/23/24 Eren Mcpherson MD [address] [facility] [address] [place] [address] [email or web address] Historical LMR Provider 08/07/18 Garo Crowell MD [address] [place] [address] [email or web address] Primary Oncologist Medical Oncology 06/21/20 Megan Guevara, JOANNE [address] [place] [address] [email or web address] Primary Infusion Nurse 08/05/20 Marija Fair RN [address] [place] [phone] [email or web address] Associate Infusion Nurse 08/09/20 Vy Summers, JOANNE [address] [place] [address] [email or web address] Nurse Navigator Oncology 10/11/20 Alessandra German, JOANNE [address] [place] [id number] [email or web address] Associate Infusion Nurse 05/16/21 Martha Méndez OFFICE MAIL CLERK [address] [place] [id number] [email or web address] Oncology 05/22/21 Additional Source Comments The information contained in this document represents components of the legal health record. It is not the complete legal health record.[facility]
--- OUTSIDE RECORDS SUMMARY | 2025-03-02 11:55 | XMS_ITS ---
Author Organization [facility] Address [address] [place] [address] [place] [phone] Phone Care Team Providers Care Instrument Repairer Steam Plant Name Role Phone Eren Mcpherson MD Unavailable Garo Crowell MD Unavailable Megan Guevara RN Unavailable [email or web address] [email or web address] Marija Fair RN Unavailable GISELLE [email or web address] Vy Summers RN Unavailable TRAMAINE [email or web address] Alessandra German RN Unavailable Marisabel [email or web address] Martha Méndez ART INSTRUCTOR Unavailable [phone] Pcp, Unknown Primary Care Provider Unavailabl e [...] Has been unrevealing She was referred to [facility] for additional testing options She is advised to continue current medications and ongoing management per neurology both locally and at [facility] Assessment & Plan (03/16/2021 2:16 PM EDT): [...] seen in a local ER; records from [facility] reviewed at the time of this [...] seen in a local ER; records from [facility] reviewed at the time of this visit She was treated with Reglan, Benadryl and Toradol She is currently taking ibuprofen with improvement of symptoms She is advised to begin magnesium as discussed I resent her prescription for imitrex to [facility] where this will be less expensive We will reassess in 1 week or sooner with any decline in symptoms We will refer to neurology for their input Assessment & Plan (08/12/2020 9:42 AM EST): Persistent frontal migraine for the last week No injury or trauma prior to onset No vision changes Nonresponsive to [id number] medications that typically provide relief No associated [...] plan to proceed with bariatric surgery at [facility] Preop paperwork completed today She is an acceptable surgical risk Assessment & Plan (11/15/2020 8:04 AM EDT): Ongoing inability to lose weight Admittedly she has not been very active due to issues with migraines She is referred to bariatric surgery at [facility] Contact info given and she is [...]
== END 2025-03-02 12:06 | disposition home or self-care (01) ==
PROVIDERS: PCP Internal Medicine; Visit Provider Physician Assistant Surgical
DX: Z98.84 Bariatric surgery status (principal)
CPT/HCPCS: 99024

== ENCOUNTER → 2025-03-02 10:58 | Outpatient (BNVA) | payer OTHER, SELFPAY | PROVIDERS: PCP Internal Medicine; Visit Provider Physician Assistant Surgical | DX: Z98.84 Bariatric surgery status (principal) | CPT/HCPCS: 99212 ==

== ENCOUNTER 2025-03-04 08:13 | Outpatient (AMB) | payer OTHER, SELFPAY ==
--- NOTE | 2025-03-04 08:00 | MHC.WMTHER ---
Intake Intake Visit Reasons: TV PO LSG 02/25/25 Allergies codeine Allergy (Verified 03/23/25 14:14) Hives [facility] Medical History BMI 50.0-59.9, adult Anemia Morbid obesity Surgical History Hx of bariatric surgery History of esophagogastroduodenoscopy (EGD) History of tendonitis History of ovarian cyst Family History Mother Diabetes Hypertension Father No problems noted. Paternal Grandmother Breast cancer Social History Household Members: Spouse Housing: Apartment Are you a primary coronary care unit nurse to a significant other at home: No Do you presently have visiting nurse or other home services: No Alcohol intake: current Alcohol intake frequency: does not drink Alcohol type: hard liquor Patient Tobacco Use Status: Never used Tobacco e-Cigarette/Vaping Use: Never Used Second Hand Smoke Exposure: No service: No Current occupational status: employed Current occupation: Billing at [employer] Current occupational exposures/hazards: No Sexual orientation: Straight/Heterosexual Gender identity: Female Cognitive needs: No Hearing needs: No Vision needs: Yes Behavioral Health Assessment Weight Management Therapy Therapy Notes Details Subjective: The patient underwent weight loss surgery on 02/25/2025. Her weight on the day of surgery was 260 lbs, and today she reports a weight of 249 lbs. She denies any pain or complications during her recovery and states she is tolerating the liquid diet without difficulty. She describes her mood as stable and reports having support from her . She denies experiencing hunger but notes that she does have thoughts about food, particularly finding it challenging when her is eating in her presence. Objective: The patient presents for a behavioral health post-operative follow-up visit. A guided emotional check-in was conducted to assess her current functioning, recovery, mood, and emotional state. Psychoeducation was provided on the emotional and psychological adjustments commonly experienced after bariatric surgery. We also focused on distinguishing between hunger and cravings or food thoughts, exploring possible reasons for these experiences, and strategies to work on her mindset. Emphasis was placed on becoming mindful of her physical and mental needs during these times while staying on track. The importance of adhering to the Weight Management Program (WMP) providers' instructions was emphasized, including the pace of drinking and following the meal and exercise plan. Tips and recommendations for long-term success were also discussed. Program resources were provided, and the patient was invited to join our Facebook group to stay informed about ongoing events and activities. Assessment/Response: Mental status: WNL Risk reported/identified: None Food/Weight/Diet Expectations of change PT started the program on 11/11/2024 at 287 lbs The most recent weight recorded on 12/17/2024 was 276 lbs. The Initial Goal was to lose 10% of her weight before surgery, which is approximately 27 pounds. Ultimate weight goal: 260 lbs. before surgery. Recent weight 01/16/2025: 271Lbs Weight on day of surgery 02/25/25: 260Lbs PO weight 03/04/2025: 249Lbs PT's target weight goal: 150Lbs for now. PT is implementing the following: Current meal plan: Liquid plan Exercise plan: none yet Assessment & Plan Assessment & Plan (1) Adjustment disorder: Code(s): F43.20 - Adjustment disorder, unspecified (2) Status post bariatric surgery: Code(s): Z98.84 - Bariatric surgery status Plan F/up in 3-4 weeks for post-op support. Next arnaldo: 03/29/25 at 9am, video Telehealth Telehealth Telehealth Platform: [facility] Location of provider rendering services: other (Home office. [place], [place]) Location of patient: address on file Patient Identification confirmed using: Name, : Yes Telehealth method: video Patient verbally consented to treatment: Yes Patient verbally consented to billing insurance company: Yes Patient informed of any privacy concerns related to visit: Yes Minutes spent on Phone/Video with Pt.: 30 Coding Level of Care Code Established Pt Tele Psytx 30 mins ([id number]) Patient Type Established Diagnoses Adjustment disorder F43.20 Status post bariatric surgery Z98.84 Time Spent (min) 30
--- OUTSIDE RECORDS SUMMARY | 2025-03-04 08:36 | XMS_ITS | Encounter Summary ---
Author Organization [facility] Address [address] [place] [address] Phone Care Team Providers Care Ham Boner Name Role Phone Eren Mcpherson MD Unavailable Garo Crowell MD Unavailable Megan Guevara RN Unavailable BRONWYN [email or web address] Marija Fair RN Unavailable GISELLE [email or web address] Greer Beltran FINANCIAL WELLNESS COACH Primary Care Provider [phone] Vy Summers RN Unavailable TRAMAINE [email or web address].[facility] Erne Mcpherson MD Unavailable Alessandra German RN Unavailable Marisabel [email or web address] Martha Méndez FINANCIAL WELLNESS COACH Unavailable [phone] Marc Meenses DO Unavailable Pcp, Unknown Primary Care Provider Unavailabl e Encounter Details Date Type Department Care Team (Late st Contact Info) Description 08/26/2020 Procedure Pass [facility] - [place] [address] [place] [address] Social History Tobacco Use Types Packs/Day Years [...] documented as of this encounter Care Teams Ham Boner Relationship Specialty Start Date End Date Greer Beltran CNP [address] [place] [address] [email or web address] PCP - General Family Medicine 08/11/20 12/22/24 Pcp, Unknown PCP - General 12/23/24 Eren Mcpherson MD [address] [place] [phone] COLT@[email or web address] Historical LMR Provider 08/07/18 Garo Crowell MD [address] [place] [phone] [email or web address] Primary Oncologist Medical Oncology 06/21/20 Megan Guevara RN [address] [place] [phone] [email or web address] Primary Infusion Nurse 08/05/20 Marija Fair RN [address] [place] [phone] [email or web address] Associate Infusion Nurse 08/09/20 Vy Summers RN [address] [place] [phone] LAWANDA@[email or web address] Nurse Navigator Oncology 10/11/20 Eren Mcpherson MD [address] [place] [address] [email or web address] Insurance Assigned Provider 12/11/20 09/10/21 Alessandra German RN [address] [place] [phone] [email or web address] Associate Infusion Nurse 05/16/21 Martha Méndez CNP [address] [place] [phone] [email or web address] Oncology 05/22/21 Marc Meneses DO [address] [place] [phone] Insurance Assigned Provider 12/15/22 04/13/23 documented as of this encounter Additional Source Comments The information contained in this document represents components of the legal health record. It is not the complete legal health record.[facility]
--- OUTSIDE RECORDS SUMMARY | 2025-03-04 08:36 | XMS_ITS | Clinical Summary ---
Author Organization [facility] it[facility] Address [address] [place] [address] Care Team Providers Care Machine Load Clerk Name Role Phone Unavailable Primary Care Provider [...]
--- OUTSIDE RECORDS SUMMARY | 2025-03-04 08:36 | XMS_ITS ---
Author Organization [facility] Address [address] [place] [address] [place] [address] Phone Care Team Providers Care Fourth Hand Name Role Phone Eren Mcpherson MD Unavailable Garo Crowell MD Unavailable Megan Guevara RN Unavailable BRONWYN [email or web address] Marija Fair RN Unavailable GISELLE [email or web address] Vy Summers RN Unavailable TRAMAINE [email or web address] Alessandra German RN Unavailable Marisabel [email or web address] Martha Méndez CLIN TECH Unavailable [phone] Pcp, Unknown Primary Care Provider Unavailabl e [...] Has been unrevealing She was referred to [facility] for additional testing options She is advised to continue current medications and ongoing management per neurology both locally and at [facility] Assessment & Plan (03/16/2021 2:16 PM [...] seen in a local ER; records from [facility] reviewed at the time of this visit [...] seen in a local ER; records from [facility] reviewed at the time of this visit She was treated with Reglan, Benadryl and Toradol She is currently taking ibuprofen with improvement of symptoms She is advised to begin magnesium as discussed I resent her prescription for imitrex to [facility] where this will be less expensive We will reassess in 1 week or sooner with any decline in symptoms We will refer to neurology for their input Assessment & Plan (08/12/2020 9:42 AM EST): Persistent frontal migraine for the last week No injury or trauma prior to onset No vision changes Nonresponsive to wyum-ivl-ifircud medications that typically provide relief No associated [...] plan to proceed with bariatric surgery at [facility] Preop paperwork completed today She is an acceptable surgical risk Assessment & Plan (11/15/2020 8:04 AM EDT): Ongoing inability to lose weight Admittedly she has not been very active due to issues with migraines She is referred to bariatric surgery at [facility] Contact info given and she is advised [...]
--- OUTSIDE RECORDS SUMMARY | 2025-03-04 08:36 | XMS_ITS | Clinical Summary ---
Author Organization [facility] Address [address] [place] [address] Phone Care Team Providers Care Dynamometer Tester Name Role Phone Eren Mcpherson MD Unavailable Garo Crowell MD Unavailable Megan Guevara RN Unavailable [email or web address] Marija Fair RN Unavailable [email or web address] Vy Summers RN Unavailable TRAMAINE [email or web address] Alessandra German RN Unavailable Marisabel [email or web address] Martha Méndez ACCOUNT INFORMATION CLERK Unavailable [phone] Pcp, Unknown Primary Care Provider Unavailabl e [...] Has been unrevealing She was referred to [facility] for additional testing options She is advised to continue current medications and ongoing management per neurology both locally and at [facility] Assessment & Plan (03/16/2021 2:16 [...] seen in a local ER; records from [facility] reviewed at the time of this visit [...] seen in a local ER; records from [facility] reviewed at the time of this visit She was treated with Reglan, Benadryl and Toradol She is currently taking ibuprofen with improvement of symptoms She is advised to begin magnesium as discussed I resent her prescription for imitrex to [facility] where this will be less expensive We will reassess in 1 week or sooner with any decline in symptoms We will refer to neurology for their input Assessment & Plan (08/12/2020 9:42 AM EST): Persistent frontal migraine for the last week No injury or trauma prior to onset No vision changes Nonresponsive to gike-jua-jhfrvqv medications that typically provide relief No associated [...] plan to proceed with bariatric surgery at [facility] Preop paperwork completed today She is an acceptable surgical risk Assessment & Plan (11/15/2020 8:04 AM EDT): Ongoing inability to lose weight Admittedly she has not been very active due to issues with migraines She is referred to bariatric surgery at [facility] Contact info given and she is advised [...] Department Care Team Description 01/21/2025 Orders Only [facility] [place] at [facility] [address] [place] [id number] Martha Méndez CNP from Last 3 Months [...] SMEAR 03/16/2024 03/16/2021, 03/16/2021, 04/06/2016 MAMMOGRAM 2024 INFLUENZA VACCINE (#1) 2025 HIV ONE-TIME SCREENING (18-6 5 YEARS) Completed [...] SEE NARRATIVE - 03/30/2021 8:43 [place] [address] Cable Tester: Ayden Morel MD FORMULATOR Cytology Report FINAL DIAGNOSIS A. CERVICAL, LIQUID BASED SPECIMEN: SPECIMEN ADEQUACY: Satisfactory for evaluation; transformation zone present. INTERPRETATION: NEGATIVE FOR INTRAEPITHELIAL LESION OR MALIGNANCY. Reactive changes. Coccobacilli consistent with shift in delfina This specimen was analyzed by the automated ThinPrep Imaging System ([employer] and manually rescreened by a inside barrel polisher and/or pathologist. Electronically Signed Out By: MD [...] cytotech screening of this specimen performed at [facility], [address] [place] [address]. Professional services provided by [facility] [place] [address]. Sonia Ordaz MD, Mailroom Coordinator Patient Name: YAS WORTHINGTON : 1985 (Age: 35) Sex: F Institution: [facility] Location: [facility] Date of Collection: 03/16/2021 Date of Reported: 03/30/2021 08:43 Ordered By: Greer Perez EARLY INTERVENTION SPECIALIST Copy To: us Greer Beltran CNP CYTOLOGY ORDERABLES Final Re sult Performing Organization Address City/[facility] Co de Phone Number SEE NARRATIVE * Hepatitis C antibody, qualitative (02/16/2021 8:12 AM EDT) HCV ANTIBODY Non-Reacti ve Non-Reacti ve [facility] Blood 02/16/2021 8:12 AM EDT 02/16/2021 8:23 AM EDT Greer Beltran CNP LAB BLOOD ORDERABLES Final R esult Performing Organization Address City/State/[facility] Co de Phone Number [address] [address], [facility] from Last 3 Months or Most Recently Relevant to Health Maintenance Insurance [facility] [employer] FAMILY [employer]CO [facility] [facility] [employer] FAM[employer]CO [facility] FAMILY [employer]CO Care Teams Dynamometer Tester Relationship Specialty Start Date End Date Pcp, Unknown PCP - General 12/23/24 Eren Mcpherson MD [address] [place] [address] [email or web address] Historical LMR Provider 08/07/18 Garo Crowell MD [address] [place] [id number] [email or web address] Primary Oncologist Medical Oncology 06/21/20 Megan Guevara, JOANNE [address] [place] [phone] [email or web address] Primary Infusion Nurse 08/05/20 Marija Fair RN [address] [place] [phone] [email or web address] Associate Infusion Nurse 08/09/20 Vy Summers, JOANNE [address] [place] [phone] [email or web address] Nurse Navigator Oncology 10/11/20 Alessandra German, JOANNE [address] [place] [id number] [email or web address] Associate Infusion Nurse 05/16/21 Martha Méndez ACCOUNT INFORMATION CLERK [address] [place] [place] [phone] [email or web address] Oncology 05/22/21 Additional Source Comments The information contained in this document represents components of the legal health record. It is not the complete legal health record.[facility]
--- OUTSIDE RECORDS SUMMARY | 2025-03-04 08:37 | XMS_ITS | Patient Health Record ---
Author Organization [facility] Address [address] [place], [place] [id number] Care Team Providers Care Creative Services Writer Name Role Phone Rex FLOWERS, [facility] Primary Care Provider Ludwin Sanchez [phone] Reason For Referral No Information Plan Of Treatment No Information Insurance Providers Payer Name Payer Address Payer Phone Subscriber Number Group Number Insured Name Patient Relationship to Insured Coverage Start Date Coverage End Date [facility] [address] [address] [place] [address] [id number] Yas Worthington Self - patient is the insured Medical (General) History Surgical History 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
== END 2025-03-04 08:47 | disposition home or self-care (01) ==
PROVIDERS: PCP Internal Medicine; Visit Provider Counselor Mental Health
DX: F43.20 Adjustment disorder, unspecified (principal); Z98.84 Bariatric surgery status
CPT/HCPCS: 90832

== ENCOUNTER 2025-03-23 13:26 | Outpatient (AMB) | payer OTHER, SELFPAY ==
--- NOTE | 2025-03-23 13:41 | MHC.OFFVIS ---
Vital Signs 03/23/25 13:42 Height 5 ft 3 in Weight 247 lb BMI 43.7 BP 118/72 Intake Visit Reasons: irregular menses/do not RS Principle Software Engineer Required: No Information Interpreted: non-clinical & clinical Adviser Sales: Adviser Sales Present (Leana Phillips MORENAViri) Accompanied by: Self / Same As Patient Allergies codeine Allergy (Verified 03/23/25 14:14) Hives Is last menstrual period known: No (mirena) HPI Comments Details: Presenting complaining of prolonged heavy menstrual cycles associated with passage of blood clots and pelvic cramping. The patient then Mirena IUD inserted 5 years ago and her menstrual cycles is not improve Last mammogram in 12/30 was BI-RADS 1 Last co testing was many years ago REPLACED BY [facility] Medical History BMI 50.0-59.9, adult Anemia Morbid obesity Surgical History Hx of bariatric surgery History of esophagogastroduodenoscopy (EGD) History of tendonitis History of ovarian cyst Family History Mother Diabetes Hypertension Father No problems noted. 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 Current occupational exposures/hazards: No Sexually active: Yes Sexual orientation: Straight/Heterosexual Gender identity: Female Cognitive needs: No Hearing needs: No Vision needs: Yes Review of Systems Const All systems reviewed & are unremarkable except as noted in HPI and below Card Reports as per HPI Resp Reports as per HPI GI Reports as per HPI and Reports no additional complaints Reports as per HPI Physical Exam Vital Signs: Last Vital Signs BP 118/72 03/23/25 13:42 BMI result Body Mass Index 43.7 Const General: cooperative, healthy appearing and comfortable Chest Chest palpation & inspection: normal inspection of the chest and normal palpation of entire chest wall Breast/axilla inspection: normal inspection of the breasts and normal inspection of the axillae Breast/axilla palpation: normal palpation of the breasts, normal palpation of the axillae and no axillary lymphadenopathy Resp Effort & Inspection: normal respiratory effort Auscultation: clear to auscultation bilaterally Percussion: percussion normal Cardio Palpation: normal PMI Rate: regular rate Rhythm: regular rhythm Heart sounds: no murmurs and no rubs Peripheral pulses: Peripheral pulses 2+ throughout GI Inspection: Yes normal to inspection Palpation (GI): Soft to palpation, nontender, no guarding, not rigid and No hepatosplenomegaly present Percussion: Yes normal to percussion Auscultation: normal bowel sounds Rectal Exam - Female: deferred General: Yes bladder normal to palpation External Female Exam: No lesion Speculum Exam - Vagina: normal appearance of the vagina, normal palpation, normal vaginal discharge and not erythematous Speculum Exam - Cervix: normal appearance of the cervix, normal palpation and Other cervical findings present (IUD string not seen) Bimanual exam- vagina & uterus: normal bimanual exam, normal palpation, uterine size normal, bladder normal to palpation, consistency normal and normal palpation Bimanual Exam- Adnexa, other: normal adnexae, no masses and no tenderness Results AMB Test Urine AMB Test Urine Negative Last Edit by Leana Phillips CMA on 03/23/25 13:58 Results Reviewed Results Reviewed: Laboratory Last Values Tst Clinic Negative 03/23/25 13:58 Assessment & Plan Assessment & Plan (1) Abnormal uterine bleeding (AUB): Comment: With [place]gu[place]ito Code(s): N93.9 - Abnormal uterine and vaginal bleeding, unspecified Category: Medical Plan: Co testing done, GC and chlamydia taken CBC, TSH, HCG, and pelvic ultrasound ordered. Discussed with the patient the different causes of abnormal bleeding including thyroid disorders, uterine and ovarian pathology, endometrial hyperplasia, carcinoma and other potential causes. Discussed with the patient the work up including CBC (to r/o anemia), TSH, pelvic Ultrasound, endometrial biopsy to r/o endometrial pathology. All questions answered and the patient verbalized understanding. Instructed the patient to schedule an appointment for an endometrial biopsy in 2 weeks. (2) IUD strings lost: Code(s): T83.32XA - Displacement of intrauterine contraceptive device, initial encounter Category: Medical Plan: Discussed with the patient the finding on pelvic exam no IUD strings, will order pelvic ultrasound to identify the location of the IUD and treat accordingly Orders: Orders Complete Blood Count no Diff Today N93.9 - Abnormal uterine and vaginal bleeding, unspecified TSH reflex Free T4 Today N93.9 - Abnormal uterine and vaginal bleeding, unspecified HCG Quantitative Today N93.9 - Abnormal uterine and vaginal bleeding, unspecified US pelvic and transvaginal Today N93.9 - Abnormal uterine and vaginal bleeding, unspecified AMB HCG Urine Test Today Z32.02 - Encounter for test, result negative Coding Level of Care Code New Pt Level 3 (35887) Diagnoses Abnormal uterine bleeding (AUB) N93.9 IUD strings lost T83.32XA
[2025-03-23 13:42] VITALS: BP 118/72; BMI 43.7
--- OUTSIDE RECORDS SUMMARY | 2025-03-23 17:21 | XMS_ITS | Encounter Summary ---
Author Organization [facility] Address [address] [place] [address] Phone Care Team Providers Care Rn Appeals Name Role Phone Eren Mcpherson MD Unavailable Garo Crowell MD Unavailable Megan Guevara RN Unavailable BRONWYN [email or web address] Marija Fair RN Unavailable [email or web address] [email or web address] Greer Beltran [employer] Primary Care Provider [phone] Vy Summers RN Unavailable TRAMAINE [email or web address] Eren Mcpherson MD Unavailable Alessandra German RN Unavailable Marisabel [email or web address] Martha Méndez WOMEN'S SWIM COACH Unavailable [phone] Marc Meneses DO Unavailable Pcp, Unknown Primary Care Provider Unavailabl e Encounter Details Date Type Department Care Team (Late st Contact Info) Description 08/26/2020 Procedure Pass [facility] Physicians - Radiology - [address] [place] [address] Social History Tobacco Use Types Packs/Day Years [...] documented as of this encounter Care Teams Rn Appeals Relationship Specialty Start Date End Date Greer Beltran CNP [address] [place] [phone] [email or web address] PCP - General Family Medicine 08/11/20 12/22/24 Pcp, Unknown PCP - General 12/23/24 Eren Mcpherson MD [address] [place] [id number] [email or web address] Historical LMR Provider 08/07/18 Garo Crowell MD [address] [place] [phone] [email or web address] Primary Oncologist Medical Oncology 06/21/20 Megan Guevara RN [address] [place] [phone] [email or web address] Primary Infusion Nurse 08/05/20 Marija Fair RN [address] [place] [phone] [email or web address] Associate Infusion Nurse 08/09/20 Vy Summers RN [address] [place] [phone] [email or web address] Nurse Navigator Oncology 10/11/20 Eren Mcpherson MD [address] [place] [address] [email or web address] Insurance Assigned Provider 12/11/20 09/10/21 Alsesandra German RN [address] [place] [id number] [email or web address] Associate Infusion Nurse 05/16/21 Martha Méndez CNP [address] [place] [phone] [email or web address] Oncology 05/22/21 Marc Meneses DO [address] [place] [phone] Insurance Assigned Provider 12/15/22 04/13/23 documented as of this encounter Additional Source Comments The information contained in this document represents components of the legal health record. It is not the complete legal health record.[facility]
--- OUTSIDE RECORDS SUMMARY | 2025-03-23 17:21 | XMS_ITS | Patient Health Record ---
Author Organization [facility] Address [address] [id number] Care Team Providers Care Collections Analyst Name Role Phone Rex FLOWERS, [facility] Primary Care Provider Ludwin Sanchez [phone] Reason For Referral No Information Plan Of Treatment No Information Insurance Providers Payer Name Payer Address Payer Phone Subscriber Number Group Number Insured Name Patient Relationship to Insured Coverage Start Date Coverage End Date 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
--- OUTSIDE RECORDS SUMMARY | 2025-03-23 17:21 | XMS_ITS | Clinical Summary ---
Author Organization [facility] Address [address] [facility] [place] [address] [place] [address] Phone Care Team Providers Care Tax Assessor Name Role Phone Eren Mcpherson MD Unavailable Garo Crowell MD Unavailable Megan Guevara RN Unavailable BRONWYN [email or web address] Marija Fair RN Unavailable GISELLE FOOTE@[facility].[place] Vy Summers RN Unavailable TRAMAINE MARTE@[facility].[place] Alessandra German RN Unavailable Marisabel [email or web address] Martha Méndez SOW MANAGER Unavailable [phone] Pcp, Unknown Primary Care Provider Unavailabl e [...] Has been unrevealing She was referred to [facility] for additional testing options She is advised to continue current medications and ongoing management per neurology both locally and at [facility] Assessment & Plan (03/16/2021 2:16 PM [...] seen in a local ER; records from [facility] reviewed at the time of this [...] seen in a local ER; records from [facility] reviewed at the time of this visit She was treated with Reglan, Benadryl and Toradol She is currently taking ibuprofen with improvement of symptoms She is advised to begin magnesium as discussed I resent her prescription for imitrex to [facility] where this will be less expensive We will reassess in 1 week or sooner with any decline in symptoms We will refer to neurology for their input Assessment & Plan (08/12/2020 9:42 AM EST): Persistent frontal migraine for the last week No injury or trauma prior to onset No vision changes Nonresponsive to hcsr-und-zbxjgwo medications that typically provide relief No associated [...] plan to proceed with bariatric surgery at [facility] Preop paperwork completed today She is an acceptable surgical risk Assessment & Plan (11/15/2020 8:04 AM EDT): Ongoing inability to lose weight Admittedly she has not been very active due to issues with migraines She is referred to bariatric surgery at [facility] Contact info given and she is [...] Department Care Team Description 01/21/2025 Orders Only [facility] [place] at [facility] [address] Floor [place] [address] Martha Méndez CNP from Last 3 Months [...] SEE NARRATIVE - 03/30/2021 8:43 [place] [address] Supervisor Post Wave: Ayden Morel MD SALES COACH Cytology Report FINAL DIAGNOSIS A. CERVICAL, LIQUID BASED SPECIMEN: SPECIMEN ADEQUACY: Satisfactory for evaluation; transformation zone present. INTERPRETATION: NEGATIVE FOR INTRAEPITHELIAL LESION OR MALIGNANCY. Reactive changes. Coccobacilli consistent with shift in delfina This specimen was analyzed by the automated ThinPrep Imaging System ([employer]ishing [employer].) and manually rescreened by a car trimmer and/or pathologist. Electronically Signed Out By: MD [...] cytotech screening of this specimen performed at [facility], [address] [place] [address]. Professional services provided by [facility] [place] [address]. Sonia Ordaz MD, Vp Transportation Patient Name: YAS WORTHINGTON : 1985 (Age: 35) Sex: F Institution: [facility] Location: [facility] Date of Collection: 03/16/2021 Date of Reported: 03/30/2021 08:43 Ordered By: Greer Perez HEATING OPERATORS ENGINEER Copy To: us Greer Beltran CNP CYTOLOGY ORDERABLES Final Re sult Performing Organization Address City/[facility] Co de Phone Number SEE NARRATIVE * Hepatitis C antibody, qualitative (02/16/2021 8:12 AM EDT) HCV ANTIBODY Non-Reacti ve Non-Reacti ve [facility] Blood 02/16/2021 8:12 AM EDT 02/16/2021 8:23 AM EDT Greer Beltran CNP LAB BLOOD ORDERABLES Final R esult Performing Organization Address City/State/[facility] Co de Phone Number [address] [address], [facility] from Last 3 Months or Most Recently Relevant to Health Maintenance Insurance [facility] [employer] [facility] [employer] [facility] [facility] [employer] [facility] [facility] [employer] [facility] [facility] Care Teams Tax Assessor Relationship Specialty Start Date End Date Pcp, Unknown PCP - General 12/23/24 Eren Mcpherson MD [address] [facility] [address] [place] [address] [email or web address] Historical LMR Provider 08/07/18 Garo Crowell MD [address] [place] [address] [email or web address] Primary Oncologist Medical Oncology 06/21/20 Megan Guevara, JOANNE [address] [place] [address] PRITI@[email or web address] Primary Infusion Nurse 08/05/20 Marija Fair RN [address] [place] [phone] YUAN@[email or web address] Associate Infusion Nurse 08/09/20 Vy Summers, JOANNE [address] [place] [address] LAWANDA@[facility] Nurse Navigator Oncology 10/11/20 Alessandra German, JOANNE [address] [place] [address] [email or web address] Associate Infusion Nurse 05/16/21 Martha Méndez SOW MANAGER [address] [place] [phone] ROBERT@[facility] Oncology 05/22/21 Additional Source Comments The information contained in this document represents components of the legal health record. It is not the complete legal health record.[facility]
--- OUTSIDE RECORDS SUMMARY | 2025-03-23 17:21 | XMS_ITS ---
Author Organization [facility] Address [address] [place] [address] [place] [address] Phone Care Team Providers Care Trade Promotion Analyst Name Role Phone Eren Mcpherson MD Unavailable Garo Crowell MD Unavailable Megan Guevara RN Unavailable BRONWYN [email or web address] Marija Fair RN Unavailable GISELLE FOOTE@[email or web address].[facility] Vy Summers RN Unavailable TRAMAINE MARTE@[email or web address].[facility] Alessandra German RN Unavailable Marisabel [email or web address] Martha Méndez NEIGHBORHOOD [facility] DIRECTOR Unavailable [phone] Pcp, Unknown Primary Care Provider Unavailabl e [...] Has been unrevealing She was referred to [facility] for additional testing options She is advised to continue current medications and ongoing management per neurology both locally and at [facility] Assessment & Plan (03/16/2021 2:16 PM [...] seen in a local ER; records from [facility] reviewed at the time of this [...] seen in a local ER; records from [facility] reviewed at the time of this visit She was treated with Reglan, Benadryl and Toradol She is currently taking ibuprofen with improvement of symptoms She is advised to begin magnesium as discussed I resent her prescription for imitrex to [facility] where this will be less expensive We will reassess in 1 week or sooner with any decline in symptoms We will refer to neurology for their input Assessment & Plan (08/12/2020 9:42 AM EST): Persistent frontal migraine for the last week No injury or trauma prior to onset No vision changes Nonresponsive to bkqa-zzt-jvdxkcq medications that typically provide relief No associated [...] to proceed with bariatric surgery at [facility] Preop paperwork completed today She is an acceptable surgical risk Assessment & Plan (11/15/2020 8:04 AM EDT): Ongoing inability to lose weight Admittedly she has not been very active due to issues with migraines She is referred to bariatric surgery at [facility] Contact info given and she is [...]
--- OUTSIDE RECORDS SUMMARY | 2025-03-23 17:21 | XMS_ITS | Clinical Summary ---
Author Organization [facility] ity Address [address] [place] [address] Care Team Providers Care Community Reinvestment Act Officer Name Role Phone Unavailable Primary Care Provider [...] Cervical Cancer Screening: P ap Smear 2005 Depression Screening 07/08/2024 COVID-19 Vaccine (2023-2 5 season) 2025 Influenza Vaccine (#1) 2025 HIB Vaccines Aged [...]
== END 2025-03-23 14:46 | disposition home or self-care (01) ==
LOC: HO.HWS 13:26
PROVIDERS: PCP Internal Medicine; Visit Provider Obstetrics & Gynecology
DX: N93.9 Abnormal uterine and vaginal bleeding, unspecified (principal); T83.32XA Displacement of intrauterine contraceptive device, initial encounter; Z32.02 Encounter for pregnancy test, result negative
CPT/HCPCS: 99203

== ENCOUNTER 2025-03-23 13:26 | Outpatient (REF) | payer OTHER, SELFPAY ==
[2025-03-24 10:39] LABS: CT PCR NOT DETECTED (Not Detect.); NG PCR NOT DETECTED (Not Detect.)
== END 2025-03-23 13:27 | disposition home or self-care (01) ==
LOC: HO.LNP 13:26
PROVIDERS: PCP Internal Medicine; Visit Provider Obstetrics & Gynecology
DX: T83.32XA Displacement of intrauterine contraceptive device, initial encounter (principal); N93.9 Abnormal uterine and vaginal bleeding, unspecified; Z32.02 Encounter for pregnancy test, result negative; Z20.2 Contact with and (suspected) exposure to infections with a predominantly sexual mode of transmission
CPT/HCPCS: 81025; 87491; 87591; 87626; 88175; 99202

== ENCOUNTER 2025-03-29 09:05 | Outpatient (AMB) | payer OTHER, SELFPAY ==
--- NOTE | 2025-03-29 09:00 | A.OFFWM_ITS ---
Intake Intake Visit Reasons: VIDEO PO LSG 02/25/25 Allergies codeine Allergy (Verified 03/23/25 14:14) Hives [facility] Medical History BMI 50.0-59.9, adult Anemia Morbid obesity Surgical History Hx of bariatric surgery History of esophagogastroduodenoscopy (EGD) History of tendonitis History of ovarian cyst Family History Mother Diabetes Hypertension Father No problems noted. Paternal Grandmother Breast cancer Social History Household Members: Spouse Housing: Apartment Are you a primary respiratory care practitioner to a significant other at home: No Do you presently have visiting nurse or other home services: No Alcohol intake: current Alcohol intake frequency: does not drink Alcohol type: hard liquor Patient Tobacco Use Status: Never used Tobacco e-Cigarette/Vaping Use: Never Used Second Hand Smoke Exposure: No service: No Current occupational status: employed Current occupation: Billing at [employer] Current occupational exposures/hazards: No Sexual orientation: Straight/Heterosexual Gender identity: Female Cognitive needs: No Hearing needs: No Vision needs: Yes Behavioral Health Assessment Weight Management Therapy Therapy Notes Details Subjective: Patient reports overall progress and is generally doing well. She describes a recent misunderstanding with her provider, which has contributed to some emotional difficulty. She notes that some days it is particularly challenging to adhere to a full liquid diet. Since returning to work on 03/18, she finds it easier to consume shakes during work hours. Most recent weight, as of 03/25/25, is 244 lbs. She reports engaging in daily exercise 5?6 days per week, typically burning 450 calories on the bike. Current meal plan consists of shakes throughout the day, with the option of an egg for dinner. Objective: Patient attended post-operative follow-up via telehealth. Discussed current functioning and challenges adhering to the prescribed meal plan. Provided validation and normalization of emotional responses. Reviewed initial motivations and personal goals for program participation, and collaboratively established non-scale goals to support ongoing discipline and vision. Addressed mindset and emotional regulation strategies to manage urges to eat outside the meal plan, and explored effective communication techniques. Assessment/Response: * Mental status: WNL * Risk reported/identified: None Assessment & Plan Assessment & Plan (1) Adjustment disorder: Code(s): F43.20 - Adjustment disorder, unspecified Plan Schedule follow-up appointment in 1 month for ongoing post-operative support and monitoring of progress. * Next appointment: 04/26/25 at 9:00 AM. Telehealth Telehealth Telehealth Platform: [employer] Location of provider rendering services: other (Home office. [place], [place]) Location of patient: address on file Patient Identification confirmed using: Name, : Yes Telehealth method: video Patient verbally consented to treatment: Yes Patient verbally consented to billing insurance company: Yes Patient informed of any privacy concerns related to visit: Yes Minutes spent on Phone/Video with Pt.: 60 Coding Level of Care Code Established Pt Tele Psytx >53 mins (18994) Patient Type Established Diagnoses Adjustment disorder F43.20 Time Spent (min) 60
--- OUTSIDE RECORDS SUMMARY | 2025-03-29 10:40 | XMS_ITS | Clinical Summary ---
Author Organization [facility] Address [address] [facility] [address] [place] [address] Phone Care Team Providers Care Inspector Assemblies And Installations Name Role Phone Eren Mcpherson MD Unavailable Garo Crowell MD Unavailable Megan Guevara RN Unavailable BRONWYN [email or web address] Marija Fair RN Unavailable GISELLE FOOTE@[email or web address].[facility] Vy Summers RN Unavailable TRAMAINE MARTE@[email or web address].[email or web address].[facility] Alessandra German RN Unavailable Marisabel [email or web address] Martha Méndez FRESH FOOD MANAGER Unavailable [phone] Pcp, Unknown Primary Care Provider Unavailabl e [...] Has been unrevealing She was referred to [facility] for additional testing options She is advised to continue current medications and ongoing management per neurology both locally and at [facility] Assessment & Plan (03/16/2021 2:16 PM EDT): [...] seen in a local ER; records from [facility] reviewed at the time of [...] seen in a local ER; records from [facility] reviewed at the time of this visit She was treated with Reglan, Benadryl and Toradol She is currently taking ibuprofen with improvement of symptoms She is advised to begin magnesium as discussed I resent her prescription for imitrex to [facility] where this will be less expensive We will reassess in 1 week or sooner with any decline in symptoms We will refer to neurology for their input Assessment & Plan (08/12/2020 9:42 AM EST): Persistent frontal migraine for the last week No injury or trauma prior to onset No vision changes Nonresponsive to tusk-jtc-mmgtpwb medications that typically provide relief No associated [...] plan to proceed with bariatric surgery at [facility] Preop paperwork completed today She is an acceptable surgical risk Assessment & Plan (11/15/2020 8:04 AM EDT): Ongoing inability to lose weight Admittedly she has not been very active due to issues with migraines She is referred to bariatric surgery at [facility] Contact info given and she [...] Department Care Team Description 01/21/2025 Orders Only [facility] [place] at [facility] [address] [place] [address] Martha Méndez CNP from Last 3 Months [...] 06/15/2022 06/15/2021 Adult Td,Tdap Booster 02/27/2023 02/27/2013 PAP SMEAR 03/16/2024 03/16/2021, 03/16/2021, 04/06/2016 MAMMOGRAM 2024 INFLUENZA VACCINE (#1) 2025 COVID-19 VACCINE (2024-2 6 season) 2025 12/20/2020, 11/19/2020 HIV ONE-TIME SCREENING (18-6 5 YEARS) Completed [...] SEE NARRATIVE - 03/30/2021 8:43 [place] [address] Awning Maker And Installer: Ayden Morel MD DEMOGRAPHER Cytology Report FINAL DIAGNOSIS A. CERVICAL, LIQUID BASED SPECIMEN: SPECIMEN ADEQUACY: Satisfactory for evaluation; transformation zone present. INTERPRETATION: NEGATIVE FOR INTRAEPITHELIAL LESION OR MALIGNANCY. Reactive changes. Coccobacilli consistent with shift in delfina This specimen was analyzed by the automated ThinPrep Imaging System ([employer].) and manually rescreened by a second grade teacher and/or pathologist. Electronically Signed Out By: MD [...] cytotech screening of this specimen performed at [facility], [address] [place] [address]. Professional services provided by [facility] [place] [address]. Sonia Ordaz MD, Package Sorter Patient Name: YAS WORTHINGTON : 1985 (Age: 35) Sex: F Institution: [facility] Location: [facility] Date of Collection: 03/16/2021 Date of Reported: 03/30/2021 08:43 Ordered By: Greer Perez LUGGAGE ATTENDANT Copy To: us Greer Beltran CNP CYTOLOGY ORDERABLES Final Re sult Performing Organization Address City/[facility] Co de Phone Number SEE NARRATIVE * Hepatitis C antibody, qualitative (02/16/2021 8:12 AM EDT) HCV ANTIBODY Non-Reacti ve Non-Reacti ve [facility] Blood 02/16/2021 8:12 AM EDT 02/16/2021 8:23 AM EDT Greer Beltran CNP LAB BLOOD ORDERABLES Final R esult Performing Organization Address City/State/[facility] Co de Phone Number [address] [address], [facility] from Last 3 Months or Most Recently Relevant to Health Maintenance Insurance [facility] FAMILY [facility] [facility] C[facility] Care Teams Inspector Assemblies And Installations Relationship Specialty Start Date End Date Pcp, Unknown PCP - General 12/23/24 Eren Mcpherson MD [address] [facility] [address] [place] [address] [email or web address] Historical LMR Provider 08/07/18 Garo Crowell MD [address] [place] [phone] [email or web address] Primary Oncologist Medical Oncology 06/21/20 Megan Guevara, JOANNE [address] [place] [phone] PRITI@[email or web address] Primary Infusion Nurse 08/05/20 Marija Fair RN [address] [place] [phone] YUAN@[facility] Associate Infusion Nurse 08/09/20 Vy Summers, JOANNE [address] [place] [phone] LAWANDA@[email or web address] Nurse Navigator Oncology 10/11/20 Alessandra German, JOANNE [address] [place] [phone] [email or web address] Associate Infusion Nurse 05/16/21 Martha Méndez FRESH FOOD MANAGER [address] [place] [phone] ROBERT@[facility] Oncology 05/22/21 Additional Source Comments The information contained in this document represents components of the legal health record. It is not the complete legal health record.[facility]
--- OUTSIDE RECORDS SUMMARY | 2025-03-29 10:40 | XMS_ITS ---
Author Organization [facility] Address [address] [facility] [address] [place] [address] Phone Care Team Providers Care Remote Mortgage Underwriter Name Role Phone Eren Mcpherson MD Unavailable Garo Crowell MD Unavailable Megan Guevara RN Unavailable BRONWYN MOONEY@[email or web address].[email or web address] Mairja Fair RN Unavailable GISELLE FOOTE@[facility].[place] Vy Summers RN Unavailable TRAMAINE MARTE@[facility].[place] Alessandra German RN Unavailable Marisabel [email or web address] Martha Méndez SEX THERAPIST Unavailable [phone] Pcp, Unknown Primary Care Provider Unavailabl e [...] Has been unrevealing She was referred to [facility] for additional testing options She is advised to continue current medications and ongoing management per neurology both locally and at [facility] Assessment & Plan (03/16/2021 2:16 PM EDT): [...] seen in a local ER; records from [facility] reviewed at the time of [...] seen in a local ER; records from [facility] reviewed at the time of this visit She was treated with Reglan, Benadryl and Toradol She is currently taking ibuprofen with improvement of symptoms She is advised to begin magnesium as discussed I resent her prescription for imitrex to [facility] where this will be less expensive We will reassess in 1 week or sooner with any decline in symptoms We will refer to neurology for their input Assessment & Plan (08/12/2020 9:42 AM EST): Persistent frontal migraine for the last week No injury or trauma prior to onset No vision changes Nonresponsive to jyky-ggy-gyqrqcl medications that typically provide relief No associated [...] She is referred to bariatric surgery at [facility] Contact info given and she [...]
--- OUTSIDE RECORDS SUMMARY | 2025-03-29 10:40 | XMS_ITS | Clinical Summary ---
Author Organization [facility] ity Address [address] [place] [address] Care Team Providers Care Public Health Professor Name Role Phone Unavailable Primary Care Provider [...]
--- OUTSIDE RECORDS SUMMARY | 2025-03-29 10:40 | XMS_ITS | Encounter Summary ---
Author Organization [facility] Address [address] [place] [phone] Phone Care Team Providers Care Programmable Logic Controller Assembler Name Role Phone Eren Mcpherson MD Unavailable Garo Crowell MD Unavailable Megan Guevara RN Unavailable BRONWYN [email or web address].[email or web address] Marija Fair RN Unavailable GISELLE FOOTE@[email or web address].[email or web address] Greer Beltran CREEL CLEANER Primary Care Provider [phone] Vy Summers RN Unavailable TRAMAINE MARTE@[email or web address].[email or web address].[email or web address] Eren Mcpherson MD Unavailable Alessandra German RN Unavailable Marisabel [email or web address] Martha Méndez CREEL CLEANER Unavailable [phone] Marc Meneses DO Unavailable Pcp, Unknown Primary Care Provider Unavailabl e Encounter Details Date Type Department Care Team (Late st Contact Info) Description 08/26/[address] [facility] Physicians - Radiology - [place] [address] [place] [address] Social History Tobacco Use Types Packs/Day Years [...] documented as of this encounter Care Teams Programmable Logic Controller Assembler Relationship Specialty Start Date End Date Greer Beltran CNP [address] [place] [phone] [email or web address] PCP - General Family Medicine 08/11/20 12/22/24 Pcp, Unknown PCP - General 12/23/24 Eren Mcpherson MD [address] [place] [phone] COLT@[email or web address] Historical LMR Provider 08/07/18 Garo Crowell MD [address] [place] [phone] [email or web address] Primary Oncologist Medical Oncology 06/21/20 Megan Guevara RN [address] [place] [phone] PRITI@[email or web address] Primary Infusion Nurse 08/05/20 Marija Fair RN [address] [place] [phone] YUAN@[facility] Associate Infusion Nurse 08/09/20 Vy Summers RN [address] [place] [phone] LAWANDA@[facility] Nurse Navigator Oncology 10/11/20 Eren Mcpherson MD [address] [place] [address] [email or web address] Insurance Assigned Provider 12/11/20 09/10/21 Alessandra German RN [address] [place] [phone] [email or web address] Associate Infusion Nurse 05/16/21 Martha Méndez CNP [address] [place] [phone] ROBERT@[email or web address] Oncology 05/22/21 Marc Meneses DO [address] [place] [phone] Insurance Assigned Provider 12/15/22 04/13/23 documented as of this encounter Additional Source Comments The information contained in this document represents components of the legal health record. It is not the complete legal health record.[facility]
== END 2025-03-29 10:10 | disposition home or self-care (01) ==
LOC: HO.HBST 09:05
PROVIDERS: PCP Internal Medicine; Visit Provider Counselor Mental Health
DX: F43.20 Adjustment disorder, unspecified (principal)
CPT/HCPCS: 90837

== ENCOUNTER 2025-04-02 09:54 | Outpatient (REF) | payer OTHER, SELFPAY ==
[2025-04-02 10:51] LABS: Hematocrit 37.3 % (37.0-47.0); Hemoglobin 11.4 g/dl (12.0-16.0); Mean Corpuscular HGB Conc 30.6 g/dl (31.0-35.0); Mean Corpuscular Hemoglobin 24.6 pg (27.0-33.0); Mean Corpuscular Volume 80.6 fL (80.0-98.0); NRBC Abs Auto 0.000 X10*3/uL (0.0-0.012); NRBC Pct Auto 0.0 /100WBC (0.0-0.2); Platelet Count 283 X10*3/uL (160-400); Red Blood Count 4.63 X10*6/uL (4.20-5.50); White Blood Count 8.7 X10*3/uL (4.8-10.8)
--- OUTSIDE RECORDS SUMMARY | 2025-04-02 11:04 | XMS_ITS | Clinical Summary ---
Author Organization [facility] ity Address [address] [place] [address] Care Team Providers Care Consulting Project Director Name Role Phone Unavailable Primary Care Provider [...]
--- OUTSIDE RECORDS SUMMARY | 2025-04-02 11:05 | XMS_ITS ---
Author Organization [facility] Address [address] [place] [address] [place] [address] Phone Care Team Providers Care Manager Utilities Name Role Phone Eren Mcpherson MD Unavailable Garo Crowell MD Unavailable Megan Guevara RN Unavailable [email or web address] [email or web address] Marija Fair RN Unavailable GISELLE [email or web address] Vy Summers RN Unavailable TRAMAINE [email or web address] Alessandra German RN Unavailable Marisabel [email or web address] Martha Méndez FLOOR PRESS OPERATOR Unavailable [phone] Pcp, Unknown Primary Care Provider Unavailabl e [...] Has been unrevealing She was referred to [facility] for additional testing options She is advised to continue current medications and ongoing management per neurology both locally and at [facility] Assessment & Plan (03/16/2021 2:16 PM EDT): [...] a local ER; records from [facility] reviewed at the time of this [...] a local ER; records from [facility] reviewed at the time of this visit She was treated with Reglan, Benadryl and Toradol She is currently taking ibuprofen with improvement of symptoms She is advised to begin magnesium as discussed I resent her prescription for imitrex to [facility] where this will be less expensive We will reassess in 1 week or sooner with any decline in symptoms We will refer to neurology for their input Assessment & Plan (08/12/2020 9:42 AM EST): Persistent frontal migraine for the last week No injury or trauma prior to onset No vision changes Nonresponsive to have-cao-czwahod medications that typically provide relief No associated [...] plan to proceed with bariatric surgery [facility] Preop paperwork completed today She is an acceptable surgical risk Assessment & Plan (11/15/2020 8:04 AM EDT): Ongoing inability to lose weight Admittedly she has not been very active due to issues with migraines She is referred to bariatric surgery at [facility] Contact info given and she is [...]
--- OUTSIDE RECORDS SUMMARY | 2025-04-02 11:07 | XMS_ITS | Encounter Summary ---
Author Organization [facility] Address [address] [place] [address] Phone Care Team Providers Care Advertising Solicitor Name Role Phone Eren Mcpherson MD Unavailable Garo Crowell MD Unavailable Megan Guevara RN Unavailable BRONWYN [email or web address] Marija Fair RN Unavailable GISELLE [email or web address] Greer Beltran ELECTRICIAN Primary Care Provider [phone] Vy Summers RN Unavailable TRAMAINE [email or web address] Eren Mcpherson MD Unavailable Alessandra German RN Unavailable Marisabel [email or web address] Martha Méndez ELECTRICIAN Unavailable [phone] Marc Meneses DO Unavailable Pcp, Unknown Primary Care Provider Unavailabl e Encounter Details Date Type Department Care Team (Late st Contact Info) Description 08/26/2020 Procedure Pass [facility] Physicians - Radiology - [place] [address] [place] [address] Social History Tobacco Use Types Packs/Day Years [...] documented as of this encounter Care Teams Advertising Solicitor Relationship Specialty Start Date End Date Greer Beltran CNP [address] [place] [phone] [email or web address] PCP - General Family Medicine 08/11/20 12/22/24 Pcp, Unknown PCP - General 12/23/24 Eren Mcpherson MD [address] [place] [phone] [email or web address] Historical LMR Provider 08/07/18 Garo Crowell MD [address] [place] [id number] [email or web address] Primary Oncologist Medical Oncology 06/21/20 Megan Guevara RN [address] [place] [phone] [email or web address] Primary Infusion Nurse 08/05/20 Marija Fair RN [address] [place] [phone] [email or web address] Associate Infusion Nurse 08/09/20 yV Summers RN [address] [place] [phone] [email or web address] Nurse Navigator Oncology 10/11/20 Eren Mcpherson MD [address] [place] [address] [email or web address] Insurance Assigned Provider 12/11/20 09/10/21 Alessandra German RN [address] [place] [phone] [email or web address] Associate Infusion Nurse 05/16/21 Martha Méndez CNP [address] [place] [phone] [email or web address] Oncology 05/22/21 Marc Meneses DO [address] [place] [phone] Insurance Assigned Provider 12/15/22 04/13/23 documented as of this encounter Additional Source Comments The information contained in this document represents components of the legal health record. It is not the complete legal health record.[facility]
--- OUTSIDE RECORDS SUMMARY | 2025-04-02 11:07 | XMS_ITS | Patient Health Record ---
Author Organization [facility] Address [address] [phone] Care Team Providers Care Farm Manager Name Role Phone Rex FLOWERS, [facility] Primary Care Provider Ludwin Sanchez [phone] Reason For Referral No Information Plan Of Treatment No Information Insurance Providers Payer Name Payer Address Payer Phone Subscriber Number Group Number Insured Name Patient Relationship to Insured Coverage Start Date Coverage End Date [facility] [address] [address] [place] [address] [id number] Yas Worthington Self - patient is the insured Medical (General) History Surgical History 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
== END 2025-04-02 09:55 | disposition home or self-care (01) ==
LOC: HO.LAB 09:54
PROVIDERS: PCP Internal Medicine; Visit Provider Obstetrics & Gynecology
DX: N93.9 Abnormal uterine and vaginal bleeding, unspecified (principal); E66.9 Obesity, unspecified; Z68.43 Body mass index [BMI] 50.0-59.9, adult; Z98.84 Bariatric surgery status; Z79.899 Other long term (current) drug therapy
CPT/HCPCS: 36415; 84443; 84702; 85027

== ENCOUNTER 2025-04-02 09:59 | Outpatient (AMB) | payer OTHER, SELFPAY ==
--- NOTE | 2025-04-02 10:12 | A.OFFVIS_ITS ---
VS Expanded 04/02/25 10:18 Height 5 ft 3 in Weight 242 lb 5 oz BMI 42.9 Intake Visit Reasons: TV PO LSG 02/25/25 Allergies codeine Allergy (Verified 03/23/25 14:14) Hives Medication List - Last Reconciled 04/02/25 by MAYLIN Fall docusate sodium 100 mg PO BID inulin 2 grams PO DAILY multivitamin 1 tab PO DAILY pantoprazole 40 mg PO DAILY sucralfate 10 mL PO BID HPI Comments Details: This?is a?39?yo F who is s/p LSG 02/25/2025. Presents for 5w post op visit. Weight at last visit on 03/02/2025 was 252.4 pounds with a BMI of 44.7. Weight today is 242.5 pounds, representing a 9.9 pound weight loss with a BMI today of 42.9.? No complaints of nausea, emesis, abdominal pain or reflux. Reports some constipation- has had to take ExLax. Present meal plan includes: Celebrate Rebuild - x4, 1 scoop each protein bar (or egg) Exercise routine includes: gets fatigued sometimes- tries to do 450 veronica, tries to go every day [facility] Medical History BMI 50.0-59.9, adult Anemia Morbid obesity Surgical History Hx of bariatric surgery History of esophagogastroduodenoscopy (EGD) History of tendonitis History of ovarian cyst Family History Mother Diabetes Hypertension Father No problems noted. 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[employer] Current occupational exposures/hazards: No Sexual orientation: Straight/Heterosexual Gender identity: Female Cognitive needs: No Hearing needs: No Vision needs: Yes Telehealth Telehealth Telehealth Platform: Telephone Location of provider rendering services: other Location of patient: address on file Patient Identification confirmed using: Name, : Yes Telehealth method: voice only Patient verbally consented to treatment: Yes Patient verbally consented to billing insurance company: Yes Patient informed of any privacy concerns related to visit: Yes Minutes spent on Phone/Video with Pt.: 15 Assessment & Plan Assessment & Plan (1) S/P laparoscopic sleeve gastrectomy: Code(s): Z98.84 - Bariatric surgery status Category: Surgical (2) Obesity: Code(s): E66.9 - Obesity, unspecified Category: Medical Plan Continue meal plan per Dr. Giraldo. Can use up to 8oz homemade broth per day (no store bought). Continue exercise at current level. Reviewed no heavy lifting until 6w postop. Continue PPI and carafate. Sent colace and fiber to pharmacy, can use Miralax PRN. RTC 2mo (15min phone call visit). Medications: New docusate sodium 100 mg PO BID 60 caps 1RF inulin 2 grams PO DAILY 90 tabs 3RF
[2025-04-02 10:18] VITALS: BMI 42.9
== END 2025-04-02 10:28 | disposition home or self-care (01) ==
LOC: HO.HBS 09:59
PROVIDERS: PCP Internal Medicine; Visit Provider Physician Assistant Surgical
DX: E66.01 Morbid (severe) obesity due to excess calories (principal); Z98.84 Bariatric surgery status; Z90.3 Acquired absence of stomach [part of]; Z68.41 Body mass index [BMI] 40.0-44.9, adult
CPT/HCPCS: 99024

== ENCOUNTER 2025-04-26 09:13 | Outpatient (AMB) | payer OTHER, SELFPAY ==
--- NOTE | 2025-04-26 09:05 | A.OFFWM_ITS ---
Intake Intake Visit Reasons: VIDEO PO LSG 02/25/25 Allergies codeine Allergy (Verified 03/23/25 14:14) Hives [facility] Medical History BMI 50.0-59.9, adult Anemia Morbid obesity Surgical History Hx of bariatric surgery History of esophagogastroduodenoscopy (EGD) History of tendonitis History of ovarian cyst Family History Mother Diabetes Hypertension Father No problems noted. 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 She also expresses frustration regarding a recent interaction with her surgeon, describing the encounter as unsupportive and leaving her feeling misunderstood. Despite these challenges, she notes progress in her weight management, with a current weight of 239 lbs as of 04/22/25, reflecting a total loss of 21 lbs since her surgery. She remains motivated to continue her post-operative journey but acknowledges that maintaining new routines amidst work stress has been difficult. Objective: The patient presented for a post-operative behavioral health visit conducted via video. She was appropriately dressed, alert, and engaged throughout the session. During the appointment, CBT-based interventions were utilized to address her current stressors and emotional responses. Cognitive restructuring techniques were introduced to help her identify and challenge unhelpful thoughts related to her work stress and the recent interaction with her surgeon. Behavioral activation strategies were discussed, focusing on enhancing her daily schedule and establishing routines that support her recovery and well-being. The patient was encouraged to implement structured self-care activities and to use problem- solving skills to manage work-related demands. Relaxation techniques, including diaphragmatic breathing and brief mindfulness exercises, were practiced to help her manage acute stress symptoms. The patient responded positively to these interventions, demonstrating insight and a willingness to apply these strategies between sessions. Assessment/Response: * Mental status: Well-groomed, cooperative, mood ?stressed but hopeful,? affect congruent, logical thought process, no SI/HI, no psychosis, good insight and judgment. * Risk reported/identified: No current safety concerns or risk behaviors identified. Food/Weight/Diet Expectations of change PT started the program on 11/11/2024 at 287 lbs The most recent weight recorded on 12/17/2024 was 276 lbs. The Initial Goal was to lose 10% of her weight before surgery, which is approximately 27 pounds. Ultimate weight goal: 260 lbs. before surgery. Recent weight 01/16/2025: 271Lbs Weight on day of surgery 02/25/25: 260Lbs PO weight 03/04/2025: 249Lbs PO weight 04/22/25: 239Lbs PT's target weight goal: 150Lbs for now. PT is implementing the following: Current meal plan: Liquid plan Exercise plan: none yet Assessment & Plan Assessment & Plan (1) Adjustment disorder: Code(s): F43.20 - Adjustment disorder, unspecified Plan Continue post-operative behavioral health support on a monthly basis to reinforce coping strategies, address ongoing stressors, and support continued weight management. * Next appointment scheduled for 05/24/2025 at 9am via video. Telehealth Telehealth Telehealth Platform: [facility] Assist Location of provider rendering services: other (Home office. [place], [place]) Location of patient: address on file Patient Identification confirmed using: Name, : Yes Telehealth method: video Patient verbally consented to treatment: Yes Patient verbally consented to billing insurance company: Yes Patient informed of any privacy concerns related to visit: Yes Minutes spent on Phone/Video with Pt.: 55 [place] [address] Tele Psytx >53 mins Patient Type Established Diagnoses Adjustment disorder F43.20 Time Spent (min) 55
--- OUTSIDE RECORDS SUMMARY | 2025-04-26 10:22 | XMS_ITS | Clinical Summary ---
Author Organization [facility] ity Address [address] [place] [address] Care Team Providers Care Hand Endband Cutter Name Role Phone Unavailable Primary Care Provider [...] Cervical Cancer Screening: P ap Smear 2005 HPV Vaccines (1 - 3-dose SCD M series) 2011 Depression Screening 07/08/2024 COVID-19 Vaccine ( - 2023-2 5 season) 2025 Influenza Vaccine (#1) 2025 RSV Immunization Adult Patie nts (1 - 1-dose 75+ series) 2059 HIB Vaccines Aged Out No longer eligi [...]
--- OUTSIDE RECORDS SUMMARY | 2025-04-26 10:22 | XMS_ITS ---
Author Organization [facility] Address [address] [place] [address] [place] [phone] Phone Care Team Providers Care Job Recruiter Name Role Phone Eren Mcpherson MD Unavailable Garo Crowell MD Unavailable Megan Guevara RN Unavailable BRONWYN [email or web address] Marija Fair RN Unavailable GISELLE [email or web address] Vy Summers RN Unavailable TRAMAINE [email or web address].[facility] Alessandra German RN Unavailable Marisabel [email or web address] Martha Méndez HTML WEB DEVELOPER Unavailable [phone] Pcp, Unknown Primary Care Provider Unavailabl e [...] Has been unrevealing She was referred to [facility] for additional testing options She is advised to continue current medications and ongoing management per neurology both locally and at [facility] Assessment & Plan (03/16/2021 2:16 [...] in a local ER; records from [facility] reviewed at the time of this [...] in a local ER; records from [facility] reviewed at the time of this visit She was treated with Reglan, Benadryl and Toradol She is currently taking ibuprofen with improvement of symptoms She is advised to begin magnesium as discussed I resent her prescription for imitrex to [facility] where this will be less expensive We will reassess in 1 week or sooner with any decline in symptoms We will refer to neurology for their input Assessment & Plan (08/12/2020 9:42 AM EST): Persistent frontal migraine for the last week No injury or trauma prior to onset No vision changes Nonresponsive to sdxe-dfr-ogtzeau medications that typically provide relief No associated [...] plan to proceed with bariatric surgery at [facility] Preop paperwork completed today She is an acceptable surgical risk Assessment & Plan (11/15/2020 8:04 AM EDT): Ongoing inability to lose weight Admittedly she has not been very active due to issues with migraines She is referred to bariatric surgery at [facility] Contact info given and she is [...]
--- OUTSIDE RECORDS SUMMARY | 2025-04-26 10:23 | XMS_ITS | Clinical Summary ---
Author Organization [facility] Address [address] [facility] [address] [place] [address] Phone Care Team Providers Care Nutter Up Name Role Phone Eren Mcpherson MD Unavailable Garo Crowell MD Unavailable Megan Guevara RN Unavailable BRONWYN [email or web address] Marija Fair RN Unavailable GISELLE [email or web address] Vy Summers RN Unavailable TRAMAINE [email or web address] Alessandra German RN Unavailable Marisabel [email or web address] Martha Méndez POLISH COMPOUNDER Unavailable [phone] Pcp, Unknown Primary Care Provider Unavailabl e [...] Has been unrevealing She was referred to [facility] for additional testing options She is advised to continue current medications and ongoing management per neurology both locally and at [facility] Assessment & Plan (03/16/2021 2:16 [...] seen in a local ER; records from [facility] reviewed at the time of this [...] seen in a local ER; records from [facility] reviewed at the time of this visit She was treated with Reglan, Benadryl and Toradol She is currently taking ibuprofen with improvement of symptoms She is advised to begin magnesium as discussed I resent her prescription for imitrex to [facility] where this will be less expensive We will reassess in 1 week or sooner with any decline in symptoms We will refer to neurology for their input Assessment & Plan (08/12/2020 9:42 AM EST): Persistent frontal migraine for the last week No injury or trauma prior to onset No vision changes Nonresponsive to eery-wwb-qfxzvkh medications that typically provide relief No associated [...] plan to proceed with bariatric surgery at [facility] Preop paperwork completed today She is an acceptable surgical risk Assessment & Plan (11/15/2020 8:04 AM EDT): Ongoing inability to lose weight Admittedly she has not been very active due to issues with migraines She is referred to bariatric surgery at [facility] Contact info given and she is [...] will proceed with diagnostic mammogram and ultrasound Immunizations Immunization Administration Dates Next Due COVID-19 [...] 2024 INFLUENZA VACCINE (#1) 2025 COVID-19 VACCINE (3 2024-2 6 season) 2025 12/20/2020, 11/19/2020 HIV ONE-TIME [...] SEE NARRATIVE - 03/30/2021 8:43 [place] [address] Oncology Rep: Ayden Morel MD SPRING TESTER Cytology Report FINAL DIAGNOSIS A. CERVICAL, LIQUID BASED SPECIMEN: SPECIMEN ADEQUACY: Satisfactory for evaluation; transformation zone present. INTERPRETATION: NEGATIVE FOR INTRAEPITHELIAL LESION OR MALIGNANCY. Reactive changes. Coccobacilli consistent with shift in delfina This specimen was analyzed by the automated ThinPrep Imaging System (Kymab.) and manually rescreened by a sample tailor and/or pathologist. Electronically Signed Out By: MD [...] cytotech screening of this specimen performed at [facility], [address] [place] [address]. Professional services provided by Pathology [facility] [place] [address]. Sonia Ordaz MD, Administrative Sales Assistant Patient Name: YAS WORTHINGTON : 1985 (Age: 35) Sex: F Institution: [facility] Location: [facility] Date of Collection: 03/16/2021 Date of Reported: 03/30/2021 08:43 Ordered By: Greer Perez KEYBOARD SPECIALIST Copy To: Greer Beltran CNP CYTOLOGY ORDERABLES Final Re sult Performing Organization Address City/[facility] Co de Phone Number SEE NARRATIVE * Hepatitis C antibody, qualitative (02/16/2021 8:12 AM EDT) HCV ANTIBODY Non-Reacti ve Non-Reacti ve [facility] Blood 02/16/2021 8:12 AM EDT 02/16/2021 8:23 AM EDT Greer Beltran CNP LAB BLOOD ORDERABLES Final R esult Performing Organization Address [facility] Co de Phone Number [facility] [address] [place] [address], [facility] from Last 3 Months or Most Recently Relevant to Health Maintenance Insurance [facility] MY CARE FAMILY [employer] MY CARE FAMILY ACO MGBHP MY CARE FAMILY ACO MGBHP MY CARE FAMILY ACO MGBHP MY CARE FAMILY ACO MGBHP MY CARE FAMILY ACO [facility] C[facility] MY CARE FAMILY ACO Care Teams Nutter Up Relationship Specialty Start Date End Date Pcp, Unknown PCP - General 12/23/24 Eren Mcpherson MD [address] [id number] [email or web address] Historical LMR Provider 08/07/18 Garo Crowell MD [address] [place] [address] [email or web address] Primary Oncologist Medical Oncology 06/21/20 Megan Guevara, JOANNE [address] [place] [phone] PRITI@[email or web address] Primary Infusion Nurse 08/05/20 Marija Fair RN [address] [place] [phone] [email or web address] Associate Infusion Nurse 08/09/20 Vy Summers RN [address] [place] [phone] LAWANDA@[email or web address] Nurse Navigator Oncology 10/11/20 Alessandra German, JOANNE [address] [place] [phone] [email or web address] Associate Infusion Nurse 05/16/21 Martha Méndez CNP [address] [place] [phone] [email or web address] Oncology 05/22/21 Additional Source Comments The information contained in this document represents components of the legal health record. It is not the complete legal health record.[facility]
--- OUTSIDE RECORDS SUMMARY | 2025-04-26 10:23 | XMS_ITS | Encounter Summary ---
Author Organization [facility] Address [address] [place] [phone] Phone Care Team Providers Care Mail Order Clerk Name Role Phone Eren Mcpherson MD Unavailable Garo Crowell MD Unavailable Megan Guevara RN Unavailable BRONWYN [email or web address] Marija Fair RN Unavailable GISELLE FOOTE@[email or web address] Greer Beltran PRODUCT SAFETY HEAD Primary Care Provider [phone] Vy Summers RN Unavailable TRAMAINE MARTE@[email or web address].[place] Eren Mcpherson MD Unavailable Alessandra German RN Unavailable Marisabel [email or web address] Martha Méndez PRODUCT SAFETY HEAD Unavailable [phone] Marc Meneses DO Unavailable Pcp, Unknown Primary Care Provider Unavailabl e Encounter Details Date Type Department Care Team (Late st Contact Info) Description 08/26/2020 Procedure Pass [facility] - Radiology - [place] [address] [place] [address] Social History Tobacco Use Types Packs/Day Years [...] documented as of this encounter Care Teams Mail Order Clerk Relationship Specialty Start Date End Date Greer Beltran CNP [address] [place] [phone] [email or web address] PCP - General Family Medicine 08/11/20 12/22/24 Pcp, Unknown PCP - General 12/23/24 Eren Mcpherson MD [address] [place] [id number] [email or web address] Historical LMR Provider 08/07/18 Garo Croewll MD [address] [place] [phone] [email or web address] Primary Oncologist Medical Oncology 06/21/20 Megan Guevara RN [address] [place] [phone] PRITI@[email or web address] Primary Infusion Nurse 08/05/20 Marija Fair RN [address] [place] [address] YUAN@[facility] Associate Infusion Nurse 08/09/20 Vy Summers RN [address] [place] [address] [phone] LAWANDA@[facility] Nurse Navigator Oncology 10/11/20 Eren Mcpherson MD [address] [place] [address] [email or web address] Insurance Assigned Provider 12/11/20 09/10/21 Alessandra German RN [address] [place] [phone] [email or web address] Associate Infusion Nurse 05/16/21 Martha Méndez CNP [address] [place] [phone] ROBERT@[email or web address] Oncology 05/22/21 Marc Meneses DO [address] [place] [phone] Insurance Assigned Provider 12/15/22 04/13/23 documented as of this encounter Additional Source Comments The information contained in this document represents components of the legal health record. It is not the complete legal health record.[facility]
== END 2025-04-26 10:09 | disposition home or self-care (01) ==
LOC: HO.HBST 09:13
PROVIDERS: PCP Internal Medicine; Visit Provider Counselor Mental Health
DX: F43.20 Adjustment disorder, unspecified (principal)
CPT/HCPCS: 90837

== ENCOUNTER 2025-05-14 10:56 | Outpatient (AMB) | payer OTHER, SELFPAY ==
--- NOTE | 2025-05-14 10:51 | MHC.OFFVISWM ---
VS Expanded 05/14/25 10:57 Height 5 ft 3 in Weight 235 lb BMI 41.6 Intake Visit Reasons: Phone PO LSG 02/25/25 Allergies codeine Allergy (Verified 03/23/25 14:14) Hives HPI Comments Details: This?is a?39?yo F who is s/p LSG 02/25/2025. Presents for 3mo post op visit. Weight at last visit on 04/02/2025 was 242.5 pounds; weight today is 235 pounds, representing a 7.5 pound weight loss with a BMI today of 41.6.? No complaints of nausea, emesis, abdominal pain or reflux. Struggling with constipation- has tried ExLax but not completely helpful. Continues to monitor BP and communicating with Dr Kristal harris. Present meal plan includes: Celebrate or Ensure Clear protein drinks protein bar or 1 egg Exercise routine includes: wakes at 1:30am to exercise- bike 550 calories 5x week PFSH Medical History BMI 50.0-59.9, adult Anemia Morbid obesity Surgical History Hx of bariatric surgery History of esophagogastroduodenoscopy (EGD) History of tendonitis History of ovarian cyst Family History Mother Diabetes Hypertension Father No problems noted. 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[employer] Current occupational exposures/hazards: No Sexual orientation: Straight/Heterosexual Gender identity: Female Cognitive needs: No Hearing needs: No Vision needs: Yes Telehealth Telehealth Telehealth Platform: Telephone Location of provider rendering services: other Location of patient: address on file Patient Identification confirmed using: Name, : Yes Telehealth method: voice only Patient verbally consented to treatment: Yes Patient verbally consented to billing insurance company: Yes Patient informed of any privacy concerns related to visit: Yes Minutes spent on Phone/Video with Pt.: 13 Assessment & Plan Assessment & Plan (1) S/P laparoscopic sleeve gastrectomy: Code(s): Z98.84 - Bariatric surgery status Category: Surgical (2) Obesity: Code(s): E66.9 - Obesity, unspecified Category: Medical Plan Pt to continue checking in with Dr Giraldo for nutrition plan, BP measurements. Will order Miralax, pt can take BID. PPI and carafate to complete this month. RTC in Aug for 15min TV. Medications: New polyethylene glycol 3350 (Miralax) 17 grams PO BID 30 ea 3RF
[2025-05-14 10:57] VITALS: BMI 41.6
--- OUTSIDE RECORDS SUMMARY | 2025-05-14 13:09 | XMS_ITS | Encounter Summary ---
Author Organization [facility] Address [address] [place] [phone] Phone Care Team Providers Care Oim Consultant Name Role Phone Eren Mcpherson MD Unavailable Garo Crowell MD Unavailable Megan Guevara RN Unavailable BRONWYN [email or web address].[facility] Marija Fair RN Unavailable GISELLE FOOTE@[facility].[place].[facility] Greer Beltran GROUNDSKEEPING MAINTENANCE Primary Care Provider [phone] Vy Summers RN Unavailable TRAMAINE MARTE@[facility].[email or web address].[facility] Eren Mcpherson MD Unavailable Alessandra German RN Unavailable Marisabel [email or web address] Martha Méndez GROUNDSKEEPING MAINTENANCE Unavailable [phone] Marc Meneses DO Unavailable Pcp, Unknown Primary Care Provider Unavailabl e Encounter Details Date Type Department Care Team (Late st Contact Info) Description 08/26/[address] [facility] - Radiology - [place] [address] [place] [address] Social History Tobacco Use Types Packs/Day Years [...] documented as of this encounter Care Teams Oim Consultant Relationship Specialty Start Date End Date Greer Beltran CNP [address] [place] [phone] [email or web address] PCP - General Family Medicine 08/11/20 12/22/24 Pcp, Unknown PCP - General 12/23/24 Eren Mcpherson MD [address] [place] [phone] [email or web address] Historical LMR Provider 08/07/18 Garo Crowell MD [address] [place] [phone] [email or web address] Primary Oncologist Medical Oncology 06/21/20 Megan Guevara RN [address] [place] [phone] PRITI@[facility] Primary Infusion Nurse 08/05/20 Marija Fair RN [address] [place] [phone] YUAN@[email or web address] Associate Infusion Nurse 08/09/20 Vy Summers RN [address] [place] [phone] LAWANDA@[facility] Nurse Navigator Oncology 10/11/20 Eren Mcpherson MD [address] [place] [address] [email or web address]@[employer] Insurance Assigned Provider 12/11/20 09/10/21 Alessandra German RN [address] [place] [phone] [email or web address] Associate Infusion Nurse 05/16/21 Martha Méndez CNP [address] [place] [phone] ROBERT@[facility] Oncology 05/22/21 Marc Meneses DO [address] [place] [phone] Insurance Assigned Provider 12/15/22 04/13/23 documented as of this encounter Additional Source Comments The information contained in this document represents components of the legal health record. It is not the complete legal health record.[facility]
--- OUTSIDE RECORDS SUMMARY | 2025-05-14 13:09 | XMS_ITS | Patient Health Record ---
Author Organization [facility] Address [address] [phone] Care Team Providers Care Time Analysis Clerk Name Role Phone Rex FLOWERS, [facility] Primary Care Provider Ludwin Sanchez [phone] Reason For Referral No Information Plan Of Treatment No Information Insurance Providers Payer Name Payer Address Payer Phone Subscriber Number Group Number Insured Name Patient Relationship to Insured Coverage Start Date Coverage End Date [facility] [address] [address] [place] [address] [id number] Yas Worthington Self - patient is the insured Medical (General) History Surgical History 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
--- OUTSIDE RECORDS SUMMARY | 2025-05-14 13:09 | XMS_ITS | Clinical Summary ---
Author Organization [facility] Address [address] [place] [address] Phone Care Team Providers Care Family Physician Name Role Phone Eren Mcpherson MD Unavailable Garo Crowell MD Unavailable Megan Guevara RN Unavailable BRONWYN [email or web address] Marija Fair RN Unavailable GISELLE FOOTE@[email or web address].[email or web address] Vy Summers RN Unavailable TRAMAINE MARTE@[email or web address].[email or web address] Alessandra German RN Unavailable Marisabel [email or web address] Martha Méndez DOUBLE NEEDLE STITCHER Unavailable [phone] Pcp, Unknown Primary Care Provider Unavailabl e [...] Has been unrevealing She was referred to [facility] for additional testing options She is advised to continue current medications and ongoing management per neurology both locally and at [facility] Assessment & Plan (03/16/2021 2:16 PM EDT): [...] seen in a local ER; records from [facility] reviewed at the time of [...] seen in a local ER; records from [facility] reviewed at the time of this visit She was treated with Reglan, Benadryl and Toradol She is currently taking ibuprofen with improvement of symptoms She is advised to begin magnesium as discussed I resent her prescription for imitrex to [facility] where this will be less expensive We will reassess in 1 week or sooner with any decline in symptoms We will refer to neurology for their input Assessment & Plan (08/12/2020 9:42 AM EST): Persistent frontal migraine for the last week No injury or trauma prior to onset No vision changes Nonresponsive to icxz-hac-kkobnyz medications that typically provide relief No associated [...] plan to proceed with bariatric surgery at [facility] Preop paperwork completed today She is an acceptable surgical risk Assessment & Plan (11/15/2020 8:04 AM EDT): Ongoing inability to lose weight Admittedly she has not been very active due to issues with migraines She is referred to bariatric surgery at [facility] Contact info given and she [...] SEE NARRATIVE - 03/30/2021 8:43 [place] [address] Geospatial Systems Integrator: Ayden Morel MD MARINE MACHINIST Cytology Report FINAL DIAGNOSIS A. CERVICAL, LIQUID BASED SPECIMEN: SPECIMEN ADEQUACY: Satisfactory for evaluation; transformation zone present. INTERPRETATION: NEGATIVE FOR INTRAEPITHELIAL LESION OR MALIGNANCY. Reactive changes. Coccobacilli consistent with shift in delfina This specimen was analyzed by the automated ThinPrep Imaging System ([employer].) and manually rescreened by a renewable energy division manager and/or pathologist. Electronically Signed Out By: MD [...] cytotech screening of this specimen performed at [facility], [address] [place] [address]. Professional services provided by [facility] [place] [address]. Sonia Ordaz MD, Nurse Case Manager Patient Name: YAS WORTHINGTON : 1985 (Age: 35) Sex: F Institution: [facility] Location: [facility] Date of Collection: 03/16/2021 Date of Reported: 03/30/2021 08:43 Ordered By: Greer Perez FLEXOGRAPHIC PRESS PLATE SETTER Copy To: Greer Beltran CNP CYTOLOGY ORDERABLES Final Re sult Performing Organization Address City/[facility] Co de Phone Number SEE NARRATIVE * Hepatitis C antibody, qualitative (02/16/2021 8:12 AM EDT) HCV ANTIBODY Non-Reacti ve Non-Reacti ve [facility]YSIC[facility] Blood 02/16/2021 8:12 AM EDT 02/16/2021 8:23 AM EDT Greer Beltran CNP LAB BLOOD BKR ORDERABLES Fin al Result Performing Organization Address [facility] Co de Phone Number [address] [phone], [facility] from Last 3 Months or Most Recently Relevant to Health Maintenance Insurance [facility] MY CARE FAMILY ACO M[employer] MY CARE FAMILY ACO MGBHP MY CARE FAMILY ACO MGBHP MY CARE FAMILY ACO MGBHP MY CARE FAMILY ACO MGBHP MY CARE FAMILY ACO MGBHP MY CARE FAMILY ACO [facility] MY CARE FAMILY ACO [facility] Care Teams Family Physician Relationship Specialty Start Date End Date Pcp, Unknown PCP - General 12/23/24 Eren Mcpherson MD [address] [place] [phone] COLT@[email or web address] Historical LMR Provider 08/07/18 Garo Crowell MD [address] [place] [address] ARJUN@[email or web address] Primary Oncologist Medical Oncology 06/21/20 Megan Guevara, JOANNE [address] [place] [phone] PRITI@[facility] Primary Infusion Nurse 08/05/20 Marija Fair RN [address] [place] [phone] YUAN@[facility] Associate Infusion Nurse 08/09/20 Vy Summers, JOANNE [address] [place] [phone] LAWANDA@[facility] Nurse Navigator Oncology 10/11/20 Aelssandra German, JOANNE [address] [place] [phone] Madina@[email or web address] Associate Infusion Nurse 05/16/21 Martha Méndez CNP [address] [place] [phone] ROBERT@[facility] Oncology 05/22/21 Additional Source Comments The information contained in this document represents components of the legal health record. It is not the complete legal health record.[facility]
--- OUTSIDE RECORDS SUMMARY | 2025-05-14 13:09 | XMS_ITS ---
Author Organization [facility] Address [address] [facility] [place] [address] [place] [address] Phone Care Team Providers Care Wire Insulator Name Role Phone Eren Mcpherson MD Unavailable Garo Crowell MD Unavailable Megan Guevara RN Unavailable BRONWYN MOONEY@[email or web address].[email or web address] Marija Fair RN Unavailable GISELLE FOOTE@[facility].[place].[facility] Vy Summers RN Unavailable TRAMAINE MARTE@[facility].[place].[facility] Alessandra German RN Unavailable Marisabel [email or web address] Martha Méndez ATTENDANT CHILD ACTIVITY Unavailable [phone] Pcp, Unknown Primary Care Provider Unavailabl e [...] Has been unrevealing She was referred to [facility] for additional testing options She is advised to continue current medications and ongoing management per neurology both locally and at [facility] Assessment & Plan (03/16/2021 2:16 PM [...] seen in a local ER; records from [facility] reviewed at the time of this [...] seen in a local ER; records from [facility] reviewed at the time of this visit She was treated with Reglan, Benadryl and Toradol She is currently taking ibuprofen with improvement of symptoms She is advised to begin magnesium as discussed I resent her prescription for imitrex to [facility] where this will be less expensive We will reassess in 1 week or sooner with any decline in symptoms We will refer to neurology for their input Assessment & Plan (08/12/2020 9:42 AM EST): Persistent frontal migraine for the last week No injury or trauma prior to onset No vision changes Nonresponsive to esvd-vyw-pdjkput medications that typically provide relief No associated [...] plan to proceed with bariatric surgery at [facility] Preop paperwork completed today She is an acceptable surgical risk Assessment & Plan (11/15/2020 8:04 AM EDT): Ongoing inability to lose weight Admittedly she has not been very active due to issues with migraines She is referred to bariatric surgery at [facility] Contact info given and she is [...]
== END 2025-05-14 11:04 | disposition home or self-care (01) ==
LOC: HO.HBS 10:56
PROVIDERS: PCP Internal Medicine; Visit Provider Physician Assistant Surgical
DX: E66.01 Morbid (severe) obesity due to excess calories (principal); Z68.41 Body mass index [BMI] 40.0-44.9, adult; Z98.84 Bariatric surgery status; Z90.3 Acquired absence of stomach [part of]
CPT/HCPCS: 99024

== ENCOUNTER 2025-05-24 09:27 | Outpatient (AMB) | payer OTHER, SELFPAY ==
--- NOTE | 2025-05-24 09:10 | A.OFFWM_ITS ---
Intake Intake Visit Reasons: VIDEO PO LSG 02/25/25 Allergies codeine Allergy (Verified 03/23/25 14:14) Hives [facility] Medical History BMI 50.0-59.9, adult Anemia Morbid obesity Surgical History Hx of bariatric surgery History of esophagogastroduodenoscopy (EGD) History of tendonitis History of ovarian cyst Family History Mother Diabetes Hypertension Father No problems noted. 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 She notes that a recent change in her work position has had a positive impact on her mood and overall mental health. Regarding her nutrition, she is prescribed a meal plan of four shakes per day but typically consumes two to three shakes and one meal, occasionally skipping a shake. Her current weight is 230 lbs, and she continues to send in her weight measurements every as part of her ongoing monitoring. Objective: The patient presented for a post-operative behavioral health follow-up. During the session, we discussed her current functioning, progress, and ongoing challenges with mood, particularly related to seasonal changes. Cognitive- behavioral interventions were used to help her identify barriers to adherence with her meal plan and to collaboratively problem-solve alternative strategies for maintaining consistency. We also processed her experience of body image changes following weight loss, noting that while others recognize her progress, she is still adjusting to her new appearance. Psychoeducation was provided on the use of a light therapy lamp to help manage seasonal mood symptoms, with a recommendation to use it twice daily for 10 minutes. The patient was receptive to these interventions and engaged in the session with insight and motivation. Assessment/Response: * Mental status: Alert, cooperative, and appropriately groomed. Mood described as ?good, but a bit down with the season.? Affect congruent. Thought process logical and goal-directed. No suicidal or homicidal ideation. No evidence of psychosis. Insight and judgment intact. * Risk reported/identified: No current safety concerns or risk behaviors identified. Assessment & Plan Assessment & Plan (1) Adjustment disorder: Code(s): F43.20 - Adjustment disorder, unspecified Plan Continue post-operative behavioral health support, focusing on mood management, body image adjustment, and adherence to nutritional recommendations. Next appointment scheduled for 07/19/2024 at 9am, with a 6-8 week interval due to provider absence in June. Telehealth Telehealth Telehealth Platform: [facility] Location of provider rendering services: other (Home office. [place], [place]) Location of patient: address on file Patient Identification confirmed using: Name, : Yes Telehealth method: video Patient verbally consented to treatment: Yes Patient verbally consented to billing insurance company: Yes Patient informed of any privacy concerns related to visit: Yes Minutes spent on Phone/Video with Pt.: 50 [place] [address] Tele Psytx 45 mins Patient Type Established Diagnoses Adjustment disorder F43.20 Time Spent (min) 50
== END 2025-05-24 10:17 | disposition home or self-care (01) ==
LOC: HO.HBST 09:27
PROVIDERS: PCP Internal Medicine; Visit Provider Counselor Mental Health
DX: F43.20 Adjustment disorder, unspecified (principal)
CPT/HCPCS: 90834

== ENCOUNTER 2025-06-08 12:01 | Outpatient (REF) | payer OTHER, SELFPAY ==
--- NOTE | ~2025-06-08 | US_ITS ---
CLINICAL HISTORY: N93.9 - Abnormal uterine and vaginal bleeding, unspecified US pelvis transabdominal and transvaginal with Doppler Comparison: US/SR - US ABDOMEN COMP W ELASTOGRAPHY - 12/30/24 07:30 EDT Findings: Transabdominal scanning performed for overall anatomy. Transvaginal scanning performed for additional detail. Anteverted uterus is 8.1 cm length. Normal myometrium. No endometrial lesion, 18 mm thickness. Intrauterine device is not seen. Right ovary is not seen Left ovary 2.6 x 1.8 x 2.8 cm. Posterior exophytic cyst measuring 6 mm. Possible corpus luteal cyst measuring 23 mm. Normal color Doppler with arterial/venous imaging of the right adnexa and left ovary. No free fluid. IMPRESSION: 1. Endometrial thickening, possibly indicating hyperplasia or malignancy. 2. Nonvisualization of intrauterine device. This document has been electronically signed by: Roxane Zendejas MD on 06/08/2025 15:58:05
--- OUTSIDE RECORDS SUMMARY | 2025-06-08 14:10 | XMS_ITS ---
Author Organization [facility] Address [address] [facility] [address] [place] [phone] Phone Care Team Providers Care Copy Director Name Role Phone Eren Mcpherson MD Unavailable Garo Crowell MD Unavailable Megan Guevara RN Unavailable BRONWYN MOONEY@[email or web address].[email or web address] Marija Fair RN Unavailable GISELLE FOOTE@[facility].[place] Vy Summers RN Unavailable TRAMAINE MARTE@[facility].[place] Alessandra German RN Unavailable Marisabel [email or web address] Martha Méndez RADARMAN Unavailable [phone] Pcp, Unknown Primary Care Provider Unavailabl e [...] Has been unrevealing She was referred to [facility] for additional testing options She is advised to continue current medications and ongoing management per neurology both locally and at [facility] Assessment & Plan (03/16/2021 2:16 [...] seen in a local ER; records from [facility] reviewed at the time of [...] seen in a local ER; records from [facility] reviewed at the time of this visit She was treated with Reglan, Benadryl and Toradol She is currently taking ibuprofen with improvement of symptoms She is advised to begin magnesium as discussed I resent her prescription for imitrex to [facility] where this will be less expensive We will reassess in 1 week or sooner with any decline in symptoms We will refer to neurology for their input Assessment & Plan (08/12/2020 9:42 AM EST): Persistent frontal migraine for the last week No injury or trauma prior to onset No vision changes Nonresponsive to oixk-mwl-ymmcugs medications that typically provide relief No associated [...] plan to proceed with bariatric surgery at [facility] Preop paperwork completed today She is an acceptable surgical risk Assessment & Plan (11/15/2020 8:04 AM EDT): Ongoing inability to lose weight Admittedly she has not been very active due to issues with migraines She is referred to bariatric surgery at [facility] Contact info given and she [...]
--- OUTSIDE RECORDS SUMMARY | 2025-06-08 14:10 | XMS_ITS | Clinical Summary ---
Author Organization [facility] ity Address [address] [place] [address] Care Team Providers Care Underwater Trapper Name Role Phone Unavailable Primary Care Provider [...] Depression Screening 07/08/2024 COVID-19 Vaccine ( - 2024-2 6 season) 2025 Influenza Vaccine (#1) 2025 RSV [...]
--- OUTSIDE RECORDS SUMMARY | 2025-06-08 14:11 | XMS_ITS | Clinical Summary ---
Author Organization [facility] Address [address] [place] [address] Phone Care Team Providers Care Magazine Hand Name Role Phone Eren Mcpherson MD Unavailable Garo Crowell MD Unavailable Megan Guevara RN Unavailable BRONWYN [email or web address] Marija Fair RN Unavailable GISELLE FOOTE@[email or web address] Vy Summers RN Unavailable TRAMAINE [email or web address] Alessandra German RN Unavailable Marisabel [email or web address] Martha Méndez DEMONSTRATOR ELECTRIC GAS APPLIANCES Unavailable [phone] Pcp, Unknown Primary Care Provider Unavailabl e [...] Has been unrevealing She was referred to [facility] for additional testing options She is advised to continue current medications and ongoing management per neurology both locally and at [facility] Assessment & Plan (03/16/2021 2:16 PM [...] I resent her prescription for imitrex to [facility]NOTE 3] where this will be less expensive We will reassess in 1 week or sooner with any decline in symptoms We will refer to neurology for their input Assessment & Plan (08/12/2020 9:42 AM EST): Persistent frontal migraine for the last week No injury or trauma prior to onset No vision changes Nonresponsive to zpmg-wrl-iaetukt medications that typically provide relief No associated [...] plan to proceed with bariatric surgery at [facility] Preop paperwork completed today She [...] SEE NARRATIVE - 03/30/2021 8:43 [place] [address] Supervisor In Circuit Testing: Ayden Morel MD RAMPMAN Cytology Report FINAL DIAGNOSIS A. CERVICAL, LIQUID BASED SPECIMEN: SPECIMEN ADEQUACY: Satisfactory for evaluation; transformation zone present. INTERPRETATION: NEGATIVE FOR INTRAEPITHELIAL LESION OR MALIGNANCY. Reactive changes. Coccobacilli consistent with shift in delfina This specimen was analyzed by the automated ThinPrep Imaging System ([employer].) and manually rescreened by a senior mechanical development engineer and/or pathologist. Electronically Signed Out By: MD [...] cytotech screening of this specimen performed at [facility], [address] [place] [address]. Professional services provided by [facility] [place] [address]. Sonia Ordaz MD, Assistant Store Director Patient Name: YAS WORTHINGTON : 1985 (Age: 35) Sex: F Institution: [facility] Location: [facility] Date of Collection: 03/16/2021 Date of Reported: 03/30/2021 08:43 Ordered By: Greer Perez CLAMP TRUCK DRIVER Copy To: Greer Beltran CNP CYTOLOGY ORDERABLES Final Re sult Performing Organization Address City/[facility] Co de Phone Number SEE NARRATIVE * Hepatitis C antibody, qualitative (02/16/2021 8:12 AM EDT) HCV ANTIBODY Non-Reacti ve Non-Reacti ve [facility] Blood 02/16/2021 8:12 AM EDT 02/16/2021 8:23 AM EDT Greer Beltran CNP LAB BLOOD BKR ORDERABLES Fin al Result Performing Organization Address [facility] Co de Phone Number [address] [address], [facility] from Last 3 Months or Most Recently Relevant to Health Maintenance Insurance [facility] MY CARE FAMILY ACO MGBHP MY CARE FAMILY ACO MGBHP MY CARE FAMILY ACO MGBHP MY CARE FAMILY ACO MGBHP MY CARE FAMILY ACO MGBHP MY CARE FAMILY ACO MGBHP MY CARE FAMILY ACO [facility] MY CARE FAMILY ACO [facility] MY CARE FAMILY ACO Care Teams Magazine Hand Relationship Specialty Start Date End Date Pcp, Unknown PCP - General 12/23/24 Eren Mcpherson MD [address] [place] [id number] [email or web address] LMR Provider 08/07/18 Garo Crowell MD [address] [place] [phone] [email or web address] Primary Oncologist Medical Oncology 06/21/20 Megan Guevara, JOANNE [address] [place] [phone] PRITI@[email or web address] Primary Infusion Nurse 08/05/20 Marija Fair RN [address] [place] [address] YUAN@[facility] Associate Infusion Nurse 08/09/20 Vy Summers, JOANNE [address] [place] [address] LAWANDA@[email or web address] Nurse Navigator Oncology 10/11/20 Alessandra German, JOANNE [address] [place] [address] [email or web address] Associate Infusion Nurse 05/16/21 Martha Méndez CNP [address] [place] [phone] ROBERT@[email or web address] Oncology 05/22/21 Additional Source Comments The information contained in this document represents components of the legal health record. It is not the complete legal health record.[facility]
--- OUTSIDE RECORDS SUMMARY | 2025-06-08 14:11 | XMS_ITS | Encounter Summary ---
Author Organization [facility] Address [address] [place] [address] Phone Care Team Providers Care Driver Medic Name Role Phone Eren Mcpherson MD Unavailable Garo Crowell MD Unavailable Megan Guevara RN Unavailable BRONWYN [email or web address] Marija Fair RN Unavailable GISELLE [email or web address].[facility] Greer Beltran SUSTAINABLE DESIGN COORDINATOR Primary Care Provider [phone] Vy Summers RN Unavailable TRAMAINE [email or web address].[facility] Eren Mcpherson MD Unavailable Alessandra German RN Unavailable Marisabel [email or web address] Martha Méndez SUSTAINABLE DESIGN COORDINATOR Unavailable [phone] Marc Meneses DO Unavailable Pcp, Unknown Primary Care Provider Unavailabl e Encounter Details Date Type Department Care Team (Late st Contact Info) Description 08/26/2020 Procedure Pass [facility] - [place] [address] [place] [address] Social History Tobacco Use Types Packs/Day Years [...] documented as of this encounter Care Teams Driver Medic Relationship Specialty Start Date End Date Greer Beltran CNP [address] [place] [address] [email or web address] PCP - General Family Medicine 08/11/20 12/22/24 Pcp, Unknown PCP - General 12/23/24 Eren Mcpherson MD [address] [place] [phone] [email or web address] Historical LMR Provider 08/07/18 Garo Crowell MD [address] [place] [address] [email or web address] Primary Oncologist Medical Oncology 06/21/20 Megan Guevara RN [address] [place] [address] PRITI@[email or web address] Primary Infusion Nurse 08/05/20 Marija Fair RN [address] [place] [address] YUAN@[facility] Associate Infusion Nurse 08/09/20 Vy Summers RN [address] [place] [address] LAWANDA@[email or web address] Nurse Navigator Oncology 10/11/20 Eren Mcpherson MD [address] [place] [address] [email or web address] Insurance Assigned Provider 12/11/20 09/10/21 Alessandra German RN [address] [place] [address] [email or web address] Associate Infusion Nurse 05/16/21 Martha Méndez CNP [address] [place] [address] [email or web address] LICENSE OF [facility] Oncology 05/22/21 Marc Meneses DO [address] [place] [phone] Insurance Assigned Provider 12/15/22 04/13/23 documented as of this encounter Additional Source Comments The information contained in this document represents components of the legal health record. It is not the complete legal health record.[facility]
== END 2025-06-08 12:02 | disposition home or self-care (01) ==
LOC: HO.US 12:01
PROVIDERS: PCP Internal Medicine; Visit Provider Obstetrics & Gynecology
DX: N93.9 Abnormal uterine and vaginal bleeding, unspecified (principal)
CPT/HCPCS: 76830; 76856

== ENCOUNTER → 2025-06-08 12:04 | Outpatient (BNV) | payer OTHER, SELFPAY | PROVIDERS: PCP Internal Medicine; Visit Provider Radiology Diagnostic Radiology | DX: N93.9 Abnormal uterine and vaginal bleeding, unspecified (principal); N85.00 Endometrial hyperplasia, unspecified | CPT/HCPCS: 76830; 76856 ==

== ENCOUNTER 2025-07-07 13:13 | Outpatient (REF) | payer OTHER, SELFPAY | END 2025-07-07 13:14 | disposition home or self-care (01) | LOC: HO.LNP 13:13 | PROVIDERS: PCP Internal Medicine; Visit Provider Obstetrics & Gynecology | DX: T83.32XA Displacement of intrauterine contraceptive device, initial encounter (principal); N93.9 Abnormal uterine and vaginal bleeding, unspecified; Z32.02 Encounter for pregnancy test, result negative | CPT/HCPCS: 58100; 81025; 88305; 99212 ==

== ENCOUNTER 2025-07-07 13:13 | Outpatient (AMB) | payer OTHER, SELFPAY ==
[2025-07-07 13:30] VITALS: BP 124/76; BMI 41.6
--- NOTE | 2025-07-07 13:30 | MHC.OFFVIS ---
Vital Signs 07/07/25 13:30 Height 5 ft 3 in Weight 235 lb BMI 41.6 BP 124/76 Intake Visit Reasons: ultrasound results/ ? EMB Maintenance Mechanic Supervisor Required: No Information Interpreted: non-clinical & clinical Remote Sensing Specialist: Remote Sensing Specialist Present (Leana KHANNA) Accompanied by: Self / Same As Patient Allergies codeine Allergy (Verified 07/07/25 13:36) Hives HPI Comments Details: Presenting for ultrasound follow-up and EMB. Pelvic ultrasound showed the following: Anteverted uterus is 8.1 cm length. Normal myometrium. No endometrial lesion, 18 mm thickness. Intrauterine device is not seen. Right ovary is not seen Left ovary 2.6 x 1.8 x 2.8 cm. Posterior exophytic cyst measuring 6 mm. Possible corpus luteal cyst measuring 23 mm. Normal color Doppler with arterial/venous imaging of the right adnexa and left ovary. No free fluid. IMPRESSION: 1. Endometrial thickening, possibly indicating hyperplasia or malignancy. 2. Nonvisualization of intrauterine device [facility] Medical History BMI 50.0-59.9, adult Anemia Morbid obesity Surgical History Hx of bariatric surgery History of esophagogastroduodenoscopy (EGD) History of tendonitis History of ovarian cyst Family History Mother Diabetes Hypertension Father No problems noted. Paternal Grandmother Breast cancer Social History Household Members: Spouse Housing: Apartment Are you a primary nursing care attendant to a significant other at home: No Do you presently have visiting nurse or other home services: No Alcohol intake: current Alcohol intake frequency: does not drink Alcohol type: hard liquor Patient Tobacco Use Status: Never used Tobacco e-Cigarette/Vaping Use: Never Used Second Hand Smoke Exposure: No service: No Current occupational status: employed Current occupation: Billing at [employer] Current occupational exposures/hazards: No Sexual orientation: Straight/Heterosexual Gender identity: Female Cognitive needs: No Hearing needs: No Vision needs: Yes Review of Systems Const All systems reviewed & are unremarkable except as noted in HPI and below Reports as per HPI and Reports no additional complaints GI Reports no additional complaints Reports no additional complaints Physical Exam Vital Signs: BMI result Body Mass Index 41.6 Office Procedures Endometrial Biopsy Details: The patient was counseled regarding the indication and benefits of endometrial sampling to rule out endometrial pathology including not limited to endometrial hyperplasia or endometrial cancer and others; The alternatives (Either do nothing vs. hysteroscopy D&C) & the risks were discussed with the patient including but not limited: pain, uterine perforation, bleeding, infection, possible injury to bladder, bowel, ureter, possible need for blood transfusion with all its possible risks. The patient verbalized understanding all questions answered and signed consent. Urine test done in the office was negative The patient was placed into the dorsal lithotomy position; a speculum was inserted in the vagina. Using aseptic technique for the procedure, the cervix was cleansed with Betadine. The anterior lip of the cervix was grasped with a single tooth tenaculum. The uterus was sounded to 7 cm with a 4 mm Pipelle was used. Tissues samples were obtained and placed in formalin, in a patient labeled container and sent to the pathology department. At the end of the procedure, there was minimal bleeding noted The patient tolerated the procedure well and was discharged in good condition with the following instructions: Nothing in the vagina until the bleeding stops. No sex until the bleeding stops, to call if any of the following occurs: fever (>100.4), flu-like symptoms, abdominal pain, heavy bleeding, four smelling vaginal discharge. The patient was instructed to schedule a Follow up appointment in 2 weeks to discuss pathology results of the biopsy and treatment options. This note was generated with a voice recognition program. Some errors may have been overlooked during the review of this note. Sometimes these errors may affect the content or meaning of a given sentence. 97062-Ciihqoxbdqc Biopsy Results AMB Test Urine AMB Test Urine Negative Last Edit by Leana Phillips CMA on 07/07/25 13:56 Assessment & Plan Assessment & Plan (1) IUD strings lost: Code(s): T83.32XA - Displacement of intrauterine contraceptive device, initial encounter Category: Medical Plan: Discussed with the patient none visualization of the IUD by ultrasound, will order KUB to confirm expulsion and rule out intrapelvic displacement. Instructions given the patient to schedule a follow-up appointment within 2 weeks All questions answered, the patient verbalized understanding (2) Abnormal uterine bleeding (AUB): Code(s): N93.9 - Abnormal uterine and vaginal bleeding, unspecified Category: Medical Plan: EMB done, see procedure note Orders: Orders AMB HCG Urine Test Today Z32.02 - Encounter for test, result negative XR KUB Today T83.32XA - Displacement of intrauterine contraceptive device, initial encounter AMB Endometrial Biopsy Today N93.9 - Abnormal uterine and vaginal bleeding, unspecified Coding Level of Care Code Est Pt Level 3 (91720) Procedure Only Diagnoses IUD strings lost T83.32XA Abnormal uterine bleeding (AUB) N93.9 CPT Codes Endometrial Biopsy - CPT: 99269-Wmjqblmnwep Biopsy ([id number])
--- OUTSIDE RECORDS SUMMARY | 2025-07-07 14:43 | XMS_ITS | Clinical Summary ---
Author Organization [facility] ity Address [address] [place] [address] Care Team Providers Care Investor Name Role Phone Unavailable Primary Care Provider [...]
--- OUTSIDE RECORDS SUMMARY | 2025-07-07 14:43 | XMS_ITS | Clinical Summary ---
Author Organization [facility] Address [address] [place] [address] Phone Care Team Providers Care Career Information Specialist Name Role Phone Eren Mcpherson MD Unavailable Garo Crowell MD Unavailable Megan Guevara RN Unavailable BRONWYN [email or web address] Marija Fair RN Unavailable GISELLE FOOTE@[email or web address].[place].[facility] Vy Summers RN Unavailable TRAMAINE MARTE@[email or web address].[place].[facility] Alessandra German RN Unavailable Marisabel [email or web address] Martha Méndez SCREWHEAD STONER AND POLISHER Unavailable [phone] Pcp, Unknown Primary Care Provider Unavailabl e [...] Has been unrevealing She was referred to [facility] for additional testing options She is advised to continue current medications and ongoing management per neurology both locally and at [facility] Assessment & Plan (03/16/2021 2:16 [...] seen in a local ER; records from [facility] reviewed at the time of this [...] seen in a local ER; records from [facility] reviewed at the time of this visit She was treated with Reglan, Benadryl and Toradol She is currently taking ibuprofen with improvement of symptoms She is advised to begin magnesium as discussed I resent her prescription for imitrex to [facility] where this will be less expensive We will reassess in 1 week or sooner with any decline in symptoms We will refer to neurology for their input Assessment & Plan (08/12/2020 9:42 AM EST): Persistent frontal migraine for the last week No injury or trauma prior to onset No vision changes Nonresponsive to erau-rre-ihaqafu medications that typically provide relief No associated [...] plan to proceed with bariatric surgery at [facility] Preop paperwork completed today She is an acceptable surgical risk Assessment & Plan (11/15/2020 8:04 AM EDT): Ongoing inability to lose weight Admittedly she has not been very active due to issues with migraines She is referred to bariatric surgery at [facility] Contact info given and she is [...] SEE NARRATIVE - 03/30/2021 8:43 [place] [address] Logistic Manager: Ayden Morel MD CASHIER WRAPPER Cytology Report FINAL DIAGNOSIS A. CERVICAL, LIQUID BASED SPECIMEN: SPECIMEN ADEQUACY: Satisfactory for evaluation; transformation zone present. INTERPRETATION: NEGATIVE FOR INTRAEPITHELIAL LESION OR MALIGNANCY. Reactive changes. Coccobacilli consistent with shift in delfina This specimen was analyzed by the automated ThinPrep Imaging System ([employer] and manually rescreened by a dust collector operator and/or pathologist. Electronically Signed Out By: MD [...] cytotech screening of this specimen performed at [facility], [address] [place] [address]. Professional services provided by [facility] [place] [address]. Sonia Ordaz MD, Registry Np Patient Name: YAS WORTHINGTON : 1985 (Age: 35) Sex: F Institution: [facility] Location: [facility] Date of Collection: 03/16/2021 Date of Reported: 03/30/2021 08:43 Ordered By: Greer Perez BASKET GRADER Copy To: Greer Beltran CNP CYTOLOGY ORDERABLES Final Re sult Performing Organization Address City/[facility] Co de Phone Number SEE NARRATIVE * Hepatitis C antibody, qualitative (02/16/2021 8:12 AM EDT) HCV ANTIBODY Non-Reacti ve Non-Reacti ve [facility] Blood 02/16/2021 8:12 AM EDT 02/16/2021 8:23 AM EDT Greer Beltran CNP LAB BLOOD BKR ORDERABLES Fin al Result Performing Organization Address [facility] Co de Phone Number [address] [address], [facility] from Last 3 Months or Most Recently Relevant to Health Maintenance Insurance [facility] MY CARE FAMILY ACO MGBHP MY CARE FAMILY ACO MGBHP MY CARE FAMILY ACO MGBHP MY CARE FAMILY ACO MGBHP MY CARE FAMILY ACO MGBHP MY CARE FAMILY ACO MGBHP MY CARE FAMILY ACO [facility] MY CARE FAMILY ACO [employer] [facility] MY CARE FAMILY ACO Care Teams Career Information Specialist Relationship Specialty Start Date End Date Pcp, Unknown PCP - General 12/23/24 Eren Mcpherson MD [address] [place] [phone] COLT@[email or web address] Historical LMR Provider 08/07/18 Garo Crowell MD [address] [place] [address] ARJUN@[email or web address] Primary Oncologist Medical Oncology 06/21/20 Megan Guevara, JOANNE [address] [place] [address] PRITI@[facility] Primary Infusion Nurse 08/05/20 Marija Fair RN [address] [place] [address] YUAN@[email or web address] Associate Infusion Nurse 08/09/20 Vy Summers, JOANNE [address] [place] [address] LAWANDA@[facility] Nurse Navigator Oncology 10/11/20 Alessandra German, JOANNE [address] [place] [address] Madina@[email or web address] Associate Infusion Nurse 05/16/21 Martha Méndez CNP [address] [place] [phone] ROBERT@[email or web address] Oncology 05/22/21 Additional Source Comments The information contained in this document represents components of the legal health record. It is not the complete legal health record.[facility]
--- OUTSIDE RECORDS SUMMARY | 2025-07-07 14:43 | XMS_ITS | Encounter Summary ---
Author Organization [facility] Address [address] [place] [address] Phone Care Team Providers Care Superintendent Circus Name Role Phone Eren Mcpherson MD Unavailable Garo Crowell MD Unavailable Megan Guevara RN Unavailable BRONWYN [email or web address] Marija Fair RN Unavailable GISELLE FOOTE@[email or web address] Greer Beltran MENTAL HEALTH PROFESSIONAL Primary Care Provider [phone] Vy Summers RN Unavailable TRAMAINE MARTE@[facility] Eren Mcpherson MD Unavailable Alessandra German RN Unavailable Marisabel [email or web address] Martha Méndez MENTAL HEALTH PROFESSIONAL Unavailable [phone] Marc Meneses DO Unavailable Pcp, Unknown Primary Care Provider Unavailabl e Encounter Details Date Type Department Care Team (Late st Contact Info) Description 08/26/2020 Procedure Pass [facility] - Radiology - [place] [address] [place] [address] Social History Tobacco Use Types Packs/Day Years [...] documented as of this encounter Care Teams Superintendent Circus Relationship Specialty Start Date End Date Greer Beltran CNP [address] [place] [address] [email or web address] PCP - General Family Medicine 08/11/20 12/22/24 Pcp, Unknown PCP - General 12/23/24 Eren Mcpherson MD [address] [place] [phone] [email or web address] Historical LMR Provider 08/07/18 Garo Crowell MD [address] [place] [address] ARJUN@[email or web address] Primary Oncologist Medical Oncology 06/21/20 Megan Guevara RN [address] [place] [address] PRITI@[facility] Primary Infusion Nurse 08/05/20 Marija Fair RN [address] [place] [phone] YUAN@[email or web address] Associate Infusion Nurse 08/09/20 Vy Summers RN [address] [place] [address] LWAANDA@[facility] Nurse Navigator Oncology 10/11/20 Eren Mcpherson MD [address] [place] [address] [email or web address] Insurance Assigned Provider 12/11/20 09/10/21 Alessandra German RN [address] [place] [address] [email or web address] Associate Infusion Nurse 05/16/21 Martha Méndez CNP [address] [place] [phone] ROBERT@[email or web address] Oncology 05/22/21 Marc Meneses DO [address] [place] [phone] Insurance Assigned Provider 12/15/22 04/13/23 documented as of this encounter Additional Source Comments The information contained in this document represents components of the legal health record. It is not the complete legal health record.[facility]
--- OUTSIDE RECORDS SUMMARY | 2025-07-07 14:43 | XMS_ITS ---
Author Organization [facility] Address [address] [place] [address] [place] [phone] Phone Care Team Providers Care High School Coach Name Role Phone Eren Mcpherson MD Unavailable Garo Crowell MD Unavailable Megan Guevara RN Unavailable [email or web address] Marija Fair RN Unavailable [email or web address] Vy Summers RN Unavailable [email or web address] Alessandra German RN Unavailable [email or web address] Martha Méndez [employer] SALESPERSON Unavailable [phone] Pcp, Unknown Primary Care Provider Unavailabl e [...] seen in a local ER; records from [facility] reviewed at the time of this visit [...] seen in a local ER; records from [facility] reviewed at the time of this visit She was treated with Reglan, Benadryl and Toradol She is currently taking ibuprofen with improvement of symptoms She is advised to begin magnesium as discussed I resent her prescription for [place] to [facility] [place] where this will be less expensive We will reassess in 1 week or sooner with any decline in symptoms We will refer to neurology for their input Assessment & Plan (08/12/2020 9:42 AM EST): Persistent frontal migraine for the last week No injury or trauma prior to onset No vision changes Nonresponsive to [id number] medications that typically provide relief No associated [...] plan to proceed with bariatric surgery at [facility] Preop paperwork completed today She is an acceptable surgical risk Assessment & Plan (11/15/2020 8:04 AM EDT): Ongoing inability to lose weight Admittedly she has not been very active due to issues with migraines She is referred to bariatric surgery at [facility] Contact info given and she is advised [...]
--- OUTSIDE RECORDS SUMMARY | 2025-07-07 14:43 | XMS_ITS | Patient Health Record ---
Author Organization [facility] Address [address] [id number] Care Team Providers Care Playground Worker Name Role Phone Rex FLOWERS, 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
== END 2025-07-07 14:14 | disposition home or self-care (01) ==
LOC: HO.HWS 13:14
PROVIDERS: PCP Internal Medicine; Visit Provider Obstetrics & Gynecology
DX: T83.32XA Displacement of intrauterine contraceptive device, initial encounter (principal); N93.9 Abnormal uterine and vaginal bleeding, unspecified; Z32.02 Encounter for pregnancy test, result negative
CPT/HCPCS: 58100; 99213